=== PATIENT | female | born 1940 | race Caucasian/White ===

== ENCOUNTER 2019-03-03 22:50 | Inpatient (IN) | payer MEDICARE ==
--- NOTE | 2019-03-03 22:55 | ED ---
Complex/Multi-Sys Presentation - HPI Summary HPI Summary: This patient is a 78 year old F presenting to [facility] by EMS with a chief complaint of general pain. Pt called EMS because she had not had a BM in 3-4 days, and a severe pain in her buttock. Per EMS, pt also had abdominal pain and SOB. Pt lives with . Pt reports she cannot move or roll over. Patient reports nausea, loss of appetite. Patient denies vomiting. Pt was supposed to have an appointment with Dr. Kraus on 01/26/19. Pt is not getting radiation or chemotherapy. Per triage, the patient rates the pain 6/10 in severity. - History Of Current Complaint Chief Complaint: EDAbdPain Hx Obtained From: Patient Onset/Duration: Gradual Onset, Lasting Days, Still Present Timing: Constant Severity Currently: Moderate Severity Initially: Moderate Location: Pain At: - Abdomen, Buttock Aggravating Factor(s): Nothing Alleviating Factor(s): Nothing Associated Signs And Symptoms: Positive: SOB, Abdominal Pain, Other - Constipation, nausea, loss of appetite, buttock pain - Allergies/Home Medications Allergies/Adverse Reactions: Allergies Allergy/AdvReac Type Severity Reaction Status Date / Time Carbapenems Allergy Unknown Verified 03/03/19 23:59 Reaction Details Cephalosporins Allergy Unknown Verified 03/03/19 23:59 Reaction Details Penicillins Allergy Unknown Verified 03/03/19 23:59 Reaction Details PMH/Surg Hx/FS Hx/Imm Hx Endocrine/Hematology History: Reports: Hx Thyroid Disease Cardiovascular History: Reports: Hx Hypertension Musculoskeletal History: Reports: Hx Arthritis Sensory History: Reports: Hx Contacts or Glasses Opthamlomology History: Reports: Hx Contacts or Glasses - Surgical History Surgery Procedure, Year, and Place: R Hip replacement, Appy, cholecystectomy Infectious Disease History: No Infectious Disease History: Denies: Traveled Outside the [place] in Last 30 Days - Family History Known Family History: Negative: Hypertension, Diabetes - Social History Lives: With Family Alcohol Use: None Substance Use Type: Reports: None Smoking Status (MU): Light Every Day Tobacco Smoker Type: Cigarettes Have You Smoked in the Last Year: Yes Review of Systems Positive: Other - pos - loss of appetite Positive: Shortness Of Breath Positive: Abdominal Pain, Nausea, Other - pos - constipation. Negative: Vomiting Positive: Other - pain in buttock All Other Systems Reviewed And Are Negative: Yes Physical Exam - Summary Physical Exam Summary: Appearance: Well-appearing, Well-nourished, lying in bed comfortably Skin: Warm, dry, no obvious rash Eyes: sclera anicteric, no conjunctival pallor ENT: mucous membranes moist; Oral pharyngeal thrush Neck: Supple, nontender Respiratory: Clear to auscultation, no signs of respiratory distress Cardiovascular: Normal S1, S2. No murmurs. Normal distal pulses in tibial and radial bilaterally. Abdomen: Soft, nontender, normal active bowel sounds present; Focal tender in RLQ with guarding, no hernia on abdominal wall. Musculoskeletal: Normal, Strength/ROM Intact Neurological: A&Ox3, awake and alert, mentation is normal, speech is fluent and appropriate Psychiatric: affect is normal, does not appear anxious or depressed Triage Information Reviewed: Yes Vital Signs On Initial Exam: Initial Vitals Temp Pulse Resp BP Pulse Ox 98 F 117 16 148/87 93 03/03/19 22:51 03/03/19 22:51 03/03/19 22:51 03/03/19 22:51 03/03/19 22:51 Vital Signs Reviewed: Yes Diagnostics - Vital Signs Vital Signs Temp Pulse Resp BP Pulse Ox 03/03/19 22:51 98 F 117 16 148/87 93 - Laboratory Result Diagrams: 03/03/19 23:18 03/04/19 02:39 Lab Statement: Any lab studies that have been ordered have been reviewed, and results considered in the medical decision making process. - Radiology Abdomen/Pelvis CT Radiology Interpretation Completed By: Radiologist Summary of Radiographic Findings: Abdomen/Pelvis CT reveals, per radiologist, IMPRESSION: 1. Free air consistent with perforated viscus. 2. Colonic diverticulosis with slight wall thickening of the mid sigmoid. Greatest perienteric gas and fluid with mesenteric induration is noted in the. pelvis and is likely the site of perforation. There may be minimal mid sigmoid. diverticulitis. 3. Collection of gas and fluid within the mesentery in the left pelvis which is. surrounded by small bowel segments and may reflect early abscess. There is a. small bowel obstruction with a tapering transition which corresponds to bowel. segments around this collection and may reflect adynamic segments forming the. obstruction. 4. Right lower lobe consolidation with central lobular contour of the. consolidation which may reflect a central mass. There is adjacent trace right. pleural effusion and minimal bibasilar fibro-atelectatic change. 5. There has been prior cholecystectomy and hysterectomy. 6. Left ovarian cyst measuring 2.2 x 1.2 x 2.4 cm. 7. Fatty infiltration of the liver. 8. Focal nodular enlargement of the left michael of the diaphragm measuring 18 x. 19 x 22 mm of uncertain etiology. Metastatic disease is not excluded. ED physician has reviewed this radiology report. - EKG 2305 EKG Rhythm: Atrial Fibrillation Summary of EKG Findings: An EKG at 2305 reveals atrial fibrillation 105 bpm. No STEMI. Complex Multi-Symp Course/Dx Course Of Treatment: This patient is a 78 year old F presenting to [facility] by EMS with a chief complaint of general pain. Pt called EMS because she had not had a BM in 3-4 days, and a severe pain in her buttock. Per EMS, pt also had abdominal pain and SOB. Pt lives with . Pt reports she cannot move or roll over. Patient reports nausea, loss of appetite. Patient denies vomiting. Pt was supposed to have an appointment with Dr. Kraus on 01/26/19. Pt is not getting radiation or chemotherapy. Per triage, the patient rates the pain 6/10 in severity. Physical exam findings are nml except oral pharyngeal thrush, and focal tender RLQ with guarding. Blood work obtained. WBC is 13.9, RBC is 5.31, MCV is 77, MCH is 24, RDW is 20, Plt Count is 149, Sodium is 130, Chloride is 99 , Carbon dioxide is 20, BUN is 43, Creatinine is 0.96, BUN/Creatinine Ratio is 44.8, Glucose is 123, Alkaline Phosphatase is 137, C-reactive Protein is 298.96 , Total protein is 5.6, Albumin is 2.4, Albumin/Globulin Ratio is 0.8. An EKG at 2305 reveals atrial fibrillation 105 bpm. No STEMI. Abdomen/Pelvis CT reveals, per radiologist, IMPRESSION: 1. Free air consistent with perforated viscus. 2. Colonic diverticulosis with slight wall thickening of the mid sigmoid. Greatest perienteric gas and fluid with mesenteric induration is noted in the. pelvis and is likely the site of perforation. There may be minimal mid sigmoid. diverticulitis. 3. Collection of gas and fluid within the mesentery in the left pelvis which is. surrounded by small bowel segments and may reflect early abscess. There is a. small bowel obstruction with a tapering transition which corresponds to bowel. segments around this collection and may reflect adynamic segments forming the. obstruction. 4. Right lower lobe consolidation with central lobular contour of the. consolidation which may reflect a central mass. There is adjacent trace right. pleural effusion and minimal bibasilar fibro-atelectatic change. 5. There has been prior cholecystectomy and hysterectomy. 6. Left ovarian cyst measuring 2.2 x 1.2 x 2.4 cm. 7. Fatty infiltration of the liver. 8. Focal nodular enlargement of the left mihcael of the diaphragm measuring 18 x. 19 x 22 mm of uncertain etiology. Metastatic disease is not excluded. In the ED course the patient was given morphine, fluids, ciprofloxacin, flagyl and ondansetron Inj. Discussed case with Dr. Lara, recommends IV fluids, antibiotics, and admit to hospitalist. 16:48- Discussed case with Dr. Hannon, who accepts pt for admission. Patient will be admitted. The patient is agreeable with this plan. - Diagnoses Provider Diagnoses: Perforation of sigmoid colon due to diverticulitis - Physician Notifications Discussed Care Of Patient With: Jose Lara Time Discussed With Above Provider: 16:29 Instructed by Provider To: Other - Discussed case with Dr. Lara, recommends IV fluids, antibiotics, and admit to hospitalist. 16:48- Discussed case with Dr. Hannon, who accepts pt for admission. - Critical Care Time Critical Care Time: 30-74 min Discharge ED - Sign-Out/Discharge Documenting (check all that apply): Patient Departure - Admit Patient Received Moderate/Deep Sedation with Procedure: No - Discharge Plan Condition: Stable Disposition: ADMITTED TO [facility] Referrals: Ismael Ramirez DO [Primary Care Provider] - - Billing Disposition and Condition Condition: STABLE Disposition: Admitted to [facility] - Attestation Statements Document Initiated by Scribe: Yes Documenting Scribe: Sabina Jackson Provider For Whom Phil is Documenting (Include Credential): Karthik Bangura MD Scribe Attestation: Sabina Cooney, scribed for Karthik Bangura MD on 03/04/19 at 0517. Scribe Documentation Reviewed: Yes Provider Attestation: The documentation as recorded by the Sabina kemp accurately reflects the service I personally performed and the decisions made by me, Karthik Bangura MD Status of Scribe Document: Viewed
[2019-03-03] MEDS ORDERED: NS 0.9% 1000 ML** 2,000 ML IV ONE (22:56)
[2019-03-03] MEDS ORDERED: Morphine 4 MG/ML VIAL (1 ml) 4 MG/ML VIAL IV PRN (22:56)
[2019-03-03] MEDS ORDERED: Ondansetron INJ* 2 MG/ML VIAL IV ONE (22:56)
[2019-03-03] MEDS ORDERED: Morphine 4 MG/ML VIAL (1 ml) 4 MG/ML VIAL IV ONE (23:04)
[2019-03-03] MEDS ORDERED: Morphine 4 MG/ML VIAL (1 ml) 4 MG/ML VIAL ONE (23:06)
[2019-03-03 23:38] LABS: ABS Eosinophils 0.1 10^3/ul (0-0.6); ABS Monocytes 0.5 10^3/ul (0-0.8); ABS Neutrophils 12.2 10^3/ul (1.5-7.7); Hematocrit 41 % (35-47); Hemoglobin 12.9 g/dL (12.0-16.0); Lymphocyte % 7.3 %; Mean Corpuscular HGB Conc 32 g/dL (31-36); Mean Corpuscular Hemoglobin 24 pg (27-31); Mean Corpuscular Volume 77 fL (80-97); Mean Platelet Volume 9.2 fL (7.4-10.4); Nucleated Red Blood Cells % 0.1; Platelet Count 149 10^3/uL (150-450); Red Blood Count 5.31 10^6 /uL (3.70-4.87); Red Cell Distribution Width 20 % (10-15); White Blood Count 13.9 10^3/uL (3.5-10.8)
[2019-03-03 23:39] LABS: Albumin 2.4 g/dL (3.2-5.2); CO2 Carbon Dioxide 20 mmol/L (22-32); Calcium 8.6 mg/dL (8.6-10.3); Chloride 99 mmol/L (101-111); Sodium 130 mmol/L (135-145)
[2019-03-03 23:45] LABS: Blood Urea Nitrogen 43 mg/dL (6-24); Glucose 123 mg/dL (70-100)
[2019-03-04 00:16] LABS: ALT 48 U/L (7-52); Albumin/Globulin Ratio 0.8 (1-3); Alkaline Phosphatase 137 U/L (34-104); Anion Gap 11 mmol/L (2-11); BUN/Creatinine Ratio 44.8 (8-20); C Reactive Protein 298.96 mg/L (<8.01); EGFR African American 68.2 (>60); EGFR Non-African American 56.4 (>60); Globulin 3.2 g/dL (2-4); Total Protein 5.6 g/dL (6.4-8.9)
[2019-03-04 01:12] LABS: Urine Appearance Cloudy; Urine Bacteria 3+ (Absent); Urine Bilirubin Negative (Negative); Urine Blood Negative (Negative); Urine Color Amber; Urine Glucose Negative (Negative); Urine Ketones Trace (Negative); Urine Nitrite Negative (Negative); Urine Protein 1+(30 mg/dL) (Negative); Urine Red Blood Cell Absent (Absent); Urine Specific Gravity 1.027 (1.010-1.030); Urine Squamous Epithelial Cell Present (Absent); Urine Urobilinogen Negative (Negative); Urine White Blood Cell 2+(11-20/hpf) (Absent)
[2019-03-04] MEDS ORDERED: Iodixanol* (CONTRAST) 320 MG/ML 100 ML SDV IV ONE (01:41)
[2019-03-04] MEDS ORDERED: Ondansetron INJ* 2 MG/ML VIAL IV ONE (01:53)
[2019-03-04] MEDS ORDERED: Ciprofloxacin 400MG IVPREMIX(* 400 MG/200 ML BAG IVPB ONE (02:58)
[2019-03-04] MEDS ORDERED: metroNIDAZOLE IV 500 MG/100ML* 500 MG/100 ML BAG IVPB ONE (02:58)
[2019-03-04] MEDS ORDERED: NS 0.9% 1000 ML** 2,000 ML IV ONE (03:31)
[2019-03-04] MEDS ORDERED: Morphine 4 MG/ML VIAL (1 ml) 4 MG/ML VIAL IV PRN (06:24)
[2019-03-04] MEDS ORDERED: NS 0.9% 1000 ML** 1,000 ML IV SCH ×3 (06:30→17:30)
--- NOTE | 2019-03-04 10:37 | HP ---
CC: Dr. Ismael Ramirez; Dr. Jose Lara * ADMISSION HISTORY AND PHYSICAL: DATE OF ADMISSION: 03/04/19 CHIEF COMPLAINT: Abdominal pain. 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 The patient stated that she has been having difficulty with her bowel movements, has not had any bowel movements for almost 3 to 4 days. She went to [place] for some radiation of her brain or could be a Gamma Knife therapy, she is not able to recollect. She states that she is a little confused at this point about what exactly transpired. Either way, she stated that ever since coming back from [place], she has been having worsening pain and her activity has decreased and today she could not even get out of bed or roll into that due to severe pain in her belly. She has also been having severe nausea, but no vomiting, and as mentioned no bowel movements. She has noticed increased urination over the last few days, but given the fact that she could not get up and she has had decreased appetite, she finally decided to come to the ER for further evaluation. After coming to the ER and the patient having an NG tube placement, she does feel a lot better. She otherwise denies any fever or chills. PAST MEDICAL HISTORY: As mentioned, history of AFib, was on Xarelto up until a few months ago when she was admitted at [facility] and was discontinued; history of hypothyroidism; history of hypertension; history of dyslipidemia; history of arthritis; history of recently diagnosed what sounds like right lung cancer with metastasis to the right shoulder and may be even to the brain. She does state that she received some brain radiation. She is scheduled to see Dr. Venu Kraus on Tuesday. She also has a history of spinal stenosis and has been taking multiple narcotics for her pain. PAST SURGICAL HISTORY: Include a disk rupture in the lumbar spine area, which required surgical correction; cholecystectomy; partial hysterectomy, and a right hip surgery. HOME MEDICATIONS: The patient is currently on: 1. Ultram 50 mg q.8 hours p.r.n. 2. Bactrim DS 1 tab p.o. b.i.d. 3. Simvastatin 40 mg p.o. daily at bedtime. 4. Omeprazole 20 mg every morning. 5. Naproxen 220 mg q.8 hours p.r.n. 6. Mometasone by inhalation daily. 7. Lisinopril 20 mg oral daily. 8. Synthroid 50 mcg p.o. every morning. 9. Hydrochlorothiazide 25 mg oral daily. 10. Calcium citrate 1 tablet oral daily. 11. Aspirin 81 mg oral daily. ALLERGIES: The patient is documented to be allergic to CARBAPENEM, CEPHALOSPORIN, and PENICILLIN. FAMILY HISTORY: Father of [place], mother at age of 92 due to old age, but otherwise noncontributory at this point. SOCIAL HISTORY: The patient quit smoking about 4 to 5 months ago, prior to that was heavy smoker. Denies any alcohol or drug abuse. Lives with her , who is her surrogate decision maker and the patient already opted for DNR/DNI, as she states that there is a lot going on with her and she does not want to be resuscitated. REVIEW OF SYSTEMS: A 14-point review of systems did not reveal any new information other than what is stated in the HPI. PHYSICAL EXAMINATION GENERAL: The patient is awake, alert, oriented x3, did not appear to be in any acute respiratory distress. VITAL SIGNS: In the ER, BP was noted to be 109/68, heart rate 92, respiration rate 14, temperature was 98 degrees Fahrenheit, oxygen saturation is 97% on room air. HEAD AND NECK: Atraumatic, normocephalic. Oral mucosa was dry. Neck is supple. No jugular venous distention. LUNGS: Few intermittent rhonchi, but otherwise clear. HEART: S1, S2. Regular rate and rhythm. ABDOMEN: Distended with minimal tenderness. EXTREMITIES: Bilateral lower extremity edema was noted, which was nonpitting in nature. DIAGNOSTIC STUDIES/LAB DATA: Labs: CBC shows mildly elevated white count of 13.9, hemoglobin and hematocrit stable. Platelet count was found minimally decreased at 49. Comprehensive metabolic panel shows minimally decreased sodium at 139, bicarb minimally decreased at 20, lactic acid was noted to be 1.3 , C-reactive protein at 298. Albumin was decreased at 2.4. Potassium was still showing hemolyzed sample, so it is pending. Urinalysis shows trace leuk esterase and trace ketones, negative for any nitrite. There is 1+ protein noted. CT images was read as free air consistent with perforated viscus, colonic diverticulosis with slight wall thickening of the sigmoid colon, greatest perienteric gas and fluid with mesenteric is noted in the pelvis, it is likely the site of perforation. There may be minimal midsigmoid diverticulitis. Collection of gas and fluid with mesentery in the left pelvis with surrounding small bowel segment may reflect an abscess. There was a small bowel obstruction with tapering transition, which corresponds to small bowel subsegments around this collection may reflect adynamic segments forming the obstruction. Right lower lobe consolidation with central lobular contour of the consolidation, which may reflect residual mass. There is adjacent trace right pleural effusion and minimal bibasilar fibroelastic change. There is prior hysterectomy and cholecystectomy. Left ovarian cyst and fatty infiltration of the liver, focal nodular enlargement of left michael of the diaphragm measuring 18 x 19 x 22 mm of uncertain etiology, metastatic disease is not excluded. EKG showed AFib at 105 beats per minute. When compared to her older EKG from 2006, the waveform is not significantly different. IMPRESSION: This is a 78-year-old female with unfortunate history of lung cancer with metastasis to shoulder and brain; history of atrial fibrillation, recently stopped anticoagulation for unknown reason at [facility] ; hypothyroidism; hypertension; and previous multiple abdominal surgeries here with small bowel obstruction and perforated viscus. ASSESSMENT AND PLAN: 1. Small bowel obstruction and perforated viscus. According to the surgeon that the ER physician spoke to, this is likely contained and recommended IV fluids and antibiotics. We will consult surgeon to reevaluate the patient to see if any laparotomy is to be performed, especially as the CT scan was suggestive of some early abscess formation. In the meantime, we will continue the Cipro, Flagyl that was started in the ER. Continue with low intermittent suction via NG tube and keep the patient n.p.o. and hold all BP medications as the patient may become septic and septic shock. 2. Right lung mass, likely the lung cancer rather than a real consolidation, but the patient is on broad-spectrum antibiotics with fluoroquinolones, which would cover any pneumonia if truly present. 3. History of atrial fibrillation, off anticoagulation. 4. History of hypertension. We will hold BP medications as listed. 5. History of hypothyroidism. We can replace home levothyroxine with IV at half the dosage. 6. History of dyslipidemia. We will hold cholesterol medication. 7. History of arthritis and spinal stenosis, on multiple pain medications. 8. History of lung cancer with brain metastasis, on multiple pain medications. Sees Dr. Kraus. 9. DVT prophylaxis with Lovenox. 10. Code status. The patient wishes to be DNR/DNI and being the surrogate decision maker. [id number]/CPS #: [id number]
[2019-03-04] MEDS: Enoxaparin(*) 40 MG/0.4 ML SYR SUBCUT SCH (10:46)
[2019-03-04] MEDS: Ciprofloxacin 400MG IVPREMIX(* 400 MG/200 ML BAG IVPB SCH (15:06)
[2019-03-04] MEDS: Hydrocortisone INJ* 100 MG VIAL IV SCH ×2 (15:06→22:39)
[2019-03-04] MEDS: metroNIDAZOLE IV 500 MG/100ML* 500 MG/100 ML BAG IVPB SCH (16:34)
[2019-03-04] MEDS ORDERED: fentaNYL* 50 MCG/ML 2 ML VIAL (100 MCG VIAL) ONE ×3 (17:08→22:36)
[2019-03-04] MEDS ORDERED: Midazolam* 1 MG/ML 5 ML VIAL (5 MG) ONE (17:09)
[2019-03-04] MEDS ORDERED: Levalbuterol 0.63MG/3ML NEB* UNIT OF USE INH ONE (17:26)
--- NOTE | 2019-03-04 17:26 | PN ---
Progress Note - Progress Note Date of Service: 03/04/19 Note: After further review of the patient with Dr. Mojica and after further discussion with the patient, I have recommended we proceed to the OR for Dennis procedure. The nature of the procedure, indications, risks, benefits, alternatives and option of no treatment have been discussed. Risks explained including, not limited to: bleeding, infection, pain, scarring, blood clots, stroke, pneumonia, prolonged ventilation, risk of GETA and . All questions answered. She stated understanding and agreed to proceed. I also called her daughter in law, Ivette Brito, at her request to inform the family as her is hard of hearing.
[2019-03-04] MEDS ORDERED: Famotidine IV* 10 MG/ML 2 ML (20 mg) IV ONE (17:28)
[2019-03-04] MEDS ORDERED: Rocuronium* 10 MG/ML VIAL ONE ×2 (18:56→21:01)
[2019-03-04] MEDS ORDERED: Phenylephrine 40 MCG/ML SYRINGE ONE (20:24)
[2019-03-04] MEDS ORDERED: Dexamethasone IV* 4 MG/ML 1 ML (4 MG) ONE (20:24)
[2019-03-04] MEDS ORDERED: EPHEDrine (Pressors)* 50 MG/ML VIAL ONE (20:24)
[2019-03-04] MEDS ORDERED: DiMENhydriNATE IV* 50 MG/ML VIAL ONE (20:24)
[2019-03-04] MEDS ORDERED: Lidocaine 2% PF * 5 ML VIAL ONE (20:24)
[2019-03-04] MEDS ORDERED: Ketorolac INJ* 30 MG/ML 1 ML VIAL ONE (20:24)
[2019-03-04] MEDS ORDERED: Ondansetron INJ* 2 MG/ML VIAL ONE (20:24)
[2019-03-04] MEDS ORDERED: Propofol* 10 MG/ML 20 ML BTL ONE (20:24)
[2019-03-04] MEDS ORDERED: Succinylcholine* 20 MG/ML 10 ML VIAL ONE (20:24)
[2019-03-04] MEDS ORDERED: Phenylephrine 10 MG/ML VIAL* 1 ML VIAL ONE (20:24)
[2019-03-04] MEDS ORDERED: HYDROmorphone INJ1* 1 MG/ML SYRINGE ONE ×2 (20:43→21:24)
[2019-03-04] MEDS ORDERED: Metoprolol Tartrate IV* 1 MG/ML 5 ML VIAL ONE (21:06)
--- NOTE | 2019-03-04 21:38 | CONS ---
CC: Ismael Ramirez DO; Venu Kraus MD * SURGICAL CONSULTATION REPORT: DATE OF CONSULT: 03/04/19 REASON FOR CONSULT: Sigmoid diverticulitis and small bowel obstruction. HISTORY OF PRESENT ILLNESS: Corazon Christensen is a 78-year-old female with a recently diagnosed lung cancer with metastasis to her shoulder. She has a brain lesion for which she recently underwent Gamma Knife treatment in [facility]. She states that was Tuesday this past week and after she came back, she developed abdominal pain. She does have a history of chronic constipation. Reports she took some stool softeners prior to that treatment. Her pain became worse and has been associated with nausea and decreased flatus. She presented to the emergency room and underwent an abdominal imaging that demonstrated free air, right lower lobe consolidation with suggestion of a mass, trace pleural effusion. She had distended stomach and proximal small bowel with some sigmoid wall thickening suggestive of the sigmoid as the potential source of the perforation. There was distal small bowel collapse, which was suggestive of small bowel obstruction. She was noted to be status post cholecystectomy and status post hysterectomy. The patient was administered antibiotics. She was admitted to the medical service. The patient at present reports abdominal pain that is primarily localized in the left lower quadrant. PAST MEDICAL HISTORY: Significant for metastatic lung cancer, atrial fibrillation, hypothyroidism, hypertension, dyslipidemia, arthritis. PAST SURGICAL HISTORY: She had open partial hysterectomy, cholecystectomy, lumbar spine surgery, and right hip surgery. HOME MEDICATIONS: 1. Decadron. 2. Ultram. 3. Bactrim. 4. Zocor. 5. Omeprazole. 6. Naprosyn. 7. Mometasone. 8. Zestril. 9. Synthroid. 10. Hydrochlorothiazide. 11. Calcium citrate. 12. Aspirin. ALLERGIES: CARBAPENEM, CEPHALOSPORIN, and PENICILLIN with unknown reaction to each. FAMILY HISTORY: Father had heart attack and . Mother of old age. SOCIAL HISTORY: She is . She has a history of smoking with recent cessation 4 to 5 months ago. Denies alcohol or drug use. REVIEW OF SYSTEMS: Completed and significant for the above-mentioned positives and negatives, otherwise 14-point review was negative. PHYSICAL EXAM: She is a 78-year-old female, 5 feet 2 inches, 200 pounds, BMI of 36.6 with temperature 97.6, pulse 91, respirations 18, O2 sat on room air of 96%, blood pressure 100/62. Head is normocephalic and atraumatic. Sclerae anicteric. Her mucous membranes appear moist. Her neck is notable for midline trachea. Her lungs are clear to auscultation bilaterally without wheezes. Her heart is irregularly irregular. S1, S2. Abdomen is obese. There are multiple scars. No bowel sound is present, is distended, soft. There is mild diffuse tenderness with marked tenderness in the left lower quadrant. The extremities are warm without cyanosis. DIAGNOSTIC STUDIES/LAB DATA: WBCs were 13.9, hemoglobin 12.9, platelets 149. No shift. Sodium was 130, chloride was 99, bicarb was 20, creatinine was 0.96, BUN was 40, glucose was 123, lactic acid was 1.3 and repeated at 1.0. Alk phos was elevated at 137. CRP was 298. Albumin was 2.4. Urine shows cloudy appearance, 1+ protein, trace ketones, 2+ wbc's, 3+ bacteria. CT imaging was reviewed and findings as noted above. IMPRESSION: This is a 78-year-old female with apparent perforated diverticulitis as well as small bowel obstruction. The patient is clinically appearing quite well, however. Although she does not appear septic, she is on steroids and this is of concern. I will further discuss with Dr. Mojica if further medical optimization needs to be done prior to surgery. I did discuss the surgical plan for laparotomy and Dennis procedure with the patient who seems to understand and does agree. [id number] #: [id number] MTDD
--- NOTE | 2019-03-04 22:29 | BRIEFOPN ---
Brief Operative/Procedure Note - Operation Details Pre-Op Diagnosis: PERFORATED SIGMOID DIVERTICULITIS; METASTATIC LUNG CA Post-Op Diagnosis: SAME WITH INTRAABDOMINAL ABSCESS; JEJUNAL TUMOR WITH LYMPHADENOPATHY Procedures: EXPLORATORY LAPAROTOMY; JENA PROCEDURE; SMALL INTESTINAL BYPASS (PROXIMAL JEJUNOJEJUNOSTOMY) Surgeon(s)/Proceduralists: ROSETTA Anesthesia: GET; ANYI. 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 Specimen(s)/Culture(s) Description: 1) ABSCESS FLUID FOR C&S. 2) SIGMOID COLON Complications: NONE
[2019-03-04] MEDS ORDERED: fentaNYL* 50 MCG/ML 2 ML VIAL (100 MCG VIAL) IV SLOW PU ONE (22:37)
[2019-03-04] MEDS: Lactated Ringers 1000 ML Bag* 1,000 ML IV SCH (22:40)
--- NOTE | 2019-03-04 22:40 | PN ---
Hospitalist Progress Note Date of Service: 03/04/19 HOSPITALIST ADDENDUM Called by SALES PERFORMANCE MANAGER to evaluate patient after transfer from OR. Mrs Christensen is a 78yo F with PMH of metastatic lung CA, Afib, hypothyroidism, HTN , HLD, arthritis, who presented to ED with c/o abdominal pain, found to have perforated viscus, taken to OR by Dr Lara where she underwent ex lap with Dennis procedure and small intestine bypass. Surgical findings of extensive peritonitis, perforated sigmoid diverticulitis, intraabdominal abscess, 2 jejunum tumors with lymphadenopathy. On arrival to ICU patient is tachycardic, in Afib, with HR 150; SBP was in the 80s, but had just received Neosynephrine by Anesthesia, so BP was 120/60 when I saw her. Had also received a Propofol bolus prior to my evaluation, so she was sedated and comfortable. A/P: Severe sepsis secondary to perforated viscus with peritonitis - D/w Dr Montero and Dr Lara. - Will start Fentanyl drip for sedation, and Amiodarone drip for Afib control. She's on Cipro and Flagyl, but reported allergies to Carbapenems, cephalosporins , and penicillins preclude another antibiotic regimen; so despite interaction between Amiodarone and current antibiotics, that's the best option for now. - Continue aggressive fluid resuscitation. Dr Lara will place a central line as she'll require pressors if no response to fluids. - Continue IV steroids as she on steroids as outpatient and at risk for relative adrenal insufficiency. - Continue to monitor closely in ICU.
[2019-03-04] MEDS ORDERED: Amiodarone 150 MG IVPREMIX* 150 MG/100 ML BAG IV ONE (22:43)
[2019-03-04] MEDS ORDERED: Amiodarone 360 MG IVPREMIX* 360 MG/200 ML BAG IV ONE (22:53)
[2019-03-04] MEDS ORDERED: Lactated Ringers 1000 ML Bag* 1,000 ML IV SCH (23:00)
[2019-03-04] MEDS ORDERED: fentaNYL INFUSION 50 MCG/ML* 2,500 MCG/50 ML BAG IV SCH (23:00)
[2019-03-04 23:48] LABS: ABS Eosinophils 0.1 10^3/ul (0-0.6); ABS Lymphocytes 0.4 10^3/ul (1.0-4.8); ABS Monocytes 0.4 10^3/ul (0-0.8); ABS Neutrophils 12.7 10^3/ul (1.5-7.7); Eosinophil % 0.8 %; Hematocrit 35 % (35-47); Hemoglobin 11.2 g/dL (12.0-16.0); Lymphocyte % 2.6 %; Mean Corpuscular HGB Conc 32 g/dL (31-36); Mean Corpuscular Hemoglobin 24 pg (27-31); Mean Corpuscular Volume 75 fL (80-97); Mean Platelet Volume 9.1 fL (7.4-10.4); Nucleated Red Blood Cells % 0.1; Platelet Count 163 10^3/uL (150-450); Red Cell Distribution Width 19 % (10-15); White Blood Count 13.6 10^3/uL (3.5-10.8)
[2019-03-05 00:05] LABS: Albumin 1.8 g/dL (3.2-5.2); Albumin/Globulin Ratio 0.8 (1-3); BUN/Creatinine Ratio 42.3 (8-20); Calcium 6.7 mg/dL (8.6-10.3); EGFR African American 138.4 (>60); EGFR Non-African American 114.3 (>60); Globulin 2.2 g/dL (2-4); Total Bilirubin 0.5 mg/dL (0.2-1.0)
[2019-03-05] MEDS: Lactated Ringers 1000 ML Bag* 1,000 ML IV SCH ×2 (00:11→12:09)
[2019-03-05] MEDS: metroNIDAZOLE IV 500 MG/100ML* 500 MG/100 ML BAG IVPB SCH ×3 (01:13→17:36)
[2019-03-05] MEDS ORDERED: Propofol* 100 ML ONE (02:09)
[2019-03-05] MEDS ORDERED: fentaNYL INFUSION 50 MCG/ML* 2,500 MCG/50 ML BAG IV SCH ×3 (02:11→10:38)
[2019-03-05] MEDS ORDERED: Propofol* 100 ML IV SCH (03:00)
[2019-03-05] MEDS: Ciprofloxacin 400MG IVPREMIX(* 400 MG/200 ML BAG IVPB SCH ×2 (03:38→15:15)
[2019-03-05] MEDS: Chlorhexidine MOUTHWASH 0.12%* 15 ML UDC TOPICAL SCH ×2 (04:12→08:44)
[2019-03-05] MEDS: Amiodarone 360 MG IVPREMIX* 360 MG/200 ML BAG IV SCH ×2 (05:45→17:37)
--- NOTE | 2019-03-05 06:03 | OP ---
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 ANESTHESIOLOGIST: Dr. Phipps. ANESTHESIA: General endotracheal. PRE-OP DIAGNOSES: Perforated sigmoid diverticulitis with small bowel obstruction and metastatic lung cancer. 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 OPERATIVE PROCEDURE: Exploratory laparotomy, drainage of intraperitoneal abscess, sigmoid colectomy with end colostomy, and jejunojejunal intestinal bypass. ESTIMATED BLOOD LOSS: 50 mL. IV FLUIDS: 3.7 L of crystalloid. SPECIMENS: 1. Peritoneal abscess fluid for culture and sensitivity. 2. Sigmoid colon. DRAINS: None. COMPLICATIONS: None. COUNTS: Instrument, needle, and sponge counts were correct. DESCRIPTION OF PROCEDURE: The patient was brought to the operating room and placed on the table supine. Sequential compression devices were placed on both lower extremities. General anesthesia was administered. The patient had a Garner catheter placed. She was positioned and padded appropriately and time- out was performed. A midline laparotomy was undertaken in the midline through previous scars extending this above the umbilicus and down to the suprapubic region. The peritoneal cavity was entered and the release of gas was noted. There was extensive fibrinous exudate noted all over the bowel and there was dilated small bowel proximally and collapsed small bowel distally. The sigmoid colon appeared to be erythematous, thickened, and findings were consistent with sigmoid diverticulitis. Upon mobilizing the small bowel from the abdominal cavity and abscess was entered and the abscess fluid was submitted to Microbiology. Copious lavage was performed until clear. Exploration of the abdomen was next performed. Palpation of the liver revealed no masses. Palpation of the stomach performed to confirm proper position of the nasogastric tube. The colon was noted to have a dilated cecum and this was high- riding on the right side. There was stool in the transverse colon and the descending colon was noted to have diverticular disease throughout in the sigmoid. There were adhesions in the pelvis of the rectosigmoid junction to the peritoneum anteriorly. She was noted to have had previous hysterectomy. Small bowel was run from the ileocecal proximally. There was a nodule in the mid jejunum and it was firm, but seemed to be within the wall of the jejunum itself and did not appear to be obstructing. At the proximal jejunum within 6-8 inches of the ligament of Chiki, there was a firm mass that was perhaps a centimeter wide and it was occupying half to two-thirds of the circumference of the wall. Within the mesentery adjacent were large lymph nodes. This mass did not appear to be obstructing at present but concern for evolving obstruction based on this malignant-appearing mass. It led to decision to perform bypass around the area of the mass. First the sigmoid colon was addressed. In the descending colon, the bowel was normal in thickness and a window was created in the mesentery there and the bowel was divided with a ADEBAYO stapler. The rectosigmoid junction where there were adhesions to the peritoneum was mobilized upward and the adhesions were divided to free the rectosigmoid junction. Then, the bowels encircled with the finger at the rectosigmoid junction window created in the mesentery there. The intervening mesentery between the stapled proximal end and the rectosigmoid junction was divided using the Liga-Sure. The rectum was then stapled off with the TA60 stapler and then the specimen was handed off. Copious lavage again was performed in the pelvis. Staple line was noted to be intact proximally and distally. At this point, a jejunojejunal bypass performed. Bookwalter retractor was positioned and then the loop of proximal jejunum was isolated. Enterotomies were made proximal and distal to the bowel mass and then the ADEBAYO 60 stapler was introduced through each limb and the anastomosis was created. The common enterotomy was run close with 3-0 PDS to complete this. Again, the irrigation was performed in this site. Copious lavage of the abdomen was performed until clear. The site for the colostomy had been marked preoperatively and a disk of skin was removed with cautery. Subcutaneous tissues were divided with cautery. The rectus fascia was incised in the cruciate fashion anteriorly. Rectus muscle was split and the bowel was then able to be delivered through the opening and oriented with the mesentery cephalad. At this point, the omentum was drawn beneath the wound and the midline wound was closed with running #1 PDS. The skin was closed with intermittent ciera and packed with half-inch plain gauze packing. The colostomy was matured with 3-0 Vicryl suture and ostomy appliance was applied with dressings. The patient tolerated the procedure well. She remained intubated and was transferred to the ICU directly in guarded condition. [id number]/[facility] #: [id number] MTDD
[2019-03-05] MEDS: Levothyroxine INJ* 100 MCG/5 ML VIAL IV SCH (06:07)
[2019-03-05] MEDS: Hydrocortisone INJ* 100 MG VIAL IV SCH ×3 (06:07→21:17)
[2019-03-05 06:29] LABS: ABS Eosinophils 0.1 10^3/ul (0-0.6); ABS Lymphocytes 0.5 10^3/ul (1.0-4.8); ABS Monocytes 0.4 10^3/ul (0-0.8); ABS Neutrophils 11.7 10^3/ul (1.5-7.7); Eosinophil % 0.5 %; Hematocrit 34 % (35-47); Hemoglobin 10.8 g/dL (12.0-16.0); Lymphocyte % 3.9 %; Mean Corpuscular HGB Conc 32 g/dL (31-36); Mean Corpuscular Hemoglobin 24 pg (27-31); Mean Corpuscular Volume 75 fL (80-97); Mean Platelet Volume 9.2 fL (7.4-10.4); Nucleated Red Blood Cells % 0.1; Platelet Count 138 10^3/uL (150-450); Red Blood Count 4.48 10^6 /uL (3.70-4.87); Red Cell Distribution Width 20 % (10-15); White Blood Count 12.6 10^3/uL (3.5-10.8)
[2019-03-05] MEDS ORDERED: fentaNYL* 50 MCG/ML 2 ML VIAL (100 MCG VIAL) IV ONE (06:36)
[2019-03-05 06:41] LABS: BUN/Creatinine Ratio 37.3 (8-20); EGFR African American 141.5 (>60); EGFR Non-African American 116.9 (>60); Potassium 3.7 mmol/L (3.5-5.0)
[2019-03-05] MEDS ORDERED: Lactated Ringers 1000 ML Bag* 1,000 ML IV ONE (07:00)
[2019-03-05] MEDS: Pantoprazole IV* 40 MG IV SCH (08:44)
[2019-03-05] MEDS: Enoxaparin(*) 40 MG/0.4 ML SYR SUBCUT SCH (08:44)
[2019-03-05 09:21] LABS: Magnesium 1.5 mg/dL (1.9-2.7); Phosphorus 2.8 mg/dL (2.5-5.0)
[2019-03-05] MEDS ORDERED: Magnesium Sulfate 2 GM IV* 2 GM/50 ML BAG IVPB ONE (09:29)
--- NOTE | 2019-03-05 09:45 | PN ---
Progress Note - Progress Note Date of Service: 03/05/19 SOAP: Subjective: She is intubated but on CPAP. Responding appropriately. Objective: Vital Signs Temp 97.6 F 03/05/19 07:50 Pulse 89 03/05/19 08:31 Resp 17 03/05/19 07:00 BP 103/62 03/05/19 08:00 Pulse Ox 99 03/05/19 08:31 Gen: intubated, eyes open. NGT draining bilious o/p Abd: incision with dressings intact; ostomy pink no fct; soft. Intake & Output 03/04/19 03/05/19 03/05/19 18:59 06:59 18:59 Intake Total 1984 3282 5 Output Total 945 35 Balance 1984 2337 -30 Weight 200 lb 225 lb 1.471 oz Intake: IV Fluids 1657 2733 ABX - FLAGYL 30 LR 2733 NS (0.9%) 1627 IVPB 328 320 ABX - CIPROFLOXACIN 219 210 ABX - FLAGYL 109 110 Medicated IV 229 CC - Amiodarone 213 CC - Propofol/Diprivan 16 IV Narcotic Infusion 5 Fentanyl 5 Oral 0 0 Output: NG Tube Drainage Amount 250 Garner 695 35 Laboratory Results - last 24 hr 03/04/19 03/04/19 03/04/19 23:29 23:29 23:29 WBC 13.6 H RBC 4.60 Hgb 11.2 L Hct 35 MCV 75 L MCH 24 L MCHC 32 RDW 19 H Plt Count 163 MPV 9.1 Neut % (Auto) 93.7 Lymph % (Auto) 2.6 [place] % (Auto) 2.9 Eos % (Auto) 0.8 Baso % (Auto) 0.0 Absolute Neuts (auto) 12.7 H Absolute Lymphs (auto) 0.4 L Absolute Monos (auto) 0.4 Absolute Eos (auto) 0.1 Absolute Basos (auto) 0.0 Absolute Nucleated RBC 0.0 Nucleated RBC % 0.1 Sodium 134 L Potassium 4.0 Chloride 107 Carbon Dioxide 20 L Anion Gap 7 BUN 22 Creatinine 0.52 Est GFR ( Amer) 138.4 Est GFR (Non-Af Amer) 114.3 BUN/Creatinine Ratio 42.3 H Glucose 131 H Lactic Acid 2.0 Calcium 6.7 L Phosphorus Magnesium Total Bilirubin 0.50 AST 11 L ALT 27 Alkaline Phosphatase 92 Total Protein 4.0 L Albumin 1.8 L Globulin 2.2 Albumin/Globulin Ratio 0.8 L 03/05/19 03/05/19 06:00 06:00 WBC 12.6 H RBC 4.48 Hgb 10.8 L Hct 34 L MCV 75 L MCH 24 L MCHC 32 RDW 20 H Plt Count 138 L MPV 9.2 Neut % (Auto) 92.8 Lymph % (Auto) 3.9 [place] % (Auto) 2.8 Eos % (Auto) 0.5 Baso % (Auto) 0.0 Absolute Neuts (auto) 11.7 H Absolute Lymphs (auto) 0.5 L Absolute Monos (auto) 0.4 Absolute Eos (auto) 0.1 Absolute Basos (auto) 0.0 Absolute Nucleated RBC 0.0 Nucleated RBC % 0.1 Sodium 134 L Potassium 3.7 Chloride 106 Carbon Dioxide 25 Anion Gap 3 BUN 19 Creatinine 0.51 Est GFR ( Amer) 141.5 Est GFR (Non-Af Amer) 116.9 BUN/Creatinine Ratio 37.3 H Glucose 123 H Lactic Acid Calcium 7.0 L Phosphorus 2.8 Magnesium 1.5 L Total Bilirubin AST ALT Alkaline Phosphatase Total Protein Albumin Globulin Albumin/Globulin Ratio Assessment: POD#1 s/p exlap/Dennis/jejunojenunal bypass. Stable. Plan: Wean to extubate as per CCM. Cont NGT. Cont abx. Await colostomy function.
--- NOTE | 2019-03-05 10:52 | PN ---
Progress Note - Progress Note Date of Service: 03/05/19 Note: Progress Note -- Critical Care 24 hour events/significant events: -s/p OR for ex-lap, yuriy holder of abscess, SB resection wiht jejunojejuno anastamosis -back to ICU intubated -overight stable, no pressors; started on IV amio for AFib RVR -making urine overnight -awake, on low dose propofol, follows commands. on fentanyl 50, states pain when asked -no other events noted overnight -NGT to low suction, bilious output noted -Abd wound intact, close abd, colostomy+ Tele: AFib, Rate controlled Vitals: Vital Signs Temp 97.6 F 03/05/19 07:50 Pulse 90 03/05/19 09:31 Resp 23 03/05/19 09:00 BP 117/74 03/05/19 09:00 Pulse Ox 99 03/05/19 09:31 Intake & Output 03/04/19 03/05/19 03/05/19 18:59 06:59 18:59 Intake Total 1984 3282 5 Output Total 945 65 Balance 1984 2337 -60 Weight 90.718 kg 102.1 kg Intake: IV Fluids 1657 2733 ABX - FLAGYL 30 LR 2733 NS (0.9%) 1627 IVPB 328 320 ABX - CIPROFLOXACIN 219 210 ABX - FLAGYL 109 110 Medicated IV 229 CC - Amiodarone 213 CC - Propofol/Diprivan 16 IV Narcotic Infusion 5 Fentanyl 5 Oral 0 0 Output: NG Tube Drainage Amount 250 Anderson 695 65 O2/Vent: AC 30%; now extubated to 40% aerosol Infusions: fentanyl 25, LR 75 Medications: Enoxaparin Sodium (Lovenox(*)) 40 mg SUBCUT 0800 [facility] Last Admin: 03/05/19 08:44 Dose: 40 mg Hydrocortisone Sodium Succinate (Solu-Cortef*) 100 mg IV Q8H [facility] Last Admin: 03/05/19 06:07 Dose: 100 mg Ciprofloxacin/Dextrose (Cipro 400 Mg Ivpremix(*)) 400 mg in 200 mls @ 200 mls/ hr IVPB Q12H [facility]; Protocol Last Admin: 03/05/19 03:38 Dose: 200 mls/hr Metronidazole/Sodium Chloride (Flagyl 500 Mg Ivpb*) 500 mg in 100 mls @ 100 mls /hr IVPB Q8H [facility] Last Admin: 03/05/19 08:44 Dose: 100 mls/hr Amiodarone HCl (Nexterone 360 Mg/200 Ml Ivpremix*) 360 mg in 200 mls @ 16.667 mls/hr IV .SEE PROTOCOL [facility] Last Admin: 03/05/19 05:45 Dose: 16.667 mls/hr Potassium Chloride (Potassium Chloride 20 Meq/100 Ml Ivpremix*) 20 meq in 100 mls @ 50 mls/hr IV Q2H [facility] Stop: 03/05/19 13:59 Lactated Ringer's (Lactated Ringers 1000 Ml Bag*) 1,000 mls @ 75 mls/hr IV PER RATE [facility] Fentanyl Citrate (Fentanyl Infusion Bag 50 Mcg/Ml 50 Ml) 2,500 mcg in 50 mls @ 0.5 mls/hr IV Q50H [facility]; Protocol Levothyroxine Sodium (Synthroid Inj*) 25 mcg IV 0600 [facility] Last Admin: 03/05/19 06:07 Dose: 25 mcg Ondansetron HCl (Zofran Inj*) 4 mg IV Q4H PRN PRN Reason: NAUSEA/VOMITING Pantoprazole Sodium (Protonix Iv*) 40 mg IV DAILY [facility] Last Admin: 03/05/19 08:44 Dose: 40 mg Physical Exam: Constitutional: awake, alert, no distress, no diaphoresis, intubated Head: normocephalic, atraumatic Eyes: no pallor, no icterus ENT: moist mucous membranes Neck: soft, supple, no jvd CVS: normal rate, irregular+, no murmur Chest/Resp: bilateral air entry, no rhales, no wheeze, no rhonchi, no acc muscle use Abdomen/GI: soft, tender, midline laparotomy site intact+, left colostomy+ intact, nondistended, BS absent Ext/Msk: warm, pulses+, no edema Skin: intact, warm Neuro: awake, alert, orientedx3, moving all extremities, no gross focal deficit Psych: normal affect (once extubated) Labs: Laboratory Results - last 24 hr 03/04/19 03/04/19 03/04/19 23:29 23:29 23:29 WBC 13.6 H RBC 4.60 Hgb 11.2 L Hct 35 MCV 75 L MCH 24 L MCHC 32 RDW 19 H Plt Count 163 MPV 9.1 Neut % (Auto) 93.7 Lymph % (Auto) 2.6 [place] % (Auto) 2.9 Eos % (Auto) 0.8 Baso % (Auto) 0.0 Absolute Neuts (auto) 12.7 H Absolute Lymphs (auto) 0.4 L Absolute Monos (auto) 0.4 Absolute Eos (auto) 0.1 Absolute Basos (auto) 0.0 Absolute Nucleated RBC 0.0 Nucleated RBC % 0.1 Patient Temperature ABG pH ABG pH (Temp Correct) ABG pCO2 ABG pCO2 (Temp Corrct ABG pO2 ABG pO2 (Temp Correct ABG HCO3 ABG O2 Saturation ABG Base Excess Respiration Rate O2 Delivery Device Ventilator Type Vent Mode FiO2 Inspiratory Time PEEP Pressure Support Pressure Control EPAP IPAP BiPAP Sodium 134 L Potassium 4.0 Chloride 107 Carbon Dioxide 20 L Anion Gap 7 BUN 22 Creatinine 0.52 Est GFR ( Amer) 138.4 Est GFR (Non-Af Amer) 114.3 BUN/Creatinine Ratio 42.3 H Glucose 131 H Lactic Acid 2.0 Calcium 6.7 L Phosphorus Magnesium Total Bilirubin 0.50 AST 11 L ALT 27 Alkaline Phosphatase 92 Total Protein 4.0 L Albumin 1.8 L Globulin 2.2 Albumin/Globulin Ratio 0.8 L 03/05/19 03/05/19 03/05/19 06:00 06:00 09:38 WBC 12.6 H RBC 4.48 Hgb 10.8 L Hct 34 L MCV 75 L MCH 24 L MCHC 32 RDW 20 H Plt Count 138 L MPV 9.2 Neut % (Auto) 92.8 Lymph % (Auto) 3.9 [place] % (Auto) 2.8 Eos % (Auto) 0.5 Baso % (Auto) 0.0 Absolute Neuts (auto) 11.7 H Absolute Lymphs (auto) 0.5 L Absolute Monos (auto) 0.4 Absolute Eos (auto) 0.1 Absolute Basos (auto) 0.0 Absolute Nucleated RBC 0.0 Nucleated RBC % 0.1 Patient Temperature Not Reportable ABG pH 7.45 ABG pH (Temp Correct) Not Reportable ABG pCO2 31 L ABG pCO2 (Temp Corrct Not Reportable ABG pO2 98 ABG pO2 (Temp Correct Not Reportable ABG HCO3 23.7 ABG O2 Saturation 100.0 H ABG Base Excess -1.6 Respiration Rate Not Reportable O2 Delivery Device Vent Ventilator Type Not Reportable Vent Mode Cpap FiO2 30 Inspiratory Time Not Reportable PEEP 5 Pressure Support 10 Pressure Control Not Reportable EPAP Not Reportable IPAP Not Reportable BiPAP Not Reportable Sodium 134 L Potassium 3.7 Chloride 106 Carbon Dioxide 25 Anion Gap 3 BUN 19 Creatinine 0.51 Est GFR ( Amer) 141.5 Est GFR (Non-Af Amer) 116.9 BUN/Creatinine Ratio 37.3 H Glucose 123 H Lactic Acid Calcium 7.0 L Phosphorus 2.8 Magnesium 1.5 L Total Bilirubin AST ALT Alkaline Phosphatase Total Protein Albumin Globulin Albumin/Globulin Ratio Microbiology 03/04/19 21:40 Anaerobic Culture - Preliminary Wound 03/04/19 21:40 Skin and Soft Tissue MRSA/MSSA (PCR - Final Misc Source (See Comment) Mrsa Negative S.aureus Negative Gram Stain - Final 03/04/19 22:43 Nasal Screen MRSA (PCR) - Final Nasal Mrsa Not Detected Imaging: CXR 03/05 - ett above heidi; RLL consolidation+, NGT+ Assessment: 78y F w/pmhx of HTN, HLD, hypothyroidism, Afib and recently taken off Xarelto AC, 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 Found to have free air on CT abdomen with sigmoid thickening, colonic diverticulosis and mixed air/fluid in mesentery , Right lung mass/consolidation, thought to be consistent with suspected perforated diverticulitis, possible early abscess formation. Patient was taken to OR 03/04, found to have perforated diverticulitis, two tumours of jejunum, extensive peritonitis and intraabdominal abscess. She had a ex-lap, Dennis Procedure, small intestinal bypass (proximal jejunojejunostomy), as well as drainage of abscess. -Perforated Diverticulitus with Abdominal Abscess -Severe Sepsis -Jejunal Mass/small bowel mass -s/p ex-lap, Dennis Procedure, small intestinal bypass (proximal jejunojejunostomy), drainage of abscess - 03/04 -AFib with RVR Metastatic Lung Adenocarcinoma, to Bones, ?brain Plan: Neuro- -off propofol, follows commands -dec fentanyl to 25mcg/hr -will add dilaudid for pain and eventual d/c of fentanyl infusion -Delirium prec; avoid BDZ CVS- -BP stable, HR stable -Afib, Rate controlled now; On Amio 0.5mg/hr; will d/c when infusion complete -off systemic AC for AFib, unclear why -start BB if BP stable -cont stress steroids, hydrocortisone 100mg iv q8h -making urine; dec LR to 75cc/hr -TTE ongoing for LV function -Maintain MAP>65 Resp- -Intubated; alert, lung clear, on 30% fio2 -CPAP was started by me at 10/5 30%, tolerated well for 30+ min; VC 850+ -CPAP ABG reviewed -CXR unchanged as prior -Extubated to Aerosol mask without complication -Wean Fio2 to keep sat>92% -Bronchodilators PRN, Aspiration prec ID- afebrile. wbc 14-12 -CT with perforation, suspected diverticulitis of sigmoid, abdominal abscess with peritonitis and new x2 jejunal masses -s/p ex-lap / with hartmans, drainage of abscess/washout, jejunojejunostomy -Peritoneal fluid/samples with gram+ and gram neg growth so far -cont Ciprofloxacin IV BID and Flagyl TID for abd coverage (day#2) GI- -NPO -maintian NGT to low intermittent; noted bilious output -bowel sounds absent currently -Antiemetics prn -pain control -followup peritoneal cultures; IV abx continued -new jejunal massess found on ex-lap; new mets? had diffuse LN+ -Wound care to laparotomy site and Hartmanns site -GI prophylaxis - ppi Renal- -CR okay; making urine -replete MgSulfate 2gm IV and KCL 40meq IV -dec LR to 75cc/hr -strict I/O, replete to keep K>4, Mg>2 -anderson as indicated Heme- hg stable, noted drop likely from IVF, no bleeding appreciated -plt stable -Heme/onc consult for metastatic lung adeno and now with jejunal masses+ -DVT proph with SCD/Lovenox Endo-Maintain BG<200, insulin protocol as needed. Cont Synthroid 25mcg IV daily. -on stress steroids hydrocortisone 100mg iv q8h, was on decadron prior to admission. Musculsk- pressure ulcer prophylaxis. Bedrest. Wounds- laparotomy and Hartmanns, intact; cont wound care Nutrition- NPO; NGT to low inter suction DVT prophylaxis: SCD, lovenox sq GI prophylaxis: ppi Central Line: right fem 03/04 Arterial Line: left rad 03/04 Anderson Cathetor: yes 03/04 Disposition: Patient requires Critical Care/ICU for severe sepsis, perforated diverticulitus, s/p ex-lap Patient clinical status: guarded, critical Code Status: DNR/DNI Total Critical Care time is 55 minutes, excluding procedures/teaching Hawk Henriquez MD Painter Decorator (Electronically Signed)
[2019-03-05] MEDS: KCL 20 MEQ/100 ML IVPREMIX* 20 MEQ/100 ML BAG IV SCH ×3 (11:00→19:25)
[2019-03-05] MEDS ORDERED: HYDROmorphone INJ* 0.5 MG/0.5 ML SYRINGE IV SLOW PU PRN (11:11)
[2019-03-05] MEDS ORDERED: HYDROmorphone INJ1* 1 MG/ML SYRINGE IV SLOW PU PRN ×2 (11:11→12:15)
[2019-03-05] MEDS ORDERED: HYDROmorphone INJ* 0.5 MG/0.5 ML SYRINGE IV SLOW PU ONE (12:14)
--- NOTE | 2019-03-05 15:29 | PN ---
Progress Note - Progress Note Date of Service: 03/05/19 SOAP: Subjective: []Recent diagnosis of NSCLC, adenocarcinoma, PD-1+ 100%, metastatic to brain and bone. First seen approximately 4 weeks ago with sever nausea and pain. Nausea improved with steroids and has been on narcotics with partial success in pain management. SE of constipation. Gamma knife at [facility] last week. Procedure went well but then developed increased abdominal pain. Presented to ER with abdominal abscess, perforation of diverticulitis. OR last night and in addition to large bowl perforation found to have a small bowl lesion, potentially obstructing and associated LAD. Now status post colostomy and jejunum bypass. Today she is better, off blood pressure support, extubated and conversational. Continues to complain of pain in R shoulder. Enoxaparin Sodium (Lovenox(*)) 40 mg SUBCUT 0800 [facility] Last Admin: 03/05/19 08:44 Dose: 40 mg Hydrocortisone Sodium Succinate (Solu-Cortef*) 100 mg IV Q8H [facility] Last Admin: 03/05/19 14:25 Dose: 100 mg Hydromorphone HCl (Dilaudid Inj1s*) 1 mg IV SLOW PU Q3H PRN PRN Reason: PAIN - MODERATE Last Admin: 03/05/19 14:25 Dose: 1 mg Ciprofloxacin/Dextrose (Cipro 400 Mg Ivpremix(*)) 400 mg in 200 mls @ 200 mls/ hr IVPB Q12H [facility]; Protocol Last Admin: 03/05/19 03:38 Dose: 200 mls/hr Metronidazole/Sodium Chloride (Flagyl 500 Mg Ivpb*) 500 mg in 100 mls @ 100 mls /hr IVPB Q8H [facility] Last Admin: 03/05/19 08:44 Dose: 100 mls/hr Amiodarone HCl (Nexterone 360 Mg/200 Ml Ivpremix*) 360 mg in 200 mls @ 16.667 mls/hr IV .SEE PROTOCOL [facility] Last Admin: 03/05/19 05:45 Dose: 16.667 mls/hr Lactated Ringer's (Lactated Ringers 1000 Ml Bag*) 1,000 mls @ 75 mls/hr IV PER RATE [facility] Last Admin: 03/05/19 12:09 Dose: 75 mls/hr Fentanyl Citrate (Fentanyl Infusion Bag 50 Mcg/Ml 50 Ml) 2,500 mcg in 50 mls @ 0.5 mls/hr IV Q50H [facility]; Protocol Last Admin: 03/05/19 09:15 Dose: 0.5 mls/hr Potassium Chloride (Potassium Chloride 20 Meq/100 Ml Ivpremix*) 20 meq in 100 mls @ 50 mls/hr IV Q2H [facility] Stop: 03/05/19 16:29 Last Admin: 03/05/19 12:15 Dose: 50 mls/hr Levothyroxine Sodium (Synthroid Inj*) 25 mcg IV 0600 [facility] Last Admin: 03/05/19 06:07 Dose: 25 mcg Ondansetron HCl (Zofran Inj*) 4 mg IV Q4H PRN PRN Reason: NAUSEA/VOMITING Pantoprazole Sodium (Protonix Iv*) 40 mg IV DAILY [facility] Last Admin: 03/05/19 08:44 Dose: 40 mg Objective: [] Vital Signs Temp Pulse Resp BP Pulse Ox 98 F 90 15 106/63 93 03/05/19 12:00 03/05/19 15:01 03/05/19 15:01 03/05/19 12:52 03/05/19 15:01 HEENT: pale, OM dry, NTG some cracles at base HR 90s, irreg or skiped beets does have some BS, ventral incision, colostomy w/o gas or fluid. Ext +2 CAREY Assessment: []78 year old with stage IV lung cancer, on pain medication and steroids who presents with perforated diverticulitis. 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 In terms of lung cancer, all therapy palliative. Not a candidate for chemotherapy, if recovers possible candidate immunotherpy. Based on Keynote-24, response to immunotherpy is 45%, 18 moth PFS 45%, 2 year OS 30%. However, she may not recover to have therapy at all. Untreated survival 4-6 months. This also puts aside incidental small bowl tumor of unclear etiology w/ differential including metastatic disease, carciniod, GI primary adenocarcinoma, polyp. Plan: []1. Improving after surgery. If deteriorates agree with DNR/DNI, continue full care otherwise. 2. 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 Taper to Dex 4 am and 2 pm as weans off stress dose steroids. 3. On dilaudid for pain, basilio have Dr. Greene see her after recovery from surgery. XRT to shoulder will be narcotic sparing. 4. Additional tumor small bowl. If we decide to treat her lung cancer, will need pathologic diagnosis. 5. Acute management per ICU team, followed by surgery. 6. Will continue to follow.
--- NOTE | 2019-03-05 16:08 | ECHO ---
*[facility]* [place] [address] Fax #: [phone] Transthoracic Echocardiogram Patient: Corazon Christensen : 1940 Study Date: 03/05/2019 Age: 78 Gender: F HR: 86 bpm Height: 62 in /157.5 cm BSA: 2.01 m^2 Weight: 224.5 lb /102.1 kg BMI: 41.2 kg/m^2 *Water Tender: * Tricia Pardo [facility] *Referring Physician: * Hawk Henriquez *Reading Physician: * Kulwinder Zambrano MD Indications: Atrial Fibrillation. History: Atrial fibrillation. The patient has a metastatic lung malignancy. Risk factors: Former tobacco use. Hypertension. Conclusions Summary: - Left ventricle: The cavity size is normal. Wall thickness is normal. Systolic function is normal by visual assessment. The estimated ejection fraction is 55-60%. Wall motion is normal; there are no regional wall motion abnormalities. - Left atrium: The atrium is mildly dilated. - Right atrium: The atrium is mildly dilated. - Functionally benign heart valves. - Ascending aorta: The ascending aorta is mildly dilated. - Since the prior echocardiogram completed 05/05/15, prior normal ascending aortic size reported. Study data: Transthoracic echocardiogram. Procedure: Transthoracic echocardiography was performed. Image quality was fair. The study was technically limited due to poor acoustic window availability. Complete 2D, spectral Doppler, and color flow Doppler. Location: ICU Patient status: Inpatient. Patient room number: ICU-3. Rhythm: Atrial fibrillation. Findings Left ventricle: The cavity size is normal. Wall thickness is normal. Systolic function is normal by visual assessment. The estimated ejection fraction is 55-60%. Wall motion is normal; there are no regional wall motion abnormalities. Left ventricular diastolic function parameters are indeterminate. Right ventricle: The cavity size is normal. Wall thickness is mildly increased. Systolic function is normal. Left atrium: The atrium is mildly dilated. Right atrium: The atrium is mildly dilated. Mitral valve: The Mitral valve annulus appears mildly calcified. There is trace regurgitation. Aortic valve: The annulus is mildly calcified. The valve is trileaflet. The leaflets are mildly thickened. There is no evidence of stenosis. There is no significant regurgitation. Tricuspid valve: The leaflets are normal thickness. There is trace regurgitation. Pulmonic valve: Not well visualized. There is no evidence of stenosis nor regurgitation. Aorta: Ascending aorta: The ascending aorta is mildly dilated. Aortic arch: The aortic arch is poorly visualized. The aortic root appears normal. Pericardium: A prominent pericardial fat pad is present. There is no significant pericardial effusion. Pulmonary arteries: The main pulmonary artery is normal-sized. Systolic pressure is within the normal range. Pulmonary artery pressure may be underestimated Systemic veins: Inferior vena cava: The vessel is normal in size. There is (>= 50%) respiratory change in the IVC dimension. Measurements Left ventricle Value Ref Aortic valve Value Ref SEAN, LAX 4.5 cm 3.8 - 5.2 Chet diam, ED 2.1 cm ----- ESD, LAX (H) 3.9 cm 2.2 - 3.5 Peak v, S 1.22 m/sec ----- FS, LAX (L) 15 % 27 - 45 VTI, S 24.7 cm ----- PW, ED, LAX (H) 1.0 cm 0.6 - 0.9 Mean grad, S 3.0 mm Hg ----- FS (L) 15 % 27 - 45 Peak grad, S 6.0 mm Hg ----- PW, ED (H) 1.0 cm 0.6 - 0.9 LVOT/AV, VTI ratio 0.57 ----- E', lat chet, TDI 14.1 cm/sec >=10.0 E/e', lat chet, 7 Mitral valve Value Ref TDI Peak E 0.92 m/sec ----- E', med chet, TDI 9.8 cm/sec >=7.0 Peak A 0.01 m/sec --- -- E/e', med chet, 9 Decel time 158 ms ----- TDI Peak grad, D 3.4 mm Hg ----- E', avg, TDI 12.0 cm/sec Peak E/A ratio 183.8 ----- E/e', avg, TDI 8 <=14 Pulmonic valve Value Ref LVOT Value Ref Peak v, S 0.75 m/sec ----- Peak josé luis, S 0.73 m/sec Peak grad, S 2.0 mm Hg ----- VTI, S 14.0 cm Mean grad, S 1 mm Hg Tricuspid valve Value Ref TR peak v 2.6 m/sec <=2.8 Ventricular septum Value Ref Peak RV-RA grad, S 27 mm Hg ----- IVS, ED (H) 1.0 cm 0.6 - 0.9 Aortic root Value Ref Right ventricle Value Ref Root diam 3.3 cm <4.1 AW thickness, ED (H) 0.8 cm 0.1 - 0.5 Root max diam, ED 3.3 cm <4.1 SEAN, LAX 2.8 cm SEAN minor ax, A4C (H) 4.0 cm 1.9 - 3.5 Ascending aorta Value Ref mid AAo AP diam, S 3.9 cm ----- Pressure, S 30 mm Hg Pulmonary artery Value Ref Left atrium Value Ref Pressure, S 28.0 mm Hg ----- AP dim, ES (H) 4.20 cm 2.70 - 3.80 Inferior vena cava Value Ref ML dim, A4C 4.5 cm Diam 1.5 cm ----- SI dim, A4C 5.6 cm Vol/bsa, ES, 1-p 32 ml/m^2 11 - 40 A4C Vol/bsa, ES, A/L (H) 40 ml/m^2 16 - 34 Right atrium Value Ref SI dim, ES (H) 5.4 cm 3.4 - 5.3 ML dim, ES, A4C (H) 4.7 cm 2.6 - 4.4 SI dim, ES, A4C (H) 5.4 cm 3.4 - 5.3 Estimated RAP 3 mm Hg Legend: (L) and (H) cirilo values outside specified reference range. Prepared and electronically signed by Kulwinder Zambrano MD 03/05/2019 16:07
[2019-03-05] MEDS: HYDROmorphone INJ1* 1 MG/ML SYRINGE IV SLOW PU PRN ×4 (17:43→23:28)
[2019-03-06] MEDS: metroNIDAZOLE IV 500 MG/100ML* 500 MG/100 ML BAG IVPB SCH ×3 (00:21→16:14)
[2019-03-06] MEDS: HYDROmorphone INJ1* 1 MG/ML SYRINGE IV SLOW PU PRN ×4 (01:30→22:46)
[2019-03-06] MEDS: Lactated Ringers 1000 ML Bag* 1,000 ML IV SCH (02:21)
[2019-03-06] MEDS: Ciprofloxacin 400MG IVPREMIX(* 400 MG/200 ML BAG IVPB SCH (03:32)
[2019-03-06 04:59] LABS: Hematocrit 33 % (35-47); Hemoglobin 10.4 g/dL (12.0-16.0); Mean Corpuscular HGB Conc 31 g/dL (31-36); Mean Corpuscular Hemoglobin 24 pg (27-31); Mean Corpuscular Volume 76 fL (80-97); Mean Platelet Volume 8.7 fL (7.4-10.4); Platelet Count 140 10^3/uL (150-450); Red Blood Count 4.39 10^6 /uL (3.70-4.87); Red Cell Distribution Width 20 % (10-15); White Blood Count 19.3 10^3/uL (3.5-10.8)
[2019-03-06 05:15] LABS: Albumin/Globulin Ratio 0.8 (1-3); Calcium 7.5 mg/dL (8.6-10.3); EGFR African American 115.1 (>60); EGFR Non-African American 95.1 (>60); Globulin 2.6 g/dL (2-4); Indirect Bilirubin 0.2 mg/dL (0.3-1.0); Magnesium 2.1 mg/dL (1.9-2.7); Phosphorus 2.3 mg/dL (2.5-5.0); Potassium 4.1 mmol/L (3.5-5.0); Total Bilirubin 0.3 mg/dL (0.2-1.0); Total Protein 4.6 g/dL (6.4-8.9)
[2019-03-06] MEDS: Levothyroxine INJ* 100 MCG/5 ML VIAL IV SCH (06:10)
[2019-03-06] MEDS: Hydrocortisone INJ* 100 MG VIAL IV SCH ×3 (06:10→22:46)
[2019-03-06] MEDS: Pantoprazole IV* 40 MG IV SCH (08:42)
[2019-03-06] MEDS: Enoxaparin(*) 40 MG/0.4 ML SYR SUBCUT SCH (08:42)
--- NOTE | 2019-03-06 10:22 | PN ---
Progress Note - Progress Note Date of Service: 03/06/19 SOAP: Subjective: []Known to oncology d/t recent diagnosis of Stage IV NSCLC approx. 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 Presented to the ER 03/03 with SBO and perforated diverticuli. POD 2, laparotomy, abscess drainage, and incidentally found small bowel lesion with diverting ostomy. Extubated yesterday afternoon. States pain is OK right now and wants to get up. Plan per ICU to remove femoral line, place PICC, and the OOB activity. NG tube cont.'s to drain dark brown fluid. Ostomy output with serosanginous fluid. Medications: Enoxaparin Sodium (Lovenox(*)) 40 mg SUBCUT 0800 [facility] Last Admin: 03/06/19 08:42 Dose: 40 mg Hydrocortisone Sodium Succinate (Solu-Cortef*) 100 mg IV Q8H [facility] Last Admin: 03/06/19 06:10 Dose: 100 mg Hydromorphone HCl (Dilaudid Inj1s*) 1 mg IV SLOW PU Q2H PRN PRN Reason: PAIN - MODERATE Last Admin: 03/06/19 08:42 Dose: 1 mg Ciprofloxacin/Dextrose (Cipro 400 Mg Ivpremix(*)) 400 mg in 200 mls @ 200 mls/ hr IVPB Q12H [facility]; Protocol Last Admin: 03/06/19 03:32 Dose: 200 mls/hr Metronidazole/Sodium Chloride (Flagyl 500 Mg Ivpb*) 500 mg in 100 mls @ 100 mls /hr IVPB Q8H [facility] Last Admin: 03/06/19 08:21 Dose: 100 mls/hr Lactated Ringer's (Lactated Ringers 1000 Ml Bag*) 1,000 mls @ 75 mls/hr IV PER RATE [facility] Last Admin: 03/06/19 02:21 Dose: 75 mls/hr Levothyroxine Sodium (Synthroid Inj*) 25 mcg IV 0600 [facility] Last Admin: 03/06/19 06:10 Dose: 25 mcg Ondansetron HCl (Zofran Inj*) 4 mg IV Q4H PRN PRN Reason: NAUSEA/VOMITING Pantoprazole Sodium (Protonix Iv*) 40 mg IV DAILY [facility] Last Admin: 03/06/19 08:42 Dose: 40 mg Objective: [] Vital Signs Temp Pulse Resp BP Pulse Ox 99 F 107 20 123/73 91 03/06/19 08:00 03/06/19 09:01 03/06/19 10:00 03/06/19 09:01 03/06/19 09:01 A&Ox3, EOMI, involved in plan of care HRI, A.Fib on tele, rate 100-120 LS dim. @ bases with slight exp. wheeze, mild resp. effort Hypoactive BS Ostomy with serosanginous output NG with dark brown output Abd. dressing CDI Laboratory Results - last 24 hr 03/06/19 03/06/19 04:48 04:48 WBC 19.3 H RBC 4.39 Hgb 10.4 L Hct 33 L MCV 76 L MCH 24 L MCHC 31 RDW 20 H Plt Count 140 L MPV 8.7 Sodium 133 L Potassium 4.1 Chloride 104 Carbon Dioxide 26 Anion Gap 3 BUN 14 Creatinine 0.61 Est GFR ( Amer) 115.1 Est GFR (Non-Af Amer) 95.1 BUN/Creatinine Ratio 23.0 H Glucose 117 H Calcium 7.5 L Phosphorus 2.3 L Magnesium 2.1 Total Bilirubin 0.30 Direct Bilirubin 0.10 Indirect Bilirubin 0.2 L AST 8 L ALT 31 Alkaline Phosphatase 89 Total Protein 4.6 L Albumin 2.0 L Globulin 2.6 Albumin/Globulin Ratio 0.8 L Assessment: []78 year old with stage IV NSLC (PDL1+ 100%), on narcotics for fabian mets and steroids for left parietal lesion s/p Gamma knife who presented with perforated diverticulitis, now POD 2 with incidental finding of small bowel tumor, 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 Further plan of care from oncology will be dependent on her recovery, pathology of new mass, and patient wishes; at this time Mrs. Christensen is just anxious to get OOB. Plan: []1. Sepsis 2/2 perforated diverticuli with abscess: Management per ICU and surgery 2. New small bowel mass: path pending 3. A.Fib: hx. hemoptysis with initial diagnosis and has been off anti- coagulation 4. NSCLC: plan RT to right shoulder once stabilized, consider Pembroluzimab if stabilizes, tx. may be complicated by small bowel mass path results
--- NOTE | 2019-03-06 10:36 | PN ---
Progress Note - Progress Note Date of Service: 03/06/19 Note: Progress Note -- Critical Care 24 hour events/significant events: -extubated yesterday; on NC now -no distress ovenright; pain controlled with IV push dilaudid -on IVF -no cp/sob/n/v -remaisn in bed -off amio infusion; HR 110s now, BP stable Tele: AFib, Rate controlled Vitals: Vital Signs Temp 99 F 03/06/19 08:00 Pulse 107 03/06/19 09:01 Resp 20 03/06/19 10:00 BP 123/73 03/06/19 09:01 Pulse Ox 91 03/06/19 09:01 Intake & Output 03/05/19 03/06/19 03/06/19 18:59 06:59 18:59 Intake Total 1916 1662 Output Total 850 506 70 Balance 1066 1156 -70 Weight 105.868 kg Intake: IV Fluids 1545 894 ABX - CIPROFLOXACIN 66 LR 1468 894 NS (0.9%) 11 IVPB 300 635 ABX - CIPROFLOXACIN 418 ABX - FLAGYL 217 NS (0.9%) 300 Medicated IV 11 133 CC - Amiodarone 133 CC - Propofol/Diprivan 11 IV Narcotic Infusion 5 Fentanyl 5 Oral 0 0 Tube Feeding Flush Amount 55 Output: NG Tube Drainage Amount 450 200 Anderson 400 306 70 Other: Date of Last Bowel 03/01/19 Movement O2/Vent: NC 2 L Infusions: LR 50 Medications: Enoxaparin Sodium (Lovenox(*)) 40 mg SUBCUT 0800 [facility] Last Admin: 03/06/19 08:42 Dose: 40 mg Hydrocortisone Sodium Succinate (Solu-Cortef*) 100 mg IV Q8H [facility] Last Admin: 03/06/19 06:10 Dose: 100 mg Hydromorphone HCl (Dilaudid Inj1s*) 1 mg IV SLOW PU Q2H PRN PRN Reason: PAIN - MODERATE Last Admin: 03/06/19 08:42 Dose: 1 mg Ciprofloxacin/Dextrose (Cipro 400 Mg Ivpremix(*)) 400 mg in 200 mls @ 200 mls/ hr IVPB Q12H [facility]; Protocol Last Admin: 03/06/19 03:32 Dose: 200 mls/hr Metronidazole/Sodium Chloride (Flagyl 500 Mg Ivpb*) 500 mg in 100 mls @ 100 mls /hr IVPB Q8H [facility] Last Admin: 03/06/19 08:21 Dose: 100 mls/hr Lactated Ringer's (Lactated Ringers 1000 Ml Bag*) 1,000 mls @ 75 mls/hr IV PER RATE [facility] Last Admin: 03/06/19 02:21 Dose: 75 mls/hr Levothyroxine Sodium (Synthroid Inj*) 25 mcg IV 0600 [facility] Last Admin: 03/06/19 06:10 Dose: 25 mcg Ondansetron HCl (Zofran Inj*) 4 mg IV Q4H PRN PRN Reason: NAUSEA/VOMITING Pantoprazole Sodium (Protonix Iv*) 40 mg IV DAILY [facility] Last Admin: 03/06/19 08:42 Dose: 40 mg Physical Exam: Constitutional: awake, alert, no distress, no diaphoresis Head: normocephalic, atraumatic Eyes: no pallor, no icterus ENT: moist mucous membranes Neck: soft, supple, no jvd CVS: normal rate, irregular+, no murmur Chest/Resp: bilateral air entry, no rhales, no wheeze, no rhonchi, no acc muscle use Abdomen/GI: soft, tender, midline laparotomy site intact+, left colostomy+ intact, nondistended, BS hypoactive+ Ext/Msk: warm, pulses+, +edema bilateral LE Skin: intact, warm Neuro: awake, alert, orientedx3, moving all extremities, no gross focal deficit Psych: normal affect Labs: Laboratory Results - last 24 hr 03/06/19 03/06/19 04:48 04:48 WBC 19.3 H RBC 4.39 Hgb 10.4 L Hct 33 L MCV 76 L MCH 24 L MCHC 31 RDW 20 H Plt Count 140 L MPV 8.7 Sodium 133 L Potassium 4.1 Chloride 104 Carbon Dioxide 26 Anion Gap 3 BUN 14 Creatinine 0.61 Est GFR ( Amer) 115.1 Est GFR (Non-Af Amer) 95.1 BUN/Creatinine Ratio 23.0 H Glucose 117 H Calcium 7.5 L Phosphorus 2.3 L Magnesium 2.1 Total Bilirubin 0.30 Direct Bilirubin 0.10 Indirect Bilirubin 0.2 L AST 8 L ALT 31 Alkaline Phosphatase 89 Total Protein 4.6 L Albumin 2.0 L Globulin 2.6 Albumin/Globulin Ratio 0.8 L Microbiology 03/04/19 00:47 Urine Culture - Final Urine Escherichia Coli 03/04/19 21:40 Skin and Soft Tissue MRSA/MSSA (PCR - Final Misc Source (See Comment) Mrsa Negative S.aureus Negative Gram Stain - Final Wound Culture - Preliminary Escherichia Coli 03/04/19 21:40 Anaerobic Culture - Preliminary Wound Imaging: CXR 03/05 - ett above heidi; RLL consolidation+, NGT+ Assessment: 78y F w/pmhx of HTN, HLD, hypothyroidism, Afib and recently taken off Xarelto AC, 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 Found to have free air on CT abdomen with sigmoid thickening, colonic diverticulosis and mixed air/fluid in mesentery, Right lung mass/consolidation, thought to be consistent with suspected perforated diverticulitis, possible early abscess formation. Patient was taken to OR 03/04, found to have perforated diverticulitis, two tumours of jejunum, extensive peritonitis and intraabdominal abscess. She had a ex-lap, Dennis Procedure, small intestinal bypass (proximal jejunojejunostomy), as well as drainage of abscess. -Perforated Diverticulitus with Abdominal Abscess -Severe Sepsis -Jejunal Mass/small bowel mass -s/p ex-lap, Dennis Procedure, small intestinal bypass (proximal jejunojejunostomy), drainage of abscess - 03/04 -AFib Metastatic Lung Adenocarcinoma, to Bones and brain Plan: Neuro- -alert, follows commands -pain well controlled; cont dilaudid 1mg IV q3h PRN -Delirium prec; avoid BDZ CVS- -BP stable, HR stable -Afib, Rate controlled now; off Amio IV; start Lopressor 5mg IV q6h, uptitrate as needed -off systemic AC for AFib -cont stress steroids, hydrocortisone 100mg iv q8h; will decrease tomorrow -cont LR 50cc/hr -has signs off edema; lasix 20mg IV x1 , re-eval after response -TTE -normal LV function, no overt valvular dz -Maintain MAP>65 Resp- -Exubated 03/05; NC, no distress -lasix x1 today -Wean Fio2 to keep sat>92% -Bronchodilators PRN, Aspiration prec ID- afebrile. wbc 14-12-19 -CT with perforation, suspected diverticulitis of sigmoid, abdominal abscess with peritonitis and new x2 jejunal masses -s/p ex-lap 03/04 with hartmans, drainage of abscess/washout, jejunojejunostomy -Peritoneal fluid/samples with gram+ and gram neg growth - E.coli+; pending sensitivity -UTI with E.coli+, noted sensitivities -change cipro to cefepime 2gm IV q12h for UTI/Abd coverage (day#1) (no clear PCN allergy on last use, will monitor with 1st dose cefepime); cont Flagyl TID for anaerobic cov (day#3) GI- -NPO till passing more gas -maintian NGT to low intermittent; noted bilious output 200cc overnight -BS hypoactive -Colostomy appears intact; lap site intact, cont dressing changes -cont pain control, antiemetics prn -IV abx continued -new jejunal massess found on ex-lap; new mets vs primary lesions; awaiting patho -GI prophylaxis - ppi Renal- -CR okay; making urine -lasix 20mg IV x1 today -dec LR to 50cc/hr -strict I/O, replete to keep K>4, Mg>2 -anderson as indicated Heme- hg stable, no bleeding appreciated -plt stable -Heme/onc consult for metastatic lung adeno and now with jejunal masses+; pending patho findings -DVT proph with SCD/Lovenox Endo-Maintain BG<200, insulin protocol as needed. Cont Synthroid 25mcg IV daily. -on stress steroids hydrocortisone 100mg iv q8h, was on decadron prior to admission. Start taper tomorrow. Musculsk- pressure ulcer prophylaxis. oob to chair Wounds- laparotomy and Hartmanns, intact; cont wound care Nutrition- NPO; NGT to low inter suction DVT prophylaxis: SCD, lovenox sq GI prophylaxis: ppi Central Line: right fem 03/04; d/c today; place PICC line for access Arterial Line: left rad d/c 03/05 Anderson Cathetor: yes 03/04, maintain today Disposition: Patient requires Critical Care/ICU for severe sepsis, perforated diverticulitus, s/p ex-lap Patient clinical status: guarded, critical Code Status: DNR/DNI Total Critical Care time is 45 minutes, excluding procedures/teaching Hawk Henriquez MD Chip Separator (Electronically Signed)
[2019-03-06] MEDS ORDERED: Lactated Ringers 1000 ML Bag* 1,000 ML IV SCH (10:44)
[2019-03-06] MEDS ORDERED: Furosemide IV* 10 MG/ML 2 ML VIAL (20 MG) IV ONE (10:49)
[2019-03-06] MEDS: Cefepime 2 GM in Dextrose(*) 2 GM/50 ML BAG IV SCH ×2 (11:38→22:46)
[2019-03-06] MEDS: Metoprolol Tartrate IV* 1 MG/ML 5 ML VIAL IV PRN (11:57)
[2019-03-06] MEDS ORDERED: Furosemide IV* 10 MG/ML 10 ML VIAL (100 MG) IV ONE (13:26)
[2019-03-06] MEDS ORDERED: Metoprolol Tartrate IV* 1 MG/ML 5 ML VIAL IV ONE (13:26)
--- NOTE | 2019-03-06 13:26 | PN ---
Progress Note - Progress Note Date of Service: 03/06/19 Note: Critical Care Called for acute respiratory distress and hypoxia. Patient became acutely short of breath, labored breathing, accessory muscle use , awake/alert, mild abd pain. Sats dropped to 80s, increased ventimask by staff. HR 130-150s afib RVR, BP 160-s/110s. Audible rhales+. Lung exam with rhonchi+, some rhales on left noted. was already given lasix earlier and just had a PICC placed. Stat CXR without any overt PTX on right or left, noted fluid overload/congestion + with persistent RLL consolidation as prior. Assessment Acute hypoxic respiratory failure Suspected acute pulmonary congestion acute decompensated heart failure Afib with RVR Plan NIV for Resp support; on 09/11 100%; RR still ~30 but appears better Lasix 60mg iv x1 lopressor 5mg IV push PRN ativan 0.5mg IV for anxiety/distress No acute pain so no additional dilaudid required. Once stable, will send down for CT chest for further evaluation of congestion/ infiltrates send bmp/mg/phos/bnp/procal/lactic acid may require IV NTF infusion if not improved Total CC time 35 min Abdulkadir Henriquez MD Cable Machine Operator
[2019-03-06] MEDS ORDERED: Albuterol 2.5 MG/3 ML NEB.SOL* (0.083%) INH STA (13:27)
[2019-03-06] MEDS ORDERED: Metoprolol Tartrate IV* 1 MG/ML 5 ML VIAL ONE (13:31)
[2019-03-06] MEDS ORDERED: Furosemide IV* 10 MG/ML 2 ML VIAL (20 MG) ONE (13:32)
[2019-03-06 14:47] LABS: Troponin I 0.01 ng/mL (<0.04)
[2019-03-06 15:06] LABS: BUN/Creatinine Ratio 23.6 (8-20); Calcium 7.6 mg/dL (8.6-10.3); EGFR African American 129.7 (>60); EGFR Non-African American 107.2 (>60); Phosphorus 2.2 mg/dL (2.5-5.0); Potassium 3.5 mmol/L (3.5-5.0)
[2019-03-06] MEDS ORDERED: Magnesium Sulfate 2 GM IV* 2 GM/50 ML BAG IVPB ONE (16:00)
[2019-03-06] MEDS ORDERED: LORazepam INJ* 2 MG/ML 1 ML VIAL IV PUSH ONE (16:43)
[2019-03-06] MEDS ORDERED: Lorazepam PYXIS KEY PRN (16:43)
[2019-03-06] MEDS ORDERED: LORazepam INJ* 2 MG/ML 1 ML VIAL ONE (16:44)
[2019-03-06] MEDS ORDERED: Lorazepam PYXIS KEY ONE (16:44)
[2019-03-06] MEDS ORDERED: Potassium Phosphate IV* 30 MMOLE in NS 0.9% 250 ML* 250 ML IVPB ONE (17:00)
[2019-03-06] MEDS ORDERED: HYDROmorphone INJ1* 1 MG/ML SYRINGE IV SLOW PU ONE (18:30)
[2019-03-07] MEDS: metroNIDAZOLE IV 500 MG/100ML* 500 MG/100 ML BAG IVPB SCH ×3 (00:53→16:38)
[2019-03-07] MEDS: HYDROmorphone INJ1* 1 MG/ML SYRINGE IV SLOW PU PRN ×5 (02:10→23:46)
[2019-03-07] MEDS: Levothyroxine INJ* 100 MCG/5 ML VIAL IV SCH (05:16)
[2019-03-07] MEDS: Hydrocortisone INJ* 100 MG VIAL IV SCH ×3 (05:16→20:48)
[2019-03-07 06:44] LABS: Hematocrit 33 % (35-47); Hemoglobin 10.8 g/dL (12.0-16.0); Mean Corpuscular HGB Conc 33 g/dL (31-36); Mean Corpuscular Hemoglobin 24 pg (27-31); Mean Corpuscular Volume 74 fL (80-97); Mean Platelet Volume 9.1 fL (7.4-10.4); Platelet Count 144 10^3/uL (150-450); Red Blood Count 4.48 10^6 /uL (3.70-4.87); Red Cell Distribution Width 20 % (10-15); White Blood Count 20.6 10^3/uL (3.5-10.8)
[2019-03-07 06:51] LABS: Albumin 2.3 g/dL (3.2-5.2); Albumin/Globulin Ratio 0.9 (1-3); BUN/Creatinine Ratio 23.7 (8-20); Calcium 7.4 mg/dL (8.6-10.3); EGFR African American 119.6 (>60); EGFR Non-African American 98.8 (>60); Globulin 2.7 g/dL (2-4); Indirect Bilirubin 0.3 mg/dL (0.3-1.0); Magnesium 2.3 mg/dL (1.9-2.7); Phosphorus 2.8 mg/dL (2.5-5.0); Total Bilirubin 0.5 mg/dL (0.2-1.0)
[2019-03-07 08:27] LABS: Potassium 3.5 mmol/L (3.5-5.0)
[2019-03-07] MEDS: Pantoprazole IV* 40 MG IV SCH (08:36)
--- NOTE | 2019-03-07 08:59 | PN ---
Progress Note - Progress Note Date of Service: 03/07/19 SOAP: Subjective: C/o L hip pain. Abdominal pain is improved. Thirsty. Feels like she may have a BM. Reports breathing is ok. Objective: Vital Signs Temp 97.0 F 03/07/19 04:00 Pulse 112 03/07/19 06:01 Resp 20 03/07/19 06:01 BP 97/80 03/07/19 06:01 Pulse Ox 96 03/07/19 06:01 Gen: sitting up in bed. Abd: obese; incision c/d/packed; no erythema; soft and min tender; ostomy pink and edematous without fct. Intake & Output 03/06/19 03/07/19 03/07/19 18:59 06:59 18:59 Intake Total 568 530 Output Total 3405 797 Balance -2837 -267 Weight 226 lb 3.2 oz Intake: IV Fluids 568 370 KPhos 260 LR 568 NS (0.9%) 110 IVPB 160 ABX - FLAGYL 100 Cefepime 60 Oral 0 Output: NG Tube Drainage Amount 200 Garner 3205 797 Other: Date of Last Bowel 03/01/19 Movement Laboratory Results - last 24 hr 03/06/19 03/06/19 03/06/19 14:00 14:00 14:00 WBC RBC Hgb Hct MCV MCH MCHC RDW Plt Count MPV Sodium 137 Potassium 3.5 Chloride 102 Carbon Dioxide 27 Anion Gap 8 BUN 13 Creatinine 0.55 Est GFR ( Amer) 129.7 Est GFR (Non-Af Amer) 107.2 BUN/Creatinine Ratio 23.6 H Glucose 94 Lactic Acid 1.2 Calcium 7.6 L Phosphorus 2.2 L Magnesium 2.0 Total Bilirubin Direct Bilirubin Indirect Bilirubin AST ALT Alkaline Phosphatase Troponin I 0.01 B-Natriuretic Peptide 340 H Total Protein Albumin Globulin Albumin/Globulin Ratio 03/07/19 03/07/19 06:10 06:10 WBC 20.6 H RBC 4.48 Hgb 10.8 L Hct 33 L MCV 74 L MCH 24 L MCHC 33 RDW 20 H Plt Count 144 L MPV 9.1 Sodium 139 Potassium 3.5 Chloride 101 Carbon Dioxide 29 Anion Gap 9 BUN 14 Creatinine 0.59 Est GFR ( Amer) 119.6 Est GFR (Non-Af Amer) 98.8 BUN/Creatinine Ratio 23.7 H Glucose 82 Lactic Acid Calcium 7.4 L Phosphorus 2.8 Magnesium 2.3 Total Bilirubin 0.50 Direct Bilirubin 0.20 H Indirect Bilirubin 0.3 AST 11 L ALT 33 Alkaline Phosphatase 106 H Troponin I B-Natriuretic Peptide Total Protein 5.0 L Albumin 2.3 L Globulin 2.7 Albumin/Globulin Ratio 0.9 L Assessment: POD#3 s/p exlap/Dennis/JJ bypass. Plan: Cont NGT/NPO until ostomy fct. Dispo per CCM/Hospitalist. Cont abx and local wound care. Colostomy teaching.
[2019-03-07] MEDS: Cefepime 2 GM in Dextrose(*) 2 GM/50 ML BAG IV SCH ×2 (11:07→23:03)
[2019-03-07] MEDS ORDERED: Furosemide IV* 10 MG/ML 2 ML VIAL (20 MG) IV ONE (11:22)
--- NOTE | 2019-03-07 11:28 | PN ---
Progress Note - Progress Note Date of Service: 03/07/19 Note: Progress Note -- Critical Care 24 hour events/significant events: -awake, alert; noted events of resp distress/NIV use yesterday -feels better today, on oximask now -afebrile, good urine output noted -feels uncomfortable, mild abd discomfort but less dilaudid usage -no cough, sob mild, no fever/chills, no increasign abd pain -she says she "felt horrible yesterday and wanted to stop it all and " -states she is okay with palliative care consult -noted new Left fem DVT; taken off proph AC due to hemoptysis which has improved much more -BP stable, Afib rate controlled Tele: AFib, Rate controlled Vitals: Vital Signs Temp 98.3 F 03/07/19 08:00 Pulse 107 03/07/19 10:00 Resp 21 03/07/19 10:00 BP 121/97 03/07/19 09:31 Pulse Ox 98 03/07/19 10:00 Intake & Output 03/06/19 03/07/19 03/07/19 18:59 06:59 18:59 Intake Total 568 530 Output Total 3405 797 145 Balance -2837 -267 -145 Weight 102.603 kg Intake: IV Fluids 568 370 KPhos 260 LR 568 NS (0.9%) 110 IVPB 160 ABX - FLAGYL 100 Cefepime 60 Oral 0 Output: NG Tube Drainage Amount 200 Anderson 3205 797 145 Other: Date of Last Bowel 03/01/19 Movement O2/Vent: NC 3 L now; NIV on hold/PRN Infusions: heplock Medications: Heparin Sodium (Porcine) (Heparin Flush Picc/Ml/Cvc(*)) 1 - 3 ml FLUSH 0600, 1800 DAVID; Protocol Last Admin: 03/07/19 05:17 Dose: 1 ml Hydrocortisone Sodium Succinate (Solu-Cortef*) 100 mg IV Q8H DAVID Last Admin: 03/07/19 05:16 Dose: 100 mg Hydromorphone HCl (Dilaudid Inj1s*) 1 mg IV SLOW PU Q3H PRN PRN Reason: PAIN - MODERATE Metronidazole/Sodium Chloride (Flagyl 500 Mg Ivpb*) 500 mg in 100 mls @ 100 mls /hr IVPB Q8H DAVID Last Admin: 03/07/19 08:34 Dose: 100 mls/hr Cefepime HCl (Maxipime 2 Gm In Dextrose Duplex (*)) 2 gm in 50 mls @ 100 mls/ hr IV Q12H COUNTS INCLUDE 234 BEDS AT THE [facility] Last Admin: 03/07/19 11:07 Dose: 100 mls/hr Potassium Chloride (Potassium Chloride 20 Meq/100 Ml Ivpremix*) 20 meq in 100 mls @ 50 mls/hr IV Q2H COUNTS INCLUDE 234 BEDS AT THE [facility] Stop: 03/07/19 17:59 Levothyroxine Sodium (Synthroid Inj*) 25 mcg IV 0600 COUNTS INCLUDE 234 BEDS AT THE [facility] Last Admin: 03/07/19 05:16 Dose: 25 mcg Metoprolol Tartrate (Lopressor Iv*) 5 mg IV Q6H PRN PRN Reason: for HR>90 or SBP>140 Last Admin: 03/06/19 11:57 Dose: 5 mg Miscellaneous (Ativan Pyxis Roberson) 1 ea N/A .ATIVAN IV ROBERSON PRN PRN Reason: PYXIS ROBERSON Ondansetron HCl (Zofran Inj*) 4 mg IV Q4H PRN PRN Reason: NAUSEA/VOMITING Pantoprazole Sodium (Protonix Iv*) 40 mg IV DAILY COUNTS INCLUDE 234 BEDS AT THE [facility] Last Admin: 03/07/19 08:36 Dose: 40 mg Physical Exam Constitutional: awake, alert, no distress, no diaphoresis Head: normocephalic, atraumatic Eyes: no pallor, no icterus ENT: moist mucous membranes Neck: soft, supple, no jvd CVS: normal rate, irregular+, no murmur Chest/Resp: bilateral air entry, some diminished BS on right base with crackles/ rhonchi, no acc muscle use Abdomen/GI: soft, tender, midline laparotomy site intact+, left colostomy+ intact, nondistended, BS hypoactive+ Ext/Msk: warm, pulses+, +edema bilateral LE Skin: intact, warm Neuro: awake, alert, orientedx3, moving all extremities, no gross focal deficit Psych: normal affect Labs: Laboratory Results - last 24 hr 03/06/19 03/06/19 03/06/19 14:00 14:00 14:00 WBC RBC Hgb Hct MCV MCH MCHC RDW Plt Count MPV Sodium 137 Potassium 3.5 Chloride 102 Carbon Dioxide 27 Anion Gap 8 BUN 13 Creatinine 0.55 Est GFR ( Amer) 129.7 Est GFR (Non-Af Amer) 107.2 BUN/Creatinine Ratio 23.6 H Glucose 94 Lactic Acid 1.2 Calcium 7.6 L Phosphorus 2.2 L Magnesium 2.0 Total Bilirubin Direct Bilirubin Indirect Bilirubin AST ALT Alkaline Phosphatase Troponin I 0.01 B-Natriuretic Peptide 340 H Total Protein Albumin Globulin Albumin/Globulin Ratio 03/07/19 03/07/19 06:10 06:10 WBC 20.6 H RBC 4.48 Hgb 10.8 L Hct 33 L MCV 74 L MCH 24 L MCHC 33 RDW 20 H Plt Count 144 L MPV 9.1 Sodium 139 Potassium 3.5 Chloride 101 Carbon Dioxide 29 Anion Gap 9 BUN 14 Creatinine 0.59 Est GFR ( Amer) 119.6 Est GFR (Non-Af Amer) 98.8 BUN/Creatinine Ratio 23.7 H Glucose 82 Lactic Acid Calcium 7.4 L Phosphorus 2.8 Magnesium 2.3 Total Bilirubin 0.50 Direct Bilirubin 0.20 H Indirect Bilirubin 0.3 AST 11 L ALT 33 Alkaline Phosphatase 106 H Troponin I B-Natriuretic Peptide Total Protein 5.0 L Albumin 2.3 L Globulin 2.7 Albumin/Globulin Ratio 0.9 L Imaging: CXR 03/05 - ett above heidi; RLL consolidation+, NGT+ CXR 03/06 - pulm congestion/edema cxr 03/07 - increased Right basal infiltrates/effusion+ Assessment: 78y F w/pmhx of HTN, HLD, hypothyroidism, Afib and recently taken off Xarelto AC, 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 Found to have free air on CT abdomen with sigmoid thickening, colonic diverticulosis and mixed air/fluid in mesentery, Right lung mass/consolidation, thought to be consistent with suspected perforated diverticulitis, possible early abscess formation. Patient was taken to OR 03/04, found to have perforated diverticulitis, two tumours of jejunum, extensive peritonitis and intraabdominal abscess. She had a ex-lap, Dennis Procedure, small intestinal bypass (proximal jejunojejunostomy), as well as drainage of abscess. -Perforated Diverticulitus with Abdominal Abscess -Severe Sepsis -Jejunal Mass/small bowel mass -s/p ex-lap, Dennis Procedure, small intestinal bypass (proximal jejunojejunostomy), drainage of abscess - 03/04 -AFib -acute pulmonary congestion -Acute hypoxic respiratory failure -Acute Left femoral DVT Metastatic Lung Adenocarcinoma, to Bones and brain Plan: Neuro- -alert, follows commands -pain well controlled; cont dilaudid 1mg IV q3h PRN -Delirium prec; avoid BDZ CVS- -BP stable, HR stable -Afib, Rate controlled now; cont Lopressor 5mg IV q6h, uptitrate as needed -off systemic AC for AFib -decrease stress steroids, hydrocortisone 50mg iv q8h; will start po decadron once able to take PO intake -no ivf -good uop with lasix; will redose 20mg IV x1 today, daily re-eval -TTE -normal LV function, no overt valvular dz -Maintain MAP>65 Resp- -on oximask now 3L; appears to be less distress; NIV PRN -CXR 03/07 - with increased infiltrates on right -nontoxic appearing, no sputum; will cont diuretics, cont IV abx for abd coverage as well as lung coverage -incentive spirometry will help to recruit or flutter valve -hemoptysis has resolved; will keep off AC now, likely has bleeding from RLL mass/adeno -Wean Fio2 to keep sat>92% -Bronchodilators PRN, Aspiration prec ID- afebrile. wbc 14-12-19-20 -CT with perforation, suspected diverticulitis of sigmoid, abdominal abscess with peritonitis and new x2 jejunal masses -s/p ex-lap 03/04 with hartmans, drainage of abscess/washout, jejunojejunostomy -Peritoneal fluid/samples growing E.coli and Proteus; sensitivities noted -UTI with E.coli+, noted sensitivities -cont cefepime 2gm IV q12h for UTI/Abd coverage (day#2) , no rash noted; cont Flagyl TID for anaerobic cov (day#4) -eventual change to CTX IV in next 24-48 hours GI- -NPO; not passing gas yet; BS hypoactive -maintian NGT to low intermittent; noted bilious output 400cc overnight -start TPN tonight till able to take PO -Colostomy appears intact; lap site intact, cont dressing changes -cont pain control, antiemetics prn -IV abx continued -new jejunal massess found on ex-lap; new mets vs primary lesions; patho appears benign -GI prophylaxis - ppi Renal- -Cr okay; making urine, negative balance yesterday -repeat lasix 20mg IV x1 today -replete KCL 60meq IV today -strict I/O, replete to keep K>4, Mg>2 -anderson as indicated Heme- hg stable, no bleeding appreciated -plt stable -Heme/onc consult for metastatic lung adeno and now with jejunal masses+; patho appears benign? -New left Fem DVT; unable to get AC due to hemoptysis; will contact IR for Filter placement due to AC contrainidcation; heme agrees -patient is hypercoag from metastatic lung Ca and now post op abdominal surgery , severe sepsis -DVT proph with SCD/Lovenox Endo-Maintain BG<200, insulin protocol as needed. Cont Synthroid 25mcg IV daily. -dec stress steroids hydrocortisone 50mg iv q8h, was on decadron prior to admission. Musculsk- pressure ulcer prophylaxis. oob to chair Wounds- laparotomy and Hartmanns, intact; cont wound care Nutrition- NPO; NGT to low inter suction DVT prophylaxis: SCD; off chemical GI prophylaxis: ppi Central Line: right fem 03/04; PICC 03/06 Arterial Line: left rad d/c 03/05 Naderson Cathetor: yes 03/04, maintain today Disposition: Patient requires Critical Care/ICU for severe sepsis, perforated diverticulitus, s/p ex-lap, respiratory distress Patient clinical status: guarded, critical Code Status: DNR/DNI Total Critical Care time is 45 minutes, excluding procedures/teaching Hawk Henriquez MD Cake Winder (Electronically Signed)
[2019-03-07] MEDS ORDERED: Furosemide IV* 10 MG/ML 2 ML VIAL (20 MG) ONE (11:32)
[2019-03-07] MEDS: KCL 20 MEQ/100 ML IVPREMIX* 20 MEQ/100 ML BAG IV SCH ×3 (11:35→17:07)
[2019-03-07] MEDS ORDERED: Alteplase (CATHFLO)* 2 MG VIAL IV ONE (11:46)
[2019-03-07] MEDS ORDERED: Alteplase (CATHFLO)* 2 MG/2 ML VIAL IV ONE (11:46)
--- NOTE | 2019-03-07 13:31 | CONSULT ---
Palliative / Hospice Consult Ordering Provider: Hawk Henriquez - PCP-[place] [facility] Reason: Goals of care & aftercare/no bowel regimen but s/p colostomy/lorazepam & hydrocodone - Subjective Code Status: DNR Advance Directives Location: In Chart MOLST Part A Completed: Yes - on chart MOLST Part E Completed:: Yes - on chart - History or Present Illness History or Present Illness: 78yo female with NSCLC presents with abdominal pain secondary to perforated diverticulosis. 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 PSHx- pt is an ex tob user, no etoh, no drugs 60 yrs 3 children one is . Xrbvqni-ale-jqcd, abd/pelvis CT-RLL consolidation ? mass, free air with perforated viscus, colonic diverticulosis, ? early abcess and SBO, CXR-L basilar atelectasis and R basilar atelectasis vs consolidation, Echo-EF 55-60%, CXR #2 pulm vascular congestion and bilat interstitial edema, doppler-L lower ext DVT, H/H 10.4/33, BUN/Cr 13/.55, egfr 107, alb 2, Ca 7.6, BNP 340, urine cult-E.Coli and wound- E.coli and P. mirablis. Pt was admitted with perforation went to OR on 03/04 for perforated sigmoid diverticulosis, intraabdominal abscess, jejunal tumor and lymphadenopathy. Pt was extubated on 03/05. All history is from the pt and medical records. Lab Values: Abnormal Lab Results 03/06/19 03/06/19 03/06/19 14:00 14:00 14:00 WBC RBC Hgb Hct MCV MCH MCHC RDW Plt Count MPV Sodium 137 Potassium 3.5 Chloride 102 Carbon Dioxide 27 Anion Gap 8 BUN 13 Creatinine 0.55 Est GFR ( Amer) 129.7 Est GFR (Non-Af Amer) 107.2 BUN/Creatinine Ratio 23.6 H Glucose 94 Lactic Acid 1.2 Calcium 7.6 L Phosphorus 2.2 L Magnesium 2.0 Total Bilirubin Direct Bilirubin Indirect Bilirubin AST ALT Alkaline Phosphatase Troponin I 0.01 B-Natriuretic Peptide 340 H Total Protein Albumin Globulin Albumin/Globulin Ratio Procalcitonin 03/06/19 03/07/19 03/07/19 14:05 06:10 06:10 WBC 20.6 H RBC 4.48 Hgb 10.8 L Hct 33 L MCV 74 L MCH 24 L MCHC 33 RDW 20 H Plt Count 144 L MPV 9.1 Sodium 139 Potassium 3.5 Chloride 101 Carbon Dioxide 29 Anion Gap 9 BUN 14 Creatinine 0.59 Est GFR ( Amer) 119.6 Est GFR (Non-Af Amer) 98.8 BUN/Creatinine Ratio 23.7 H Glucose 82 Lactic Acid Calcium 7.4 L Phosphorus 2.8 Magnesium 2.3 Total Bilirubin 0.50 Direct Bilirubin 0.20 H Indirect Bilirubin 0.3 AST 11 L ALT 33 Alkaline Phosphatase 106 H Troponin I B-Natriuretic Peptide Total Protein 5.0 L Albumin 2.3 L Globulin 2.7 Albumin/Globulin Ratio 0.9 L Procalcitonin 0.36 H Laboratory Last Values WBC 20.6 10^3/uL (3.5-10.8) H 03/07/19 06:10 RBC 4.48 10^6 /uL (3.70-4.87) 03/07/19 06:10 Hgb 10.8 g/dL (12.0-16.0) L 03/07/19 06:10 Hct 33 % (35-47) L 03/07/19 06:10 MCV 74 fL (80-97) L 03/07/19 06:10 MCH 24 pg (27-31) L 03/07/19 06:10 MCHC 33 g/dL (31-36) 03/07/19 06:10 RDW 20 % (10-15) H 03/07/19 06:10 Plt Count 144 10^3/uL (150-450) L 03/07/19 06:10 MPV 9.1 fL (7.4-10.4) 03/07/19 06:10 Neut % (Auto) 92.8 % 03/05/19 06:00 Lymph % (Auto) 3.9 % 03/05/19 06:00 Caroline % (Auto) 2.8 % 03/05/19 06:00 Eos % (Auto) 0.5 % 03/05/19 06:00 Baso % (Auto) 0.0 % 03/05/19 06:00 Absolute Neuts (auto) 11.7 10^3/ul (1.5-7.7) H 03/05/19 06:00 Absolute Lymphs (auto) 0.5 10^3/ul (1.0-4.8) L 03/05/19 06:00 Absolute Monos (auto) 0.4 10^3/ul (0-0.8) 03/05/19 06:00 Absolute Eos (auto) 0.1 10^3/ul (0-0.6) 03/05/19 06:00 Absolute Basos (auto) 0.0 10^3/ul (0-0.2) 03/05/19 06:00 Absolute Nucleated RBC 0.0 10^3/ul 03/05/19 06:00 Nucleated RBC % 0.1 03/05/19 06:00 Patient Temperature Not Reportable 03/05/19 09:38 ABG pH 7.45 (7.35-7.45) 03/05/19 09:38 ABG pH (Temp Correct) Not Reportable 03/05/19 09:38 ABG pCO2 31 mmHg (35-45) L 03/05/19 09:38 ABG pCO2 (Temp Corrct Not Reportable 03/05/19 09:38 ABG pO2 98 mmHg (80-100) 03/05/19 09:38 ABG pO2 (Temp Correct Not Reportable 03/05/19 09:38 ABG HCO3 23.7 mmol/L (19-31) 03/05/19 09:38 ABG O2 Saturation 100.0 % (94.0-98.0) H 03/05/19 09:38 ABG Base Excess -1.6 mmol/L (-2.0-2.0) 03/05/19 09:38 Respiration Rate Not Reportable 03/05/19 09:38 O2 Delivery Device Vent 03/05/19 09:38 Ventilator Type Not Reportable 03/05/19 09:38 Vent Mode Cpap 03/05/19 09:38 FiO2 30 03/05/19 09:38 Inspiratory Time Not Reportable 03/05/19 09:38 PEEP 5 03/05/19 09:38 Pressure Support 10 03/05/19 09:38 Pressure Control Not Reportable 03/05/19 09:38 EPAP Not Reportable 03/05/19 09:38 IPAP Not Reportable 03/05/19 09:38 BiPAP Not Reportable 03/05/19 09:38 Sodium 139 mmol/L (135-145) 03/07/19 06:10 Potassium 3.5 mmol/L (3.5-5.0) 03/07/19 06:10 Chloride 101 mmol/L (101-111) 03/07/19 06:10 Carbon Dioxide 29 mmol/L (22-32) 03/07/19 06:10 Anion Gap 9 mmol/L (2-11) 03/07/19 06:10 BUN 14 mg/dL (6-24) 03/07/19 06:10 Creatinine 0.59 mg/dL (0.51-0.95) 03/07/19 06:10 Est GFR ( Amer) 119.6 (>60) 03/07/19 06:10 Est GFR (Non-Af Amer) 98.8 (>60) 03/07/19 06:10 BUN/Creatinine Ratio 23.7 (8-20) H 03/07/19 06:10 Glucose 82 mg/dL (70-100) 03/07/19 06:10 Lactic Acid 1.2 mmol/L (0.5-2.0) 03/06/19 14:00 Calcium 7.4 mg/dL (8.6-10.3) L 03/07/19 06:10 Phosphorus 2.8 mg/dL (2.5-5.0) 03/07/19 06:10 Magnesium 2.3 mg/dL (1.9-2.7) 03/07/19 06:10 Total Bilirubin 0.50 mg/dL (0.2-1.0) 03/07/19 06:10 Direct Bilirubin 0.20 mg/dL (0.03-0.18) H 03/07/19 06:10 Indirect Bilirubin 0.3 mg/dL (0.3-1.0) 03/07/19 06:10 AST 11 U/L (13-39) L 03/07/19 06:10 ALT 33 U/L (7-52) 03/07/19 06:10 Alkaline Phosphatase 106 U/L (34-104) H 03/07/19 06:10 Troponin I 0.01 ng/mL (<0.04) 03/06/19 14:00 C-Reactive Protein 298.96 mg/L (<8.01) H 03/03/19 23:18 B-Natriuretic Peptide 340 pg/mL (<=100) H 03/06/19 14:00 Total Protein 5.0 g/dL (6.4-8.9) L 03/07/19 06:10 Albumin 2.3 g/dL (3.2-5.2) L 03/07/19 06:10 Globulin 2.7 g/dL (2-4) 03/07/19 06:10 Albumin/Globulin Ratio 0.9 (1-3) L 03/07/19 06:10 Lipase 14 U/L (11.0-82.0) 03/03/19 23:18 Procalcitonin 0.36 ng/mL (<=0.15) H 03/06/19 14:05 Urine Color Kelsey 03/04/19 00:47 Urine Appearance Cloudy 03/04/19 00:47 Urine pH 5.0 (5-9) 03/04/19 00:47 Ur Specific [place] 1.027 (1.010-1.030) 03/04/19 00:47 Urine Protein 1+(30 mg/dl) (Negative) A 03/04/19 00:47 Urine Ketones Trace (Negative) A 03/04/19 00:47 Urine Blood Negative (Negative) 03/04/19 00:47 Urine Nitrate Negative (Negative) 03/04/19 00:47 Urine Bilirubin Negative (Negative) 03/04/19 00:47 Urine Urobilinogen Negative (Negative) 03/04/19 00:47 Ur Leukocyte Esterase Trace (Negative) A 03/04/19 00:47 Urine WBC (Auto) 2+(11-20/hpf) (Absent) A 03/04/19 00:47 Urine RBC (Auto) Absent (Absent) 03/04/19 00:47 Ur Squamous Epith Cells Present (Absent) A 03/04/19 00:47 Urine Bacteria 3+ (Absent) A 03/04/19 00:47 Urine Glucose Negative (Negative) 03/04/19 00:47 Urine Ascorbic Acid * (Negative) A 03/04/19 00:47 - Objective Active Medications: Heparin Sodium (Porcine) (Heparin Flush Picc/Ml/Cvc(*)) 1 - 3 ml FLUSH 0600, 1800 [facility]; Protocol Last Admin: 03/07/19 05:17 Dose: 1 ml Hydrocortisone Sodium Succinate (Solu-Cortef*) 50 mg IV Q8H [facility] Last Admin: 03/07/19 12:35 Dose: 50 mg Hydromorphone HCl (Dilaudid Inj1s*) 1 mg IV SLOW PU Q3H PRN PRN Reason: PAIN - MODERATE Last Admin: 03/07/19 12:34 Dose: 1 mg Metronidazole/Sodium Chloride (Flagyl 500 Mg Ivpb*) 500 mg in 100 mls @ 100 mls /hr IVPB Q8H [facility] Last Admin: 03/07/19 08:34 Dose: 100 mls/hr Cefepime HCl (Maxipime 2 Gm In Dextrose Duplex (*)) 2 gm in 50 mls @ 100 mls/ hr IV Q12H [facility] Last Admin: 03/07/19 11:07 Dose: 100 mls/hr Potassium Chloride (Potassium Chloride 20 Meq/100 Ml Ivpremix*) 20 meq in 100 mls @ 50 mls/hr IV Q2H [facility] Stop: 03/07/19 17:59 Last Admin: 03/07/19 11:35 Dose: 50 mls/hr Dextrose 500 ml/ Amino Acids 850 ml/ Sterile Water 150 ml/Fat Emulsion Intravenous 250 ml/ Sodium Chloride 100 meq/Potassium Chloride 50 meq/Potassium Phosphate 15 mmole/Calcium Gluconate 15 meq/Magnesium Sulfate 10 meq/ Multivitamins 10 ml/ Trace Metals 1 ml/ Nutrition ( Parenteral) 1,850.721 mls @ 77.113 mls/hr CENTR 1700 [facility]; Protocol Levothyroxine Sodium (Synthroid Inj*) 25 mcg IV 0600 [facility] Last Admin: 03/07/19 05:16 Dose: 25 mcg Metoprolol Tartrate (Lopressor Iv*) 5 mg IV Q6H PRN PRN Reason: for HR>90 or SBP>140 Last Admin: 03/06/19 11:57 Dose: 5 mg Miscellaneous (Ativan Pyxis Rob[place]) 1 ea N/A .ATIVAN IV ROBERSON PRN PRN Reason: PYXIS ROBERSON Ondansetron HCl (Zofran Inj*) 4 mg IV Q4H PRN PRN Reason: NAUSEA/VOMITING Pantoprazole Sodium (Protonix Iv*) 40 mg IV DAILY [facility] Last Admin: 03/07/19 08:36 Dose: 40 mg Vital Signs: Vital Signs: Temp Pulse Resp BP Pulse Ox 97.8 F 110 26 112/73 95 03/07/19 12:00 03/07/19 11:01 03/07/19 13:00 03/07/19 11:01 03/07/19 11:01 Patient Weight: Weight 102.603 kg Intake and Output: Intake & Output 03/05/19 03/06/19 03/07/19 03/08/19 06:59 06:59 06:59 06:59 Intake Total 5267 3578 1098 Output Total 945 1356 4202 495 Balance 4322 2222 -3104 -495 Weight 102.1 kg 105.868 kg 102.603 kg Intake: IV Fluids 4390 2439 938 ABX - CIPROFLOXACIN 66 ABX - FLAGYL 30 KPhos 260 LR 2733 2362 568 NS (0.9%) 1627 11 110 IVPB 648 935 160 ABX - CIPROFLOXACIN 429 418 ABX - FLAGYL 219 217 100 Cefepime 60 NS (0.9%) 300 Medicated IV 229 144 CC - Amiodarone 213 133 CC - Propofol/Diprivan 16 11 IV Narcotic Infusion 5 Fentanyl 5 Oral 0 0 0 Tube Feeding Flush Amount 55 Output: NG Tube Drainage Amount 250 650 200 [place] 113 878 3773 495 Other: Date of Last Bowel 03/01/19 Movement ADLs: Meal Record Start: 03/04/19 08: 01 Freq: DAILY@0900,1400,1800 Status: Complete Protocol: Created 03/04/19 08:01 System (Rec: 03/04/19 08:01 System TELE-C09) Document 03/04/19 09:00 [id number] (Rec: 03/04/19 14:33 YOS9812 TELE-C01) Document 03/04/19 14:00 [id number] (Rec: 03/04/19 14:37 PTO9270 TELE-C01) Document 03/04/19 18:00 UAK3014 (Rec: 03/04/19 18:13 ZTX7380 TELE-C11) ADLs: Meal Record Start: 03/04/19 23: 01 Freq: ,13,18 Status: Active Protocol: Created 03/04/19 23:01 [id number] (Rec: 03/04/19 23:01 CCG4715 ICU-M33) Document 03/05/19 09:00 JGB6567 (Rec: 03/05/19 09:51 WFC6920 ICU-M33) Document 03/05/19 13:00 CDE7987 (Rec: 03/05/19 13:07 JFH1566 ICU-M33) Document 03/05/19 18:00 YQK4546 (Rec: 03/05/19 18:04 LNZ8253 ICU-L03) Document 03/06/19 09:00 HFM2389 (Rec: 03/06/19 10:33 DLI4906 ICU-M32) Document 03/06/19 18:00 GZQ6239 (Rec: 03/06/19 18:32 HCG3286 ICU-C15) Document 03/07/19 09:00 HXT4204 (Rec: 03/07/19 10:35 NSA6964 ICU-C15) Intake and Output Start: 03/03/19 22: 54 Freq: Status: Complete Protocol: Created 03/03/19 22:54 System (Rec: 03/03/19 22:54 System ED-C15) Intake and Output Start: 03/04/19 08: 01 Freq: DAILY@0600,1400,2200 Status: Complete Protocol: Created 03/04/19 08:01 System (Rec: 03/04/19 08:01 System TELE-C09) Document 03/04/19 14:00 DZD7140 (Rec: 03/04/19 14:37 DSA9862 TELE-C01) Intake and Output Start: 03/04/19 23: 01 Freq: Q1HR Status: Active Protocol: Created 03/04/19 23:01 ASQ6813 (Rec: 03/04/19 23:01 BGJ8540 ICU-M33) Document 03/04/19 23:35 GHL1936 (Rec: 03/04/19 23:35 ZSS2574 ICU-M33) Document 03/05/19 01:00 YYO3183 (Rec: 03/05/19 01:55 XWL9416 ICU-C12) Document 03/05/19 01:54 JUX6501 (Rec: 03/05/19 01:55 JPX8464 ICU-C12) Document 03/05/19 03:00 OUR5111 (Rec: 03/05/19 03:15 ZWJ1893 ICU-C12) Document 03/05/19 03:56 LCH9684 (Rec: 03/05/19 03:57 SGR1984 ICU-C12) Document 03/05/19 05:00 DBN8258 (Rec: 03/05/19 06:14 HJL8316 ICU-M33) Document 03/05/19 06:00 JEH8829 (Rec: 03/05/19 06:14 KWH0129 ICU-M33) Document 03/05/19 07:00 XIS8051 (Rec: 03/05/19 07:35 KLM3795 ICU-M33) Document 03/05/19 09:00 SSE1846 (Rec: 03/05/19 09:52 VJJ4170 ICU-M33) Document 03/05/19 10:00 SPT9043 (Rec: 03/05/19 10:57 WQD4010 ICU-L03) Document 03/05/19 11:00 SPG6186 (Rec: 03/05/19 12:14 PPW5428 ICU-L03) Document 03/05/19 12:00 MPN6652 (Rec: 03/05/19 12:42 HAB5975 ICU-L03) Document 03/05/19 13:00 CDD6142 (Rec: 03/05/19 13:07 KLM9670 ICU-M33) Document 03/05/19 14:00 ACM9115 (Rec: 03/05/19 14:44 AHP9281 ICU-L03) Document 03/05/19 15:00 ZNE9358 (Rec: 03/05/19 17:53 NSN0549 ICU-L03) Document 03/05/19 16:00 ENY4304 (Rec: 03/05/19 17:59 SOT6362 ICU-L03) Document 03/05/19 17:00 WLO3983 (Rec: 03/05/19 18:03 KWK2383 ICU-L03) Document 03/05/19 18:00 AHA6600 (Rec: 03/05/19 18:04 TGF0953 ICU-L03) Document 03/05/19 19:00 XDK4024 (Rec: 03/05/19 19:04 LND3743 ICU-M33) Co-Sign 03/05/19 19:00 OXU2987 Document 03/05/19 20:00 HLW7934 (Rec: 03/05/19 20:08 PTT3794 ICU-C12) Document 03/05/19 21:00 FTR2763 (Rec: 03/05/19 21:18 IQO2248 ICU-M33) Document 03/05/19 22:00 WFY3945 (Rec: 03/05/19 22:00 ZGX1031 ICU-C12) Document 03/05/19 23:00 JXD9601 (Rec: 03/05/19 23:05 ZYI0148 ICU-C12) Document 03/05/19 23:57 PPB6311 (Rec: 03/05/19 23:57 MPS1947 ICU-C12) Document 03/06/19 01:00 PMD8982 (Rec: 03/06/19 01:05 IGY2990 ICU-C12) Document 03/06/19 02:00 SPX7163 (Rec: 03/06/19 02:04 YBW7309 ICU-C12) Document 03/06/19 03:00 TBB8604 (Rec: 03/06/19 03:12 DRN1328 ICU-C12) Document 03/06/19 04:00 HQT8100 (Rec: 03/06/19 05:06 PJN3334 ICU-C12) Document 03/06/19 05:00 RPQ5264 (Rec: 03/06/19 05:06 JHL5392 ICU-C12) Document 03/06/19 06:00 JWF9838 (Rec: 03/06/19 06:07 XAI4131 ICU-M33) Document 03/06/19 07:00 NGS7407 (Rec: 03/06/19 07:24 UXZ5271 ICU-C12) Document 03/06/19 08:00 MAD3112 (Rec: 03/06/19 09:47 UGA5820 ICU-M32) Document 03/06/19 09:00 PKC2072 (Rec: 03/06/19 09:51 VIR9485 ICU-M32) Document 03/06/19 10:00 FWJ9551 (Rec: 03/06/19 10:32 LVX9261 ICU-M32) Document 03/06/19 11:00 HCY4581 (Rec: 03/06/19 11:25 MYL9444 ICU-M33) Document 03/06/19 12:00 IZE1814 (Rec: 03/06/19 12:34 EEG7870 ICU-M33) Document 03/06/19 13:41 BHF5179 (Rec: 03/06/19 13:41 PQS4007 ICU-M33) Document 03/06/19 14:00 UAH8840 (Rec: 03/06/19 14:24 EXL8093 ICU-C15) Document 03/06/19 15:10 DMD5470 (Rec: 03/06/19 15:11 YTI8970 ICU-M32) Document 03/06/19 16:00 RCN7318 (Rec: 03/06/19 16:59 BJW2811 ICU-M32) Document 03/06/19 17:00 LQR9868 (Rec: 03/06/19 17:38 OAW0971 ICU-M32) Document 03/06/19 18:00 EWD0184 (Rec: 03/06/19 18:20 LIK9102 ICU-M33) Document 03/06/19 19:00 YIQ3884 (Rec: 03/06/19 19:28 YHA8242 ICU-C15) Document 03/06/19 19:59 MET5034 (Rec: 03/06/19 19:59 TDP2745 ICU-M33) Document 03/06/19 20:50 XWT5048 (Rec: 03/06/19 20:50 ORD5584 ICU-M33) Document 03/06/19 23:00 RHC7531 (Rec: 03/06/19 23:14 VMV3468 ICU-C15) Document 03/07/19 00:00 DIB8429 (Rec: 03/07/19 00:13 RTF9339 ICU-C15) Document 03/07/19 00:57 HEB5790 (Rec: 03/07/19 00:57 UQW7243 ICU-M33) Document 03/07/19 02:00 SAG9615 (Rec: 03/07/19 02:57 WED9493 ICU-C15) Document 03/07/19 02:57 AEW8387 (Rec: 03/07/19 02:57 ZLY7580 ICU-C15) Document 03/07/19 06:00 KGP2311 (Rec: 03/07/19 06:02 MZC9235 ICU-M33) Document 03/07/19 07:00 KPP4452 (Rec: 03/07/19 10:00 VTC3102 ICU-C15) Document 03/07/19 08:00 MFS0831 (Rec: 03/07/19 10:00 VSA0519 ICU-C15) Document 03/07/19 09:00 YVC1284 (Rec: 03/07/19 10:35 MDV8736 ICU-C15) Document 03/07/19 10:00 RLU5609 (Rec: 03/07/19 10:53 YXR6205 ICU-C15) Document 03/07/19 10:53 IYK8897 (Rec: 03/07/19 10:53 PYK5546 ICU-C15) Document 03/07/19 12:00 WLS2408 (Rec: 03/07/19 13:17 EOE5226 ICU-C15) Document 03/07/19 13:00 WDS0685 (Rec: 03/07/19 13:17 JEP4429 ICU-C15) Eyes: No Scleral Icterus Ears/Nose/Mouth/Throat: NL Teeth, Lips, Gums Neck: NL Appearance and Movements; NL JVP Cardiovascular: NL Sounds; No Murmurs; No JVD Respiratory: Clear to Auscultation Neurological: Alert and Oriented x 3 - Assessment Assessment: 78yo female with recently diagnosed NSCLC stage 4 s/p colostomy for diverticulosis perforation and abcess - Plan Consult Plan (MU): Palliative Plan: Long discussion with pt about goals of care. Pt is interested in [facility] at discharge. She would like to be able to get around better. She lives on first floor with a bathroom and has a hospital bed. We discussed hospice but she is still interested in pursuing active therapy but she does want to at home. Her is 83 and is going blind but he gets about fairly well. Son and daughter in law live close by and help with driving to appointments. She also has help with [employer]. Pt was recently diagnosed with lung cancer and received gamma knife radiation in [place] which she felt helped with standing and balance but then she developed abdominal pain and went to hospital and had colostomy for perforated diverticulosis and abcess. She says she is not bitter things happen but she is eager to get home. She enjoys reading and keeping in touch with people on the computer. She has been 60yo and has 2 sons and a daughter. Her oldest son committed suicide and her daughter isn't involved currently. Her other son is involved. She is a little wary of rehab since she got c.diff after her hip rehab several years ago. Pt periodically states to staff she wishes it was over but it seems on days she is more tired and has more pain. Pt is declining hospice currently but would be eligible with stage 4 cancer. KPS 50% PPS 50% - Time On Unit Date of Evaluation: 03/07/19 Hospice Consult Time in: 13:00 Hospice Consult Time Out: 14:30 Hospice Consult Time Total: 90 > 50% of Time Spend In Counseling or Coordinating Care: Yes
[2019-03-07] MEDS: TPN CENTRAL STANDARD BASE A CENTR SCH ×12 (17:30)
[2019-03-07] MEDS: Metoprolol Tartrate IV* 1 MG/ML 5 ML VIAL IV PRN (19:37)
[2019-03-08] MEDS: metroNIDAZOLE IV 500 MG/100ML* 500 MG/100 ML BAG IVPB SCH ×4 (00:30→23:49)
[2019-03-08] MEDS: HYDROmorphone INJ1* 1 MG/ML SYRINGE IV SLOW PU PRN ×5 (02:57→23:48)
[2019-03-08] MEDS: Ondansetron INJ* 2 MG/ML VIAL IV PRN (03:07)
[2019-03-08] MEDS ORDERED: Dextrose 50% VIAL 50 ml IV PUSH PRN (04:24)
[2019-03-08] MEDS: Levothyroxine INJ* 100 MCG/5 ML VIAL IV SCH (05:55)
[2019-03-08] MEDS: Hydrocortisone INJ* 100 MG VIAL IV SCH ×3 (05:56→21:17)
[2019-03-08 06:29] LABS: Activated Partial Thrombo Time 24.8 seconds (26.0-38.0); INR 1.13 (0.82-1.09)
[2019-03-08 06:31] LABS: Hematocrit 33 % (35-47); Hemoglobin 10.6 g/dL (12.0-16.0); Mean Corpuscular HGB Conc 32 g/dL (31-36); Mean Corpuscular Hemoglobin 24 pg (27-31); Mean Corpuscular Volume 75 fL (80-97); Platelet Count 135 10^3/uL (150-450); Red Blood Count 4.42 10^6 /uL (3.70-4.87); Red Cell Distribution Width 20 % (10-15); White Blood Count 20.7 10^3/uL (3.5-10.8)
[2019-03-08 06:37] LABS: BUN/Creatinine Ratio 36.7 (8-20); Calcium 7.7 mg/dL (8.6-10.3); EGFR African American 148.2 (>60); EGFR Non-African American 122.5 (>60); Magnesium 2.3 mg/dL (1.9-2.7); Phosphorus 1.6 mg/dL (2.5-5.0); Potassium 3.5 mmol/L (3.5-5.0)
[2019-03-08] MEDS: Insulin LISPRO* 1 UNITS UNIT SUBCUT SCH ×2 (08:59→18:36)
[2019-03-08] MEDS: Pantoprazole IV* 40 MG IV SCH (09:05)
[2019-03-08] MEDS: Cefepime 2 GM in Dextrose(*) 2 GM/50 ML BAG IV SCH (10:25)
[2019-03-08] MEDS ORDERED: Potassium Phosphate IV* 30 MMOLE in NS 0.9% 500 ML* 500 ML IVPB ONE (10:30)
[2019-03-08] MEDS ORDERED: Furosemide IV* 10 MG/ML 2 ML VIAL (20 MG) IV ONE (10:53)
[2019-03-08] MEDS ORDERED: Vancomycin per Pharmacy* NOTE FOLLOW UP SCH (11:00)
--- NOTE | 2019-03-08 11:07 | PN ---
Progress Note - Progress Note Date of Service: 03/08/19 Note: Progress Note -- Critical Care 24 hour events/significant events: -awake, alert; has not required NIV again; on oximask -less abd pain; only shoulder pain -cough+, minimal/no blood, only dark old blood mixed in secretions she suctioned from mouth -no cp/n/v -afebrile -started on TPN -colostomy intact; not much gas passed -for IR for IVC filter today; PICC functioning now Tele: AFib, Rate controlled Vitals: Vital Signs Temp 97.8 F 03/08/19 07:59 Pulse 108 03/08/19 10:01 Resp 21 03/08/19 10:01 BP 119/90 03/08/19 10:01 Pulse Ox 97 03/08/19 10:01 Intake & Output 03/07/19 03/08/19 03/08/19 18:59 06:59 18:59 Intake Total 374 1320 Output Total 1090 575 290 Balance -716 745 -290 Weight 101.831 kg Intake: IV Fluids 266 355 ABX - FLAGYL 100 LR 100 NS (0.9%) 166 255 IVPB 108 110 ABX - FLAGYL 110 LR 66 NS (0.9%) 42 TPN/PPN 855 Oral 0 Output: Urine 175 125 Anderson 915 425 290 Colostomy 25 Other: Date of Last Bowel 03/01/19 Movement O2/Vent: NC 3 L Infusions: TPN @ 77cc/hr Medications: Dextrose (Dextrose 50% Vial 50 Ml*) 25 ml IV PUSH .FOR FS < 60 - SS PRN PRN Reason: FS < 60 Heparin Sodium (Porcine) (Heparin Flush Picc/Ml/Cvc(*)) 1 - 3 ml FLUSH 0600, 1800 [facility]ID; Protocol Last Admin: 03/08/19 06:22 Dose: Not Given Hydrocortisone Sodium Succinate (Solu-Cortef*) 50 mg IV Q8H [facility] Last Admin: 03/08/19 05:56 Dose: 50 mg Hydromorphone HCl (Dilaudid Inj1s*) 1 mg IV SLOW PU Q3H PRN PRN Reason: PAIN - MODERATE Last Admin: 03/08/19 05:56 Dose: 1 mg Metronidazole/Sodium Chloride (Flagyl 500 Mg Ivpb*) 500 mg in 100 mls @ 100 mls /hr IVPB Q8H [facility] Last Admin: 03/08/19 09:10 Dose: 100 mls/hr Dextrose 500 ml/ Amino Acids 850 ml/ Sterile Water 150 ml/Fat Emulsion Intravenous 250 ml/ Sodium Chloride 100 meq/Potassium Chloride 50 meq/Potassium Phosphate 15 mmole/Calcium Gluconate 15 meq/Magnesium Sulfate 10 meq/ Multivitamins 10 ml/ Trace Metals 1 ml/ Nutrition ( Parenteral) 1,850.721 mls @ 77.113 mls/hr CENTR 1700 [facility]; Protocol Last Admin: 03/07/19 17:30 Dose: 77.113 mls/hr Potassium Phosphate 30 mmole/ (Sodium Chloride) 510 mls @ 63.75 mls/hr IVPB ONCE ONE Stop: 03/08/19 18:29 Last Admin: 03/08/19 10:24 Dose: 63.75 mls/hr Ceftriaxone Sodium 1 gm/ (Sodium Chloride) 50 mls @ 100 mls/hr IVPB Q24H DAVID Vancomycin HCl 1,000 mg/ (Sodium Chloride) 250 mls @ 166.667 mls/hr IVPB Q12H [facility]; Protocol Insulin Human Lispro (Humalog*) 0 units SUBCUT FS TID ICU [facility]ID; Protocol Last Admin: 03/08/19 08:59 Dose: 6 units Levothyroxine Sodium (Synthroid Inj*) 25 mcg IV 0600 [facility] Last Admin: 03/08/19 05:55 Dose: 25 mcg Metoprolol Tartrate (Lopressor Iv*) 5 mg IV Q6H PRN PRN Reason: for HR>90 or SBP>140 Last Admin: 03/07/19 19:37 Dose: 5 mg Miscellaneous (Ativan Pyxis Roberson) 1 ea N/A .ATIVAN IV ROBERSON PRN PRN Reason: PYXIS ROBERSON Ondansetron HCl (Zofran Inj*) 4 mg IV Q4H PRN PRN Reason: NAUSEA/VOMITING Last Admin: 03/08/19 03:07 Dose: 4 mg Pantoprazole Sodium (Protonix Iv*) 40 mg IV DAILY [facility] Last Admin: 03/08/19 09:05 Dose: 40 mg Pharmacy Consult (Vancomycin Per Pharmacy*) 1 note FOLLOW UP .VANC PER PHARMACY [facility]; Protocol Physical Exam Constitutional: awake, alert, no distress, no diaphoresis Head: normocephalic, atraumatic Eyes: no pallor, no icterus ENT: moist mucous membranes Neck: soft, supple, no jvd CVS: normal rate, irregular+, no murmur Chest/Resp: bilateral air entry, some diminished BS on right base with crackles/ rhonchi, no acc muscle use Abdomen/GI: soft, tender, midline laparotomy site intact+, left colostomy+ intact, nondistended, BS hypoactive+ Ext/Msk: warm, pulses+, +edema bilateral LE Skin: intact, warm Neuro: awake, alert, orientedx3, moving all extremities, no gross focal deficit Psych: normal affect Labs: Laboratory Results - last 24 hr 03/06/19 03/07/19 03/07/19 14:05 12:55 16:47 WBC RBC Hgb Hct MCV MCH MCHC RDW Plt Count MPV INR (Anticoag Therapy) APTT Sodium Potassium Chloride Carbon Dioxide Anion Gap BUN Creatinine Est GFR ( Amer) Est GFR (Non-Af Amer) BUN/Creatinine Ratio Glucose POC Glucose (mg/dL) 90 97 Calcium Phosphorus Magnesium Triglycerides Procalcitonin 0.36 H 03/07/19 03/08/19 03/08/19 19:55 00:06 04:15 WBC RBC Hgb Hct MCV MCH MCHC RDW Plt Count MPV INR (Anticoag Therapy) APTT Sodium Potassium Chloride Carbon Dioxide Anion Gap BUN Creatinine Est GFR ( Amer) Est GFR (Non-Af Amer) BUN/Creatinine Ratio Glucose POC Glucose (mg/dL) 97 157 H 208 H Calcium Phosphorus Magnesium Triglycerides Procalcitonin 03/08/19 03/08/19 03/08/19 05:40 05:40 05:40 WBC 20.7 H RBC 4.42 Hgb 10.6 L Hct 33 L MCV 75 L MCH 24 L MCHC 32 RDW 20 H Plt Count 135 L MPV 9.0 INR (Anticoag Therapy) 1.13 H APTT 24.8 L Sodium 139 Potassium 3.5 Chloride 102 Carbon Dioxide 31 Anion Gap 6 BUN 18 Creatinine 0.49 L Est GFR ( Amer) 148.2 Est GFR (Non-Af Amer) 122.5 BUN/Creatinine Ratio 36.7 H Glucose 188 H POC Glucose (mg/dL) Calcium 7.7 L Phosphorus 1.6 L Magnesium 2.3 Triglycerides 124 Procalcitonin 03/08/19 08:10 WBC RBC Hgb Hct MCV MCH MCHC RDW Plt Count MPV INR (Anticoag Therapy) APTT Sodium Potassium Chloride Carbon Dioxide Anion Gap BUN Creatinine Est GFR ( Amer) Est GFR (Non-Af Amer) BUN/Creatinine Ratio Glucose POC Glucose (mg/dL) 239 H Calcium Phosphorus Magnesium Triglycerides Procalcitonin Microbiology 03/04/19 21:40 Anaerobic Culture - Preliminary Wound 03/04/19 21:40 Skin and Soft Tissue MRSA/MSSA (PCR - Final Misc Source (See Comment) Mrsa Negative S.aureus Negative Gram Stain - Final Wound Culture - Final Escherichia Coli Proteus Mirabilis Enterococcus Faecalis Enterococcus Avium Anaerobic Gram Negative Bacill Imaging: CXR 03/05 - ett above heidi; RLL consolidation+, NGT+ CXR 03/06 - pulm congestion/edema cxr 03/07 - increased Right basal infiltrates/effusion+ cxr 03/08 - Right pleural effusion Assessment: 78y F w/pmhx of HTN, HLD, hypothyroidism, Afib and recently taken off Xarelto AC, 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 Found to have free air on CT abdomen with sigmoid thickening, colonic diverticulosis and mixed air/fluid in mesentery, Right lung mass/consolidation, thought to be consistent with suspected perforated diverticulitis, possible early abscess formation. Patient was taken to OR 03/04, found to have perforated diverticulitis, two tumours of jejunum, extensive peritonitis and intraabdominal abscess. She had a ex-lap, Dennis Procedure, small intestinal bypass (proximal jejunojejunostomy), as well as drainage of abscess. -Perforated Diverticulitus with Abdominal Abscess -Severe Sepsis -Jejunal Mass/small bowel mass -s/p ex-lap, Dennis Procedure, small intestinal bypass (proximal jejunojejunostomy), drainage of abscess - 03/04 -AFib -acute pulmonary congestion -Acute hypoxic respiratory failure -Acute Left femoral DVT Metastatic Lung Adenocarcinoma, to Bones and brain Plan: Neuro- -alert, follows commands -pain well controlled; change dilaudid 1mg IV q4h PRN -Delirium prec; avoid BDZ CVS- -BP stable, HR stable -Afib, Rate controlled now; cont Lopressor 5mg IV q6h, uptitrate as needed; switch to PO once able to take PO -off systemic AC for AFib -stress steroids, hydrocortisone 50mg iv q8h; will start po decadron once able to take PO intake -on TPN infusion -lasix 20mg IV daily, re-eval daily -TTE -normal LV function, no overt valvular dz -Maintain MAP>65 Resp- -on oximask now 2-3L; appears comfortable; no NIV required now -CXR 03/08 with right lung infiltrate and effusion; mild congestion -nontoxic appearing, no sputum; will cont diuretics, cont IV abx for abd coverage as well as lung coverage -incentive spirometry will help to recruit or flutter valve -hemoptysis has resolved; to have IVC filter placed today; then will retrial heparin sq tomorrow and if hemoptysis increases again, then will d/c, most likley she will not tolerate. overall at risk of PE/DVT given hypercoag state and now post op abd surgery/sepsis, limited mobility -Wean Fio2 to keep sat>92% -Bronchodilators PRN, Aspiration prec ID- afebrile. wbc [id number] -CT with perforation, suspected diverticulitis of sigmoid, abdominal abscess with peritonitis and new x2 jejunal masses -s/p ex-lap 03/04 with hartmans, drainage of abscess/washout, jejunojejunostomy -Peritoneal fluid/samples growing E.coli , Proteus, Enterococcus feacalis/avium and anaerobic gram neg; sensitivities noted -UTI with E.coli+, noted sensitivities -change cefepime to CTX 1gm daily UTI/Abd coverage (day#3) , no rash noted; cont Flagyl TID for anaerobic cov (day#5); add vancomycin for enterococcus coverage (day#1)(pharmacy dosing) -may need 7 to likely 10 days of IV abx given abd collection for appropriate duration GI- -NPO; not passing gas yet; BS hypoactive -maintian NGT to low intermittent; less NGT outputs noted -on TPN infusion now -Colostomy appears intact; lap site intact, cont dressing changes -cont pain control, antiemetics prn -IV abx continued -new jejunal massess found on ex-lap; new mets vs primary lesions; patho appears benign -GI prophylaxis - ppi Renal- -Cr okay; making urine, start lasix 20mg IV daily -replete Kphos 30mmol x1 today -strict I/O, replete to keep K>4, Mg>2 -anderson as indicated Heme- hg stable, no bleeding appreciated -plt stable -Heme/onc consult for metastatic lung adeno and now with jejunal masses+; patho appears benign? -New left Fem DVT; unable to get AC due to hemoptysis; for IR IVC filter today; may retry dvt proph tomorrow -patient is hypercoag from metastatic lung Ca and now post op abdominal surgery , severe sepsis -DVT proph with SCD/Lovenox Endo-Maintain BG<200, insulin protocol as needed. Cont Synthroid 25mcg IV daily. - stress steroids hydrocortisone 50mg iv q8h, once able to take PO switch to decadrone 4mg po AM, 2mg PO PM, as per heme rec Musculsk- pressure ulcer prophylaxis. oob to chair, pt/ot already started Wounds- laparotomy and Hartmanns, intact; cont wound care Nutrition- NPO; NGT to low inter suction; TPN ongoing DVT prophylaxis: SCD; off chemical GI prophylaxis: ppi Central Line: right fem 03/04; PICC 03/06 Arterial Line: left rad d/c 03/05 Anderson Cathetor: yes 03/04; consider d/c next 48 hours if stable/improving Disposition: Patient requires Critical Care/ICU for severe sepsis, perforated diverticulitus, s/p ex-lap, respiratory distress; possible downgrade later today to surgical same day Patient clinical status: guarded, critical Code Status: DNR/DNI Hawk Henriquez MD [employer] (Electronically Signed)
[2019-03-08] MEDS ORDERED: Vancomycin 1500 MG IV - x ONCE IVPB ONE ×2 (11:30)
[2019-03-08] MEDS ORDERED: fentaNYL* 50 MCG/ML 2 ML VIAL (100 MCG VIAL) ONE (11:43)
[2019-03-08] MEDS: TPN CENTRAL STANDARD BASE A CENTR SCH ×12 (17:44)
[2019-03-08] MEDS ORDERED: HYDROmorphone INJ1* 1 MG/ML SYRINGE IV SLOW PU ONE (20:40)
[2019-03-08] MEDS: cefTRIAXone(*) 1 GM in NS 0.9% 50 ML* 50 ML IVPB SCH (21:16)
[2019-03-09] MEDS: Insulin LISPRO* 1 UNITS UNIT SUBCUT SCH ×5 (01:44→18:12)
[2019-03-09] MEDS: Vancomycin(*) 1,000 MG in NS 0.9% 250 ML* 250 ML IVPB SCH ×2 (02:48→15:59)
[2019-03-09] MEDS ORDERED: LORazepam INJ* 2 MG/ML 1 ML VIAL IV PUSH ONE (02:55)
[2019-03-09] MEDS ORDERED: Alteplase (CATHFLO)* 2 MG VIAL IV ONE (04:59)
[2019-03-09] MEDS ORDERED: Alteplase (CATHFLO)* 2 MG/2 ML VIAL IV ONE ×2 (05:00→21:32)
[2019-03-09] MEDS: HYDROmorphone INJ1* 1 MG/ML SYRINGE IV SLOW PU PRN ×3 (05:11→12:32)
[2019-03-09] MEDS: Hydrocortisone INJ* 100 MG VIAL IV SCH ×2 (05:44→12:32)
[2019-03-09 08:36] LABS: Hematocrit 33 % (35-47); Hemoglobin 10.4 g/dL (12.0-16.0); Mean Corpuscular HGB Conc 31 g/dL (31-36); Mean Corpuscular Hemoglobin 24 pg (27-31); Mean Corpuscular Volume 75 fL (80-97); Mean Platelet Volume 8.9 fL (7.4-10.4); Platelet Count 107 10^3/uL (150-450); Red Blood Count 4.45 10^6 /uL (3.70-4.87); Red Cell Distribution Width 19 % (10-15); White Blood Count 19.3 10^3/uL (3.5-10.8)
[2019-03-09 08:40] LABS: BUN/Creatinine Ratio 45.5 (8-20); Calcium 7.6 mg/dL (8.6-10.3); EGFR African American 233.8 (>60); EGFR Non-African American 193.2 (>60); Phosphorus 1.4 mg/dL (2.5-5.0); Potassium 2.9 mmol/L (3.5-5.0)
[2019-03-09] MEDS: Levothyroxine INJ* 100 MCG/5 ML VIAL IV SCH (08:55)
[2019-03-09] MEDS: metroNIDAZOLE IV 500 MG/100ML* 500 MG/100 ML BAG IVPB SCH ×2 (09:57→19:05)
[2019-03-09] MEDS: Ondansetron INJ* 2 MG/ML VIAL IV PRN (10:06)
[2019-03-09] MEDS: Pantoprazole IV* 40 MG IV SCH (10:06)
--- NOTE | 2019-03-09 12:39 | PN ---
Progress Note - Progress Note Date of Service: 03/09/19 SOAP: Subjective: Seen yesterday and just now. Yesterday she was doing well with c/o gas pain in abd. Today abd pain is worse and RN called as Dilaudid not effective. No ostomy fct. Objective: Vital Signs Temp 98.4 F 03/09/19 11:25 Pulse 94 03/09/19 11:25 Resp 16 03/09/19 11:25 BP 118/63 03/09/19 11:25 Pulse Ox 99 03/09/19 11:25 Gen: awake; clutching abdomen. Abd: obese; incision clean; no granulation to wound; ostomy pink with edema, digital exam notable for hard stool soft; mild tenderness to mod palpation; not tender to percussion. Intake & Output 03/08/19 03/09/19 03/09/19 18:59 06:59 18:59 Intake Total 2619 654 Output Total 2940 1021 Balance -2940 1598 654 Intake: IV Fluids 608 NS (0.9%) 608 IVPB 628 NS (0.9%) 628 TPN/PPN 1353 654 Oral 30 Output: NG Tube Drainage Amount 700 Garner 2240 1021 Laboratory Results - last 24 hr 03/08/19 03/09/19 03/09/19 18:24 01:19 07:42 WBC RBC Hgb Hct MCV MCH MCHC RDW Plt Count MPV Sodium Potassium Chloride Carbon Dioxide Anion Gap BUN Creatinine Est GFR ( Amer) Est GFR (Non-Af Amer) BUN/Creatinine Ratio Glucose POC Glucose (mg/dL) 205 H 195 H 165 H Calcium Phosphorus Magnesium Triglycerides 03/09/19 03/09/19 03/09/19 08:14 08:14 12:03 WBC 19.3 H RBC 4.45 Hgb 10.4 L Hct 33 L MCV 75 L MCH 24 L MCHC 31 RDW 19 H Plt Count 107 L MPV 8.9 Sodium 140 Potassium 2.9 L Chloride 100 L Carbon Dioxide 35 H Anion Gap 5 BUN 15 Creatinine 0.33 L Est GFR ( Amer) 233.8 Est GFR (Non-Af Amer) 193.2 BUN/Creatinine Ratio 45.5 H Glucose 146 H POC Glucose (mg/dL) 161 H Calcium 7.6 L Phosphorus 1.4 L Magnesium 2.0 Triglycerides 93 Microbiology 03/04/19 21:40 Anaerobic Culture - Final Wound 03/04/19 21:40 Skin and Soft Tissue MRSA/MSSA (PCR - Final Misc Source (See Comment) Mrsa Negative S.aureus Negative Gram Stain - Final Wound Culture - Final Escherichia Coli Proteus Mirabilis Enterococcus Faecalis Enterococcus Avium Anaerobic Gram Negative Bacill Assessment: POD#3 s/p exlap/Dennis/SB bypass. Metastatic lung ca. Leukocytosis. Worse abd pain. Plan: Will get CT abd/pel; also Chest CT per Dr. Lombardi. Incr dhruvid. Will f/u.
[2019-03-09] MEDS ORDERED: Potassium Phosphate IV* 15 MMOLE in NS 0.9% 250 ML* 250 ML IVPB ONE (13:00)
[2019-03-09] MEDS ORDERED: Iohexol 300* (CONTRAST) 10 ML SDV IV ONE (13:52)
[2019-03-09] MEDS ORDERED: Alteplase (CATHFLO)* 2 MG VIAL ONE ×2 (14:00→15:00)
[2019-03-09] MEDS: Alteplase (CATHFLO)* 2 MG/2 ML VIAL IV ONE (14:55)
--- NOTE | 2019-03-09 15:17 | PN ---
Subjective Date of Service: 03/09/19 Interval History: Seen this afternoon on Short Stay. She was complaining of severe abdominal pain , nausea not relieved by Dilaudid. Case discussed briefly with Dr. Lara and decided to proceed with CT chest, abdomen and pelvis. Dilaudid increased. Patient was re-evaluated post CT scan, (report still pending), however the patient report the pain almost resolved. Nausea resolved. She is complaining of right shoulder pain, mild but otherwise no acute distress. She is afebrile and BP normal Past Medical History: Unchanged from Admission Objective Active Medications: Dextrose (Dextrose 50% Vial 50 Ml*) 25 ml IV PUSH .FOR FS < 60 - SS PRN PRN Reason: FS < 60 Heparin Sodium (Porcine) (Heparin Flush Picc/Ml/Cvc(*)) 1 - 3 ml FLUSH 0600, 1800 [facility]; Protocol Last Admin: 03/09/19 08:54 Dose: 2 ml Hydrocortisone Sodium Succinate (Solu-Cortef*) 50 mg IV Q8H DAVID Last Admin: 03/09/19 12:32 Dose: 50 mg Hydromorphone HCl (Dilaudid Inj1s*) 1 mg IV SLOW PU Q4H PRN PRN Reason: PAIN - MODERATE Last Admin: 03/09/19 12:32 Dose: 1 mg Metronidazole/Sodium Chloride (Flagyl 500 Mg Ivpb*) 500 mg in 100 mls @ 100 mls /hr IVPB Q8H [facility] Last Admin: 03/09/19 09:57 Dose: 100 mls/hr Dextrose 500 ml/ Amino Acids 850 ml/ Sterile Water 150 ml/Fat Emulsion Intravenous 250 ml/ Sodium Chloride 100 meq/Potassium Chloride 50 meq/Potassium Phosphate 15 mmole/Calcium Gluconate 15 meq/Magnesium Sulfate 10 meq/ Multivitamins 10 ml/ Trace Metals 1 ml/ Nutrition ( Parenteral) 1,850.721 mls @ 77.113 mls/hr CENTR 1700 [facility]; Protocol Stop: 03/09/19 16:59 Last Admin: 03/08/19 17:44 Dose: 77.113 mls/hr Ceftriaxone Sodium 1 gm/ (Sodium Chloride) 50 mls @ 100 mls/hr IVPB Q24H [facility] Last Admin: 03/08/19 21:16 Dose: 100 mls/hr Vancomycin HCl 1,000 mg/ (Sodium Chloride) 250 mls @ 166.667 mls/hr IVPB Q12H [facility]; Protocol Last Admin: 03/09/19 02:48 Dose: 166.667 mls/hr Potassium Phosphate 15 mmole/ (Sodium Chloride) 255 mls @ 42 mls/hr IVPB ONCE ONE Stop: 03/09/19 19:04 Dextrose 500 ml/ Amino Acids 850 ml/ Sterile Water 150 ml/Fat Emulsion Intravenous 250 ml/ Sodium Chloride 100 meq/Potassium Chloride 75 meq/Potassium Phosphate 15 mmole/Calcium Gluconate 15 meq/Magnesium Sulfate 10 meq/ Multivitamins 10 ml/ Trace Metals 1 ml/ Nutrition ( Parenteral) 1,863.221 mls @ 77.634 mls/hr CENTR 1700 [facility]; Protocol Insulin Human Lispro (Humalog*) 0 units SUBCUT Q6HR [facility]; Protocol Last Admin: 03/09/19 12:42 Dose: 3 units Levothyroxine Sodium (Synthroid Inj*) 25 mcg IV 0600 [facility] Last Admin: 03/09/19 08:55 Dose: 25 mcg Metoprolol Tartrate (Lopressor Iv*) 5 mg IV Q6H PRN PRN Reason: for HR>90 or SBP>140 Last Admin: 03/07/19 19:37 Dose: 5 mg Miscellaneous (Ativan Pyxis Nunez) 1 ea N/A .ATIVAN IV NUNEZ PRN PRN Reason: PYXIS NUNEZ Ondansetron HCl (Zofran Inj*) 4 mg IV Q4H PRN PRN Reason: NAUSEA/VOMITING Last Admin: 03/09/19 10:06 Dose: 4 mg Pantoprazole Sodium (Protonix Iv*) 40 mg IV DAILY [facility] Last Admin: 03/09/19 10:06 Dose: 40 mg Pharmacy Consult (Vancomycin Per Pharmacy*) 1 note FOLLOW UP .VANC PER PHARMACY [facility]; Protocol Pharmacy Profile Note (Vancomycin Trough Check) 1 note FOLLOW UP 1415 ONE Stop: 03/10/19 14:16 Vital Signs - 8 hr 03/09/19 03/09/19 03/09/19 07:31 08:00 08:01 Temperature 97.6 F Pulse Rate 81 96 Respiratory 16 25 Rate Blood Pressure 108/71 (mmHg) O2 Sat by Pulse 97 95 Oximetry 03/09/19 03/09/19 03/09/19 09:00 09:01 09:04 Temperature Pulse Rate 92 104 Respiratory 18 17 15 Rate Blood Pressure 132/90 (mmHg) O2 Sat by Pulse 96 96 Oximetry 03/09/19 03/09/19 03/09/19 09:29 10:23 11:25 Temperature 97.5 F 98.4 F Pulse Rate 105 94 Respiratory 20 20 16 Rate Blood Pressure 136/73 118/63 (mmHg) O2 Sat by Pulse 97 99 Oximetry 03/09/19 03/09/19 12:32 13:50 Temperature Pulse Rate Respiratory 18 16 Rate Blood Pressure (mmHg) O2 Sat by Pulse Oximetry Oxygen Devices in Use Now: Simple Face Mask Appearance: Obese, in bed resting. NGT in place. Eyes: No Scleral Icterus, - - EOMI Ears/Nose/Mouth/Throat: Mucous Membranes Moist, - - NGT in place to LIS Neck: NL Appearance and Movements; NL JVP, Trachea Midline Respiratory: - - distant breath sounds, diminished at bases. no rhonchi or wheezing appreciated Cardiovascular: - - Irregular, but rate controlled Abdominal: - - incisional dressing in place and intact. Colostomy bag in place. No output appreciated Neurological: Alert and Oriented x 3 Result Diagrams: 03/09/19 08:14 03/09/19 08:14 Microbiology and Other Data: Microbiology 03/04/19 21:40 Anaerobic Culture - Final Wound 03/04/19 21:40 Skin and Soft Tissue MRSA/MSSA (PCR - Final Misc Source (See Comment) Mrsa Negative S.aureus Negative Gram Stain - Final Wound Culture - Final Escherichia Coli Proteus Mirabilis Enterococcus Faecalis Enterococcus Avium Anaerobic Gram Negative Bacill 03/04/19 00:47 Urine Culture - Final Urine Escherichia Coli 03/04/19 22:43 Nasal Screen MRSA (PCR) - Final Nasal Mrsa Not Detected Assess/Plan/Problems-Billing Assessment: 78 y/o female admitted on 03/03/19 for abdominal pain found to have perforated diverticulitis and peritonitis, Underwent Exp/Lap with s/p exlap/Dennis/SB bypass on 03/04/19 currently on TPN and broad spectrum antibiotics was found to have RLL pneumoniae, left DVT s/p IVC filter off anticoagulation due to hemoptysis - Patient Problems (1) Peritonitis and retroperitoneal infections Current Visit: Yes Status: Acute Code(s): K65.9 - PERITONITIS, UNSPECIFIED SNOMED Code(s): 48546747 Comment: - secondary to perforated diverticulitis - s/p s/p exlap/Dennis/SB bypass on 03/03/19 - Continue triple antibiotic coverage Rocephin Day #4; Flagyl Day # 5; Vanco Day #2 - Surgery on board. Will continue TPN and Diet as per Surgery recommendations - Pain control with dilaudid. STAT CT abdomen/Pelvis ordered due to her acute pain. Result pending. (2) Perforated diverticulum of large intestine Current Visit: Yes Status: Acute Code(s): K57.20 - DVTRCLI OF LG INT W PERFORATION AND ABSCESS W/O BLEEDING SNOMED Code(s): 622446803 Comment: - secondary to perforated diverticulitis - s/p s/p exlap/Dennis/SB bypass on 03/03/19 - Continue triple antibiotic coverage Rocephin Day #4; Flagyl Day # 5; Vanco Day #2 - Surgery on board. Will continue TPN and Diet as per Surgery recommendations - Pain control with dilaudid. STAT CT abdomen/Pelvis ordered due to her acute pain. Result pending. - Biopsy of bowel did not show any evidence of neoplasm (3) Adenocarcinoma of lung, stage 4 Current Visit: Yes Status: Acute Code(s): C34.90 - MALIGNANT NEOPLASM OF UNSP PART OF UNSP BRONCHUS OR LUNG SNOMED Code(s): 506153356 Comment: - Stage 4 adenocarcinoma and mets to bone and brain - DNR/DNI - Continue hydrocortisone 50 mg IV Q8hrs and resume po decadron once can take PO (4) Dvt femoral (deep venous thrombosis) Current Visit: Yes Status: Acute Code(s): I82.419 - ACUTE EMBOLISM AND THROMBOSIS OF UNSPECIFIED FEMORAL VEIN SNOMED Code(s): 363549741 Comment: - Off anticoagulation due to hemoptysis while in ICU - S/p IVC filter - Will rechallenge with SQ heparin for DVT prophylaxis, however if hemoptysis re -occur than will deem patient to have absolute contraindication for anticoagulations (5) RLL pneumonia Current Visit: Yes Status: Acute Code(s): J18.1 - LOBAR PNEUMONIA, UNSPECIFIED ORGANISM SNOMED Code(s): 835751858 Comment: - Continue triple antibiotic coverage Rocephin Day #4; Flagyl Day # 5; Vanco Day #2 - Follow up CT chest ordered today (6) Atrial fibrillation Current Visit: No Status: Acute Code(s): I48.91 - UNSPECIFIED ATRIAL FIBRILLATION SNOMED Code(s): 75922515 Comment: - On lopressor 5 mg IV Q6hrs. Change to PO lopressor once able to take PO - Will rechallenge with SQ heparin for DVT prophylaxis, however if hemoptysis re -occur than will deem patient to have absolute contraindication for anticoagulations (7) HTN (hypertension) Current Visit: No Status: Acute Code(s): I10 - ESSENTIAL (PRIMARY) HYPERTENSION SNOMED Code(s): 92205566 Comment: - On lopressor 5 mg IV Q6hrs. Change to PO lopressor once able to take PO (8) Hypothyroid Current Visit: No Status: Acute Code(s): E03.9 - HYPOTHYROIDISM, UNSPECIFIED SNOMED Code(s): 81341777 Comment: Continue usual dose levothyroxine. TSH wnl 05/05/15. (9) DVT prophylaxis Current Visit: Yes Status: Acute Code(s): Z29.9 - ENCOUNTER FOR PROPHYLACTIC MEASURES, UNSPECIFIED SNOMED Code(s): 295189162 Comment: - Will rechallenge with SQ heparin for DVT prophylaxis, however if hemoptysis re -occur than will deem patient to have absolute contraindication for anticoagulations
[2019-03-09] MEDS ORDERED: NS 0.9% 250 ML* 250 ML ONE (15:41)
[2019-03-09] MEDS: HYDROmorphone INJ1* 1 MG/ML SYRINGE IV PRN ×2 (16:50→23:47)
[2019-03-09] MEDS ORDERED: TPN* 24 HR with Dextrose 50% Water* 500 ML, Amino Acid Infusion 10%* 850 ML, Sterile Wa... CENTR SCH ×12 (17:00)
--- NOTE | 2019-03-09 17:51 | PN ---
Progress Note - Progress Note Date of Service: 03/09/19 Note: Her pain is better. Sitting up in bed. C/o right shoulder pain at present. Abd pain is "not too bad". CT images reviewed by me and discussed with radiologist (Domenico). There is no abscess or leak. There is a fluid collection adjacent to the J-J but this could be postop change at 5 days. Discussed findings with patient. At present, no additional intervention. Cont Ngt until colostomy function. Cont abx. TPN. Appreciate Hospitalist aleshia/dori CLAROS covering me this weekend.
[2019-03-09] MEDS ORDERED: Morphine 10 MG/ML VIAL (1 ml) IM ONE (21:43)
[2019-03-09] MEDS ORDERED: NS 0.9% 50 ML* 50 ML ONE (23:58)
[2019-03-10] MEDS: Hydrocortisone INJ* 100 MG VIAL IV SCH ×3 (00:05→17:49)
[2019-03-10] MEDS: cefTRIAXone(*) 1 GM in NS 0.9% 50 ML* 50 ML IVPB SCH ×2 (00:18→22:13)
[2019-03-10] MEDS: Insulin LISPRO* 1 UNITS UNIT SUBCUT SCH ×4 (00:27→17:39)
[2019-03-10] MEDS ORDERED: LORazepam INJ* 2 MG/ML 1 ML VIAL IV PUSH ONE (02:16)
[2019-03-10] MEDS: Vancomycin(*) 1,000 MG in NS 0.9% 250 ML* 250 ML IVPB SCH ×3 (02:47→22:17)
[2019-03-10] MEDS: metroNIDAZOLE IV 500 MG/100ML* 500 MG/100 ML BAG IVPB SCH ×4 (03:00→17:49)
[2019-03-10] MEDS: HYDROmorphone INJ1* 1 MG/ML SYRINGE IV PRN ×4 (03:28→22:07)
[2019-03-10 06:09] LABS: Hematocrit 31 % (35-47); Hemoglobin 9.8 g/dL (12.0-16.0); Mean Corpuscular HGB Conc 32 g/dL (31-36); Mean Corpuscular Hemoglobin 24 pg (27-31); Mean Corpuscular Volume 75 fL (80-97); Mean Platelet Volume 9.1 fL (7.4-10.4); Platelet Count 106 10^3/uL (150-450); Red Blood Count 4.13 10^6 /uL (3.70-4.87); Red Cell Distribution Width 20 % (10-15); White Blood Count 20.4 10^3/uL (3.5-10.8)
[2019-03-10 06:28] LABS: Albumin/Globulin Ratio 0.8 (1-3); BUN/Creatinine Ratio 40.5 (8-20); Calcium 7.1 mg/dL (8.6-10.3); EGFR African American 204.9 (>60); EGFR Non-African American 169.3 (>60); Globulin 2.5 g/dL (2-4); Magnesium 1.8 mg/dL (1.9-2.7); Phosphorus 1.8 mg/dL (2.5-5.0); Potassium 3.1 mmol/L (3.5-5.0); Total Bilirubin 0.4 mg/dL (0.2-1.0); Total Protein 4.5 g/dL (6.4-8.9)
[2019-03-10 07:22] LABS: ABS Eosinophils 0.7 10^3/ul (0-0.6); ABS Lymphocytes 0.8 10^3/ul (1.0-4.8); ABS Monocytes 0.9 10^3/ul (0-0.8); Eosinophil % 3.2 %; Lymphocyte % 3.9 %
[2019-03-10] MEDS: Levothyroxine INJ* 100 MCG/5 ML VIAL IV SCH ×2 (07:24→10:01)
[2019-03-10] MEDS: Pantoprazole IV* 40 MG IV SCH ×2 (07:25→09:35)
--- NOTE | 2019-03-10 09:46 | PN ---
Progress Note - Progress Note Date of Service: 03/10/19 SOAP: Subjective: []She continues to be in pain. Shoulder pain and diffuse abdominal pain. Wants to go home. Shoulder pain is similar to what she has had for some time. Dextrose (Dextrose 50% Vial 50 Ml*) 25 ml IV PUSH .FOR FS < 60 - SS PRN PRN Reason: FS < 60 Heparin Sodium (Porcine) (Heparin Flush Picc/Ml/Cvc(*)) 1 - 3 ml FLUSH 0600, 1800 [facility]; Protocol Last Admin: 03/10/19 05:56 Dose: 3 ml Hydrocortisone Sodium Succinate (Solu-Cortef*) 50 mg IV Q8H [facility] Last Admin: 03/10/19 05:56 Dose: Not Given Hydromorphone HCl (Dilaudid Inj1s*) 1 mg IV Q3H PRN PRN Reason: PAIN - MODERATE Last Admin: 03/10/19 09:35 Dose: 1 mg Metronidazole/Sodium Chloride (Flagyl 500 Mg Ivpb*) 500 mg in 100 mls @ 100 mls /hr IVPB Q8H [facility] Last Admin: 03/10/19 09:35 Dose: 100 mls/hr Ceftriaxone Sodium 1 gm/ (Sodium Chloride) 50 mls @ 100 mls/hr IVPB Q24H [facility] Last Admin: 03/10/19 00:18 Dose: 100 mls/hr Vancomycin HCl 1,000 mg/ (Sodium Chloride) 250 mls @ 166.667 mls/hr IVPB Q12H [facility]; Protocol Last Admin: 03/10/19 02:47 Dose: 166.667 mls/hr Dextrose 500 ml/ Amino Acids 850 ml/ Sterile Water 150 ml/Fat Emulsion Intravenous 250 ml/ Sodium Chloride 100 meq/Potassium Chloride 75 meq/Potassium Phosphate 15 mmole/Calcium Gluconate 15 meq/Magnesium Sulfate 10 meq/ Multivitamins 10 ml/ Trace Metals 1 ml/ Nutrition ( Parenteral) 1,863.221 mls @ 77.634 mls/hr [facility] 1700 [facility]; Protocol Last Admin: 03/09/19 17:52 Dose: 77.634 mls/hr Insulin Human Lispro (Humalog*) 0 units SUBCUT Q6HR [facility]; Protocol Last Admin: 03/10/19 06:18 Dose: 2 units Levothyroxine Sodium (Synthroid Inj*) 25 mcg IV 0600 [facility] Last Admin: 03/09/19 08:55 Dose: 25 mcg Metoprolol Tartrate (Lopressor Iv*) 5 mg IV Q6H PRN PRN Reason: for HR>90 or SBP>140 Last Admin: 03/07/19 19:37 Dose: 5 mg Miscellaneous (Ativan Pyxis Nunez) 1 ea N/A .ATIVAN IV NUNEZ PRN PRN Reason: PYXIS NUNEZ Ondansetron HCl (Zofran Inj*) 4 mg IV Q4H PRN PRN Reason: NAUSEA/VOMITING Last Admin: 03/09/19 10:06 Dose: 4 mg Pantoprazole Sodium (Protonix Iv*) 40 mg IV DAILY [facility] Last Admin: 03/10/19 09:35 Dose: 40 mg Pharmacy Consult (Vancomycin Per Pharmacy*) 1 note FOLLOW UP .VANC PER PHARMACY [facility]; Protocol Pharmacy Profile Note (Vancomycin Trough Check) 1 note FOLLOW UP 1415 ONE Stop: 03/10/19 14:16 Objective: [] Vital Signs Temp Pulse Resp BP Pulse Ox 97.7 F 123 18 112/60 100 03/10/19 07:34 03/10/19 07:34 03/10/19 09:35 03/10/19 07:34 03/10/19 07:34 Gen: No acute distress. HEENT: pale, OM dry, NTG ABD: There are some BS and has stool in colostomy bag Ext +2 CAREY Neuro: Responsive to questions. WBC 20, Hgb 9.9, Plts 106 [address] - personally reviewed. Thee medistinal mass is increased from 3.7 x 4.1 cm on 02/13 to 5.1 x 4.6 cm now. pulmonary nodule increases, mesenteric LAD now seen. Bone disease not seen as well as on PET. no iiver lesions Assessment: []78 year old with stage IV lung cancer, on pain medication and steroids who presents with perforated diverticulitis. 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 She is now recovering from surgery, has BM. Primary complaint is sever pain. She has growth of tumor on CT scan indicating poor prognosis disease, working to improve QOL. Plan: []1. GI. - pull NGT and advance diet 2. Pain - long acting narcotics when eating, Morphine ER 15 mg po bid. - Consultation XRT on Tuesday, possible palliative XRT to shoulder R arm x 1 day dose. 2. TECHNICAL FELLOW disease. - Start tapering steroids 3.FEN. Replete K and Mg 4. Will need famly meeting tomorrow or Tuesday discuss goals and prognosis. 5. Start getting out of bed.
[2019-03-10] MEDS ORDERED: Magnesium Sulfate IV* 3 GM in NS 0.9% 100 ML* 100 ML IVPB ONE (09:49)
[2019-03-10] MEDS ORDERED: Hydrocortisone INJ* 100 MG VIAL IV SCH (10:00)
[2019-03-10] MEDS ORDERED: NS 0.9% 1000 ML** 1,000 ML IV SCH (10:00)
[2019-03-10] MEDS ORDERED: KCL 10 MEQ/50 ML IVPREMIX* 10 MEQ/50 ML BAG IV SCH (10:00)
--- NOTE | 2019-03-10 10:04 | PN ---
Progress Note - Progress Note Date of Service: 03/10/19 SOAP: Subjective: Pt seen and examined. Wants to go home. Abdo pain, R shoulder pain. thirsty Objective: Temp Pulse Resp BP Pulse Ox 97.7 F 123 18 112/60 100 03/10/19 07:34 03/10/19 07:34 03/10/19 09:35 03/10/19 07:34 03/10/19 07:34 Intake & Output 03/09/19 03/10/19 03/10/19 22:59 06:59 14:59 Intake Total 146 575 Output Total 1450 Balance 146 -875 a and o x3 abdo: soft/ ND/ NT packing in place. no redness colostomy with stool output ext wnl labs noted CT 03/09 reviewed Assessment: POD 6 Dennis's , elevated wbc (likely due to steroid); minimal abdo pain; shoulder pain 2ary to metastatic disease Plan: d/c NGT d/c picc ( as per hosp) so okay to d/c TPN sips of water OOB
--- NOTE | 2019-03-10 10:41 | PN ---
Subjective Date of Service: 03/10/19 Interval History: patient seen this morning, getting frustrated wanting to go home, want the NGT out and complaining of her right shoulder pain. I was called shortly after by the patient nurse stating the Picc line is infiltrated. No fever and WBC remain elevated Past Medical History: Unchanged from Admission Objective Active Medications: Dextrose (Dextrose 50% Vial 50 Ml*) 25 ml IV PUSH .FOR FS < 60 - SS PRN PRN Reason: FS < 60 Heparin Sodium (Porcine) (Heparin Flush Picc/Ml/Cvc(*)) 1 - 3 ml FLUSH 0600, 1800 [facility]; Protocol Last Admin: 03/10/19 05:56 Dose: 3 ml Hydrocortisone Sodium Succinate (Solu-Cortef*) 50 mg IV Q12H [facility] Hydromorphone HCl (Dilaudid Inj1s*) 1 mg IV Q3H PRN PRN Reason: PAIN - MODERATE Last Admin: 03/10/19 09:35 Dose: 1 mg Metronidazole/Sodium Chloride (Flagyl 500 Mg Ivpb*) 500 mg in 100 mls @ 100 mls /hr IVPB Q8H [facility] Last Admin: 03/10/19 09:35 Dose: 100 mls/hr Ceftriaxone Sodium 1 gm/ (Sodium Chloride) 50 mls @ 100 mls/hr IVPB Q24H [facility] Last Admin: 03/10/19 00:18 Dose: 100 mls/hr Vancomycin HCl 1,000 mg/ (Sodium Chloride) 250 mls @ 166.667 mls/hr IVPB Q12H [facility]; Protocol Last Admin: 03/10/19 02:47 Dose: 166.667 mls/hr Dextrose 500 ml/ Amino Acids 850 ml/ Sterile Water 150 ml/Fat Emulsion Intravenous 250 ml/ Sodium Chloride 100 meq/Potassium Chloride 75 meq/Potassium Phosphate 15 mmole/Calcium Gluconate 15 meq/Magnesium Sulfate 10 meq/ Multivitamins 10 ml/ Trace Metals 1 ml/ Nutrition ( Parenteral) 1,863.221 mls @ 77.634 mls/hr CENTR 1700 [facility]; Protocol Last Admin: 03/09/19 17:52 Dose: 77.634 mls/hr Sodium Chloride (Ns 0.9% 1000 Ml) 1,000 mls @ 1,000 mls/hr IV PER RATE [facility] Stop: 03/10/19 10:59 Potassium Chloride (Potassium Chloride 10 Meq/50 Ml Ivpremix*) 10 meq in 50 mls @ 50 mls/hr IV Q1H [facility] Stop: 03/10/19 13:59 Magnesium Sulfate 3 gm/ Sodium (Chloride) 106 mls @ 53 mls/hr IVPB ONCE ONE Stop: 03/10/19 11:48 Insulin Human Lispro (Humalog*) 0 units SUBCUT Q6HR [facility]; Protocol Last Admin: 03/10/19 06:18 Dose: 2 units Levothyroxine Sodium (Synthroid Inj*) 25 mcg IV 0600 [facility] Last Admin: 03/10/19 10:01 Dose: 25 mcg Metoprolol Tartrate (Lopressor Iv*) 5 mg IV Q6H PRN PRN Reason: for HR>90 or SBP>140 Last Admin: 03/07/19 19:37 Dose: 5 mg Miscellaneous (Ativan Pyxis Nunez) 1 ea N/A .ATIVAN IV NUNEZ PRN PRN Reason: PYXIS NUNEZ Ondansetron HCl (Zofran Inj*) 4 mg IV Q4H PRN PRN Reason: NAUSEA/VOMITING Last Admin: 03/09/19 10:06 Dose: 4 mg Pantoprazole Sodium (Protonix Iv*) 40 mg IV DAILY [facility] Last Admin: 03/10/19 09:35 Dose: 40 mg Pharmacy Consult (Vancomycin Per Pharmacy*) 1 note FOLLOW UP .VANC PER PHARMACY [facility]; Protocol Pharmacy Profile Note (Vancomycin Trough Check) 1 note FOLLOW UP 1415 ONE Stop: 03/10/19 14:16 Vital Signs - 8 hr 03/10/19 03/10/19 03/10/19 02:38 03:28 03:33 Temperature Pulse Rate Respiratory 19 17 18 Rate Blood Pressure (mmHg) O2 Sat by Pulse Oximetry 03/10/19 03/10/19 03/10/19 03:46 05:12 07:34 Temperature 97.3 F 97.7 F Pulse Rate 114 123 Respiratory 18 19 20 Rate Blood Pressure 143/75 112/60 (mmHg) O2 Sat by Pulse 100 100 Oximetry 03/10/19 09:35 Temperature Pulse Rate Respiratory 18 Rate Blood Pressure (mmHg) O2 Sat by Pulse Oximetry Oxygen Devices in Use Now: Simple Face Mask Appearance: awake, alert. no distress, frustrated. NGT was still in . Eyes: - - EOMI Ears/Nose/Mouth/Throat: Mucous Membranes Moist, - - NGT in place Neck: Trachea Midline Respiratory: - - diminished BS limited to anterior auscultations Abdominal: - - Soft colostomy bag in place Extremities: - - edema Neurological: Alert and Oriented x 3 Result Diagrams: 03/10/19 05:49 03/10/19 05:49 Microbiology and Other Data: Microbiology 03/04/19 21:40 Anaerobic Culture - Final Wound 03/04/19 21:40 Skin and Soft Tissue MRSA/MSSA (PCR - Final Misc Source (See Comment) Mrsa Negative S.aureus Negative Gram Stain - Final Wound Culture - Final Escherichia Coli Proteus Mirabilis Enterococcus Faecalis Enterococcus Avium Anaerobic Gram Negative Bacill 03/04/19 00:47 Urine Culture - Final Urine Escherichia Coli 03/04/19 22:43 Nasal Screen MRSA (PCR) - Final Nasal Mrsa Not Detected Assess/Plan/Problems-Billing Assessment: 78 y/o female admitted on 03/03/19 for abdominal pain found to have perforated diverticulitis and peritonitis, Underwent Exp/Lap with s/p exlap/Dennis/SB bypass on 03/04/19 currently on TPN and broad spectrum antibiotics was found to have RLL pneumoniae, left DVT s/p IVC filter off anticoagulation due to hemoptysis - Patient Problems (1) Peritonitis and retroperitoneal infections Current Visit: Yes Status: Acute Code(s): K65.9 - PERITONITIS, UNSPECIFIED SNOMED Code(s): 23870689 Comment: - secondary to perforated diverticulitis - s/p s/p exlap/Dennis/SB bypass on 03/03/19 - Continue triple antibiotic coverage Rocephin Day #5; Flagyl Day # 6; Vanco Day #3 - Surgery on board. Will discontinue TPN today as her picc line is infiltrated , will defer and Diet as per Surgery recommendations. If she requires TPN will request new Picc line on tuesday and resume TPN on tuesday. - Pain control with dilaudid. Her CT abdomen/Pelvis/Chest from 03/09/19 reveals no evidence of collection or abscess. (2) Perforated diverticulum of large intestine Current Visit: Yes Status: Acute Code(s): K57.20 - DVTRCLI OF LG INT W PERFORATION AND ABSCESS W/O BLEEDING SNOMED Code(s): 164460544 Comment: - secondary to perforated diverticulitis - s/p s/p exlap/Dennis/SB bypass on 03/03/19 - Continue triple antibiotic coverage Rocephin Day #5; Flagyl Day # 6; Vanco Day #3 - Surgery on board. Will discontinue TPN today as her picc line is infiltrated , will defer and Diet as per Surgery recommendations. If she requires TPN will request new Picc line on tuesday and resume TPN on tuesday. - Pain control with dilaudid. Her CT abdomen/Pelvis/Chest from 03/09/19 reveals no evidence of collection or abscess. - Biopsy of bowel did not show any evidence of neoplasm (3) Adenocarcinoma of lung, stage 4 Current Visit: Yes Status: Acute Code(s): C34.90 - MALIGNANT NEOPLASM OF UNSP PART OF UNSP BRONCHUS OR LUNG SNOMED Code(s): 527403808 Comment: - Stage 4 adenocarcinoma and mets to bone and brain - DNR/DNI - Continue hydrocortisone 50 mg IV Q12hrs and resume po decadron once can take PO (4) Dvt femoral (deep venous thrombosis) Current Visit: Yes Status: Acute Code(s): I82.419 - ACUTE EMBOLISM AND THROMBOSIS OF UNSPECIFIED FEMORAL VEIN SNOMED Code(s): 940380343 Comment: - Off anticoagulation due to hemoptysis while in ICU - S/p IVC filter - Will rechallenge with SQ heparin for DVT prophylaxis today 03/10/19, however if hemoptysis re-occur than will deem patient to have absolute contraindication for anticoagulations (5) RLL pneumonia Current Visit: Yes Status: Acute Code(s): J18.1 - LOBAR PNEUMONIA, UNSPECIFIED ORGANISM SNOMED Code(s): 630103096 Comment: - Continue triple antibiotic coverage Rocephin Day #5; Flagyl Day # 5; Vanco Day #3 - Follow up CT chest ordered today (6) Atrial fibrillation Current Visit: No Status: Acute Code(s): I48.91 - UNSPECIFIED ATRIAL FIBRILLATION SNOMED Code(s): 41591691 Comment: - On lopressor 5 mg IV Q6hrs. Change to PO lopressor once able to take PO - Will rechallenge with SQ heparin today 03/10/19 for DVT prophylaxis, however if hemoptysis re-occur than will deem patient to have absolute contraindication for anticoagulations (7) HTN (hypertension) Current Visit: No Status: Acute Code(s): I10 - ESSENTIAL (PRIMARY) HYPERTENSION SNOMED Code(s): 40866445 Comment: - On lopressor 5 mg IV Q6hrs. Change to PO lopressor once able to take PO (8) Hypothyroid Current Visit: No Status: Acute Code(s): E03.9 - HYPOTHYROIDISM, UNSPECIFIED SNOMED Code(s): 45463940 Comment: Continue usual dose levothyroxine. TSH wnl 05/05/15. (9) DVT prophylaxis Current Visit: Yes Status: Acute Code(s): Z29.9 - ENCOUNTER FOR PROPHYLACTIC MEASURES, UNSPECIFIED SNOMED Code(s): 892077576 Comment: - Will rechallenge with SQ heparin today 03/10/19 for DVT prophylaxis, however if hemoptysis re-occur than will deem patient to have absolute contraindication for anticoagulations
[2019-03-10] MEDS ORDERED: Potassium Phosphate IV* 15 MMOLE in NS 0.9% 250 ML* 250 ML IVPB ONE (13:00)
[2019-03-10] MEDS ORDERED: Morphine 10 MG/ML VIAL (1 ml) IM ONE ×2 (13:28→15:38)
[2019-03-10] MEDS ORDERED: Vancomycin Trough Check NOTE FOLLOW UP ONE (14:15)
--- NOTE | 2019-03-10 15:45 | PN ---
Hospitalist Progress Note Date of Service: 03/10/19 HOSPITALIST ADDENDUM Called by RN because patient is c/o right shoulder pain 04/05. She has known metastatic lung CA, with mets to right shoulder. No IV access at this time. Will give Morphine IM, as she seems to have responded to it last night. As per RN, Surgeon will come to place central line today.
[2019-03-10] MEDS: Heparin VIAL(*) 5000 UNITS/ML VIAL (FIVE THOUSAND) SUBCUT SCH ×3 (16:34→16:43)
[2019-03-10] MEDS ORDERED: KCL 20 MEQ/100 ML IVPREMIX* 20 MEQ/100 ML BAG IV SCH (18:00)
[2019-03-11] MEDS: KCL 20 MEQ/100 ML IVPREMIX* 20 MEQ/100 ML BAG IV SCH ×2 (00:32→02:56)
[2019-03-11] MEDS: Insulin LISPRO* 1 UNITS UNIT SUBCUT SCH ×6 (00:39→21:57)
[2019-03-11] MEDS: metroNIDAZOLE IV 500 MG/100ML* 500 MG/100 ML BAG IVPB SCH ×4 (00:44→23:59)
[2019-03-11] MEDS: HYDROmorphone INJ1* 1 MG/ML SYRINGE IV PRN ×7 (01:24→23:56)
[2019-03-11] MEDS: Hydrocortisone INJ* 100 MG VIAL IV SCH (04:50)
[2019-03-11] MEDS: Heparin VIAL(*) 5000 UNITS/ML VIAL (FIVE THOUSAND) SUBCUT SCH ×2 (04:57→16:09)
[2019-03-11] MEDS: Vancomycin(*) 1,000 MG in NS 0.9% 250 ML* 250 ML IVPB SCH ×2 (06:30→17:48)
[2019-03-11 07:04] LABS: Hematocrit 28 % (35-47); Mean Corpuscular HGB Conc 32 g/dL (31-36); Mean Corpuscular Hemoglobin 24 pg (27-31); Mean Corpuscular Volume 75 fL (80-97); Mean Platelet Volume 9.5 fL (7.4-10.4); Platelet Count 105 10^3/uL (150-450); Red Blood Count 3.76 10^6 /uL (3.70-4.87); Red Cell Distribution Width 19 % (10-15); White Blood Count 19.2 10^3/uL (3.5-10.8)
[2019-03-11] MEDS: Levothyroxine INJ* 100 MCG/5 ML VIAL IV SCH (07:10)
[2019-03-11 07:17] LABS: Albumin/Globulin Ratio 0.8 (1-3); BUN/Creatinine Ratio 48.6 (8-20); Calcium 6.9 mg/dL (8.6-10.3); EGFR African American 204.9 (>60); EGFR Non-African American 169.3 (>60); Globulin 2.4 g/dL (2-4); Magnesium 2.1 mg/dL (1.9-2.7); Phosphorus 1.8 mg/dL (2.5-5.0); Potassium 3.8 mmol/L (3.5-5.0); Total Bilirubin 0.4 mg/dL (0.2-1.0); Total Protein 4.4 g/dL (6.4-8.9)
[2019-03-11] MEDS ORDERED: Potassium Phosphate IV* 15 MMOLE in NS 0.9% 250 ML* 250 ML IVPB ONE (08:29)
[2019-03-11] MEDS ORDERED: fentaNYL PATCH 37.5 MCG/HR(NF) PATCH.TD72 TRANSDERM SCH (09:00)
[2019-03-11] MEDS: Pantoprazole IV* 40 MG IV SCH (09:03)
[2019-03-11] MEDS: fentaNYL PATCH 25 MCG/HR TRANSDERM SCH (09:20)
[2019-03-11] MEDS: fentaNYL PATCH 12 MCG/HR TRANSDERM SCH (09:20)
[2019-03-11] MEDS: Lidocaine PATCH 5%* 1 PATCH TRANSDERM SCH (09:39)
--- NOTE | 2019-03-11 10:08 | PN ---
Progress Note - Progress Note Date of Service: 03/11/19 SOAP: Subjective: [She is in bed today, she is sedated but is in pain in exam this am. She is not moving and has been very weak. She wants to go home. Dextrose (Dextrose 50% Vial 50 Ml*) 25 ml IV PUSH .FOR FS < 60 - SS PRN PRN Reason: FS < 60 Fentanyl (Duragesic Patch 25 Mcg/Hr*) 25 mcg TRANSDERM Q72H [facility] Last Admin: 03/11/19 09:20 Dose: 25 mcg Fentanyl (Duragesic Patch 12 Mcg/Hr *) 12 mcg TRANSDERM Q72H [facility] Last Admin: 03/11/19 09:20 Dose: 12 mcg Heparin Sodium (Porcine) (Heparin Flush Picc/Ml/Cvc(*)) 1 - 3 ml FLUSH 0600, 1800 [facility]; Protocol Last Admin: 03/11/19 06:29 Dose: 2 ml Heparin Sodium (Porcine) (Heparin Vial(*)) 5,000 units SUBCUT Q12H [facility] Last Admin: 03/11/19 04:57 Dose: 5,000 units Hydrocortisone Sodium Succinate (Solu-Cortef*) 50 mg IV 0400,1600 [facility] Last Admin: 03/11/19 04:50 Dose: 50 mg Hydromorphone HCl (Dilaudid Inj1s*) 1 mg IV Q3H PRN PRN Reason: PAIN - MODERATE Last Admin: 03/11/19 08:47 Dose: 1 mg Metronidazole/Sodium Chloride (Flagyl 500 Mg Ivpb*) 500 mg in 100 mls @ 100 mls /hr IVPB Q8H [facility] Last Admin: 03/11/19 09:02 Dose: 100 mls/hr Ceftriaxone Sodium 1 gm/ (Sodium Chloride) 50 mls @ 100 mls/hr IVPB Q24H [facility] Last Admin: 03/10/19 22:13 Dose: 100 mls/hr Vancomycin HCl 1,000 mg/ (Sodium Chloride) 250 mls @ 166.667 mls/hr IVPB 0600, 1800 [facility]; Protocol Last Admin: 03/11/19 06:30 Dose: 166.667 mls/hr Potassium Phosphate 15 mmole/ (Sodium Chloride) 255 mls @ 42 mls/hr IVPB ONCE ONE Stop: 03/11/19 14:33 Last Admin: 03/11/19 09:25 Dose: 42 mls/hr Insulin Human Lispro (Humalog*) 0 units SUBCUT ACHS [facility]; Protocol Last Admin: 03/11/19 07:24 Dose: Not Given Levothyroxine Sodium (Synthroid Inj*) 25 mcg IV 0600 [facility] Last Admin: 03/11/19 07:10 Dose: 25 mcg Lidocaine (Lidoderm 5% Patch*) 1 patch TRANSDERM DAILY [facility] Last Admin: 03/11/19 09:39 Dose: 1 patch Metoprolol Tartrate (Lopressor Iv*) 5 mg IV Q6H PRN PRN Reason: for HR>90 or SBP>140 Last Admin: 03/07/19 19:37 Dose: 5 mg Miscellaneous (Ativan Pyxis Nunez) 1 ea N/A .ATIVAN IV NUNEZ PRN PRN Reason: PYXIS NUNEZ Ondansetron HCl (Zofran Inj*) 4 mg IV Q4H PRN PRN Reason: NAUSEA/VOMITING Last Admin: 03/09/19 10:06 Dose: 4 mg Pantoprazole Sodium (Protonix Iv*) 40 mg IV DAILY [facility] Last Admin: 03/11/19 09:03 Dose: 40 mg Pharmacy Consult (Vancomycin Per Pharmacy*) 1 note FOLLOW UP .VANC PER PHARMACY [facility]; Protocol Pharmacy Profile Note (Lidocaine Patch Remove*) 1 note N/A 2100 [facility] Pharmacy Profile Note (Fentanyl Patch Check Q Shift) 1 note FOLLOW UP 0700, 1900 [facility] ] Objective: [ Vital Signs Temp Pulse Resp BP Pulse Ox 98 F 114 18 122/67 97 03/11/19 07:53 03/11/19 07:53 03/11/19 09:20 03/11/19 07:53 03/11/19 07:53 ] Gen: No acute distress. HEENT: pale, OM dry, NTG ABD: There are some BS and has stool in colostomy bag Ext +2 CARE[facility] Neuro: very sedated today, is responding to questions. Assessment: []78 year old with stage IV lung cancer, on pain medication and steroids who presents with perforated diverticulitis. 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 She is now recovering from surgery, has BM. Primary complaint is sever pain. She is very weak but stable. Discussed with patient as much as she could and with her , Art Utter, about her prognosis. No therapy for cancer and I expect a short time to liver. Goal is to recover from surgery and control pain. Would like to get her home with family with hospice. Plan: []1. GI. Will continue to advance diet and work to discharge from hospital. - Titrate diet - Work on getting out of bed when pain is improved. 2. Pain - Morphine ER 30 mg po bid - Consider XRT to shoulder, short course. 2. FLY TIER disease. - Start tapering steroids 3.FEN. Replete K and Mg, Phos as needed. 4. Discussed with - Palliative are consultation Tuesday - Goal is D/C to family. face time 40 min with patient .
--- NOTE | 2019-03-11 10:29 | PN ---
Progress Note - Progress Note Date of Service: 03/11/19 SOAP: Subjective: Pt seen and examined. Wants to go home. Abdo pain, R shoulder pain. tolerating clears. no nausea Appreciate onc note Objective: Temp Pulse Resp BP Pulse Ox 98 F 114 18 122/67 97 03/11/19 07:53 03/11/19 07:53 03/11/19 10:08 03/11/19 07:53 03/11/19 07:53 a and o x3 abdo: soft/ ND/ incisional tenderness packing in place. no redness colostomy with stool output ext wnl; central line in place Assessment: POD 7 Dennis's Plan: clears OOB PT palliative care
--- NOTE | 2019-03-11 13:41 | PN ---
Subjective Date of Service: 03/11/19 Interval History: Patient seen today, awake, alert complains of pain right shoulder and wants to go home. NGT is out. diet as per surgery recommendations. Past Medical History: Unchanged from Admission Objective Active Medications: Dextrose (Dextrose 50% Vial 50 Ml*) 25 ml IV PUSH .FOR FS < 60 - SS PRN PRN Reason: FS < 60 Fentanyl (Duragesic Patch 25 Mcg/Hr*) 25 mcg TRANSDERM Q72H [facility]ID Last Admin: 03/11/19 09:20 Dose: 25 mcg Fentanyl (Duragesic Patch 12 Mcg/Hr *) 12 mcg TRANSDERM Q72H [facility] Last Admin: 03/11/19 09:20 Dose: 12 mcg Heparin Sodium (Porcine) (Heparin Flush Picc/Ml/Cvc(*)) 1 - 3 ml FLUSH 0600, 1800 [facility]; Protocol Last Admin: 03/11/19 10:49 Dose: 1 ml Heparin Sodium (Porcine) (Heparin Vial(*)) 5,000 units SUBCUT Q12H [facility] Last Admin: 03/11/19 04:57 Dose: 5,000 units Hydrocortisone Sodium Succinate (Solu-Cortef*) 50 mg IV 0400,1600 [facility] Last Admin: 03/11/19 04:50 Dose: 50 mg Hydromorphone HCl (Dilaudid Inj1s*) 1 mg IV Q3H PRN PRN Reason: PAIN - MODERATE Last Admin: 03/11/19 12:58 Dose: 1 mg Metronidazole/Sodium Chloride (Flagyl 500 Mg Ivpb*) 500 mg in 100 mls @ 100 mls /hr IVPB Q8H [facility] Last Admin: 03/11/19 09:02 Dose: 100 mls/hr Ceftriaxone Sodium 1 gm/ (Sodium Chloride) 50 mls @ 100 mls/hr IVPB Q24H [facility] Last Admin: 03/10/19 22:13 Dose: 100 mls/hr Vancomycin HCl 1,000 mg/ (Sodium Chloride) 250 mls @ 166.667 mls/hr IVPB 0600, 1800 [facility]; Protocol Last Admin: 03/11/19 06:30 Dose: 166.667 mls/hr Potassium Phosphate 15 mmole/ (Sodium Chloride) 255 mls @ 42 mls/hr IVPB ONCE ONE Stop: 03/11/19 14:33 Last Admin: 03/11/19 09:25 Dose: 42 mls/hr Insulin Human Lispro (Humalog*) 0 units SUBCUT ACHS [facility]; Protocol Last Admin: 03/11/19 12:01 Dose: Not Given Levothyroxine Sodium (Synthroid Inj*) 25 mcg IV 0600 [facility] Last Admin: 03/11/19 07:10 Dose: 25 mcg Lidocaine (Lidoderm 5% Patch*) 1 patch TRANSDERM DAILY [facility] Last Admin: 03/11/19 09:39 Dose: 1 patch Metoprolol Tartrate (Lopressor Iv*) 5 mg IV Q6H PRN PRN Reason: for HR>90 or SBP>140 Last Admin: 03/07/19 19:37 Dose: 5 mg Miscellaneous (Ativan Pyxis Nunez) 1 ea N/A .ATIVAN IV NUNEZ PRN PRN Reason: PYXIS NUNEZ Ondansetron HCl (Zofran Inj*) 4 mg IV Q4H PRN PRN Reason: NAUSEA/VOMITING Last Admin: 03/09/19 10:06 Dose: 4 mg Pantoprazole Sodium (Protonix Iv*) 40 mg IV DAILY [facility] Last Admin: 03/11/19 09:03 Dose: 40 mg Pharmacy Consult (Vancomycin Per Pharmacy*) 1 note FOLLOW UP .VANC PER PHARMACY [facility]; Protocol Pharmacy Profile Note (Lidocaine Patch Remove*) 1 note N/A 2100 [facility] Pharmacy Profile Note (Fentanyl Patch Check Q Shift) 1 note FOLLOW UP 0700, 1900 [facility] Vital Signs - 8 hr 03/11/19 03/11/19 03/11/19 06:00 07:53 08:00 Temperature 98 F Pulse Rate 114 Respiratory 16 20 18 Rate Blood Pressure 122/67 (mmHg) O2 Sat by Pulse 97 Oximetry 03/11/19 03/11/19 03/11/19 08:47 09:20 10:08 Temperature Pulse Rate Respiratory 20 18 18 Rate Blood Pressure (mmHg) O2 Sat by Pulse Oximetry 03/11/19 03/11/19 11:56 12:58 Temperature 97.9 F Pulse Rate 128 Respiratory 20 18 Rate Blood Pressure 99/54 (mmHg) O2 Sat by Pulse 98 Oximetry Oxygen Devices in Use Now: Nasal Cannula Appearance: Awake, alert no distress, emotionally upset Eyes: - - EOMI Ears/Nose/Mouth/Throat: - - most mucuous membrane. Neck: Trachea Midline, - - Left anterior chest wall central line Respiratory: Clear to Auscultation, - - diminished at bases Cardiovascular: NL Sounds; No Murmurs; No JVD Abdominal: NL Sounds; No Tenderness; No Distention Neurological: Alert and Oriented x 3 Result Diagrams: 03/11/19 06:20 03/11/19 06:20 Microbiology and Other Data: Microbiology 03/04/19 21:40 Anaerobic Culture - Final Wound 03/04/19 21:40 Skin and Soft Tissue MRSA/MSSA (PCR - Final Misc Source (See Comment) Mrsa Negative S.aureus Negative Gram Stain - Final Wound Culture - Final Escherichia Coli Proteus Mirabilis Enterococcus Faecalis Enterococcus Avium Anaerobic Gram Negative Bacill 03/04/19 00:47 Urine Culture - Final Urine Escherichia Coli 03/04/19 22:43 Nasal Screen MRSA (PCR) - Final Nasal Mrsa Not Detected Assess/Plan/Problems-Billing Assessment: 78 y/o female admitted on 03/03/19 for abdominal pain found to have perforated diverticulitis and peritonitis, Underwent Exp/Lap with s/p exlap/Dennis/SB bypass on 03/04/19 currently on TPN and broad spectrum antibiotics was found to have RLL pneumoniae, left DVT s/p IVC filter off anticoagulation due to hemoptysis - Patient Problems (1) Peritonitis and retroperitoneal infections Current Visit: Yes Status: Acute Code(s): K65.9 - PERITONITIS, UNSPECIFIED SNOMED Code(s): 62742337 Comment: - secondary to perforated diverticulitis - s/p s/p ex-lap/Dennis/SB bypass on 03/03/19 - Continue triple antibiotics coverage with Rocephin Day #6; Flagyl Day # 7; Vanco Day #4 - Surgery on board. Will discontinue TPN today as her picc-line is infiltrated, . Central line in place by Dr. Whitaker. Off TPN and will continue eletrolytes replacement - Pain control with dilaudid not adequate for her right shoulder pain. I did add fentanyl patch 37.5 mcg and lidocaine patch to right shoulder. Her CT abdomen/Pelvis/Chest from 03/09/19 reveals no evidence of collection or abscess. - Discharge home once cleared by surgery on diet as tolerated. (2) Perforated diverticulum of large intestine Current Visit: Yes Status: Acute Code(s): K57.20 - DVTRCLI OF LG INT W PERFORATION AND ABSCESS W/O BLEEDING SNOMED Code(s): 791235617 Comment: - secondary to perforated diverticulitis - s/p s/p ex-lap/Dennis/SB bypass on 03/03/19 - Continue triple antibiotics coverage with Rocephin Day #6; Flagyl Day # 7; Vanco Day #4 - Surgery on board. Will discontinue TPN today as her picc-line is infiltrated, . Central line in place by Dr. Whitaker. Off TPN and will continue eletrolytes replacement - Pain control with dilaudid not adequate for her right shoulder pain. I did add fentanyl patch 37.5 mcg and lidocaine patch to right shoulder. Her CT abdomen/Pelvis/Chest from 03/09/19 reveals no evidence of collection or abscess. - Discharge home once cleared by surgery on diet as tolerated. - Biopsy of bowel did not show any evidence of neoplasm (3) Adenocarcinoma of lung, stage 4 Current Visit: Yes Status: Acute Code(s): C34.90 - MALIGNANT NEOPLASM OF UNSP PART OF UNSP BRONCHUS OR LUNG SNOMED Code(s): 280129158 Comment: - Stage 4 adenocarcinoma and mets to bone and brain - DNR/DNI - Continue hydrocortisone 50 mg IV Q12hrs and resume po decadron once can take PO - Appreciate oncology note. prognosis poor. and recommended hospise once discharged home. (4) Dvt femoral (deep venous thrombosis) Current Visit: Yes Status: Acute Code(s): I82.419 - ACUTE EMBOLISM AND THROMBOSIS OF UNSPECIFIED FEMORAL VEIN SNOMED Code(s): 739144634 Comment: - Off anticoagulation due to hemoptysis while in ICU - S/p IVC filter - on SQ heparin for DVT prophylaxis as of 03/10/19, no reoccurence of hemoptysis so far, It it re-occur than will deem patient to have absolute contraindication for anticoagulations (5) RLL pneumonia Current Visit: Yes Status: Acute Code(s): J18.1 - LOBAR PNEUMONIA, UNSPECIFIED ORGANISM SNOMED Code(s): 933917420 Comment: - Continue triple antibiotic coverage Rocephin Day #6; Flagyl Day # 6; Vanco Day #4 - Follow up CT chest ordered today (6) Atrial fibrillation Current Visit: No Status: Acute Code(s): I48.91 - UNSPECIFIED ATRIAL FIBRILLATION SNOMED Code(s): 09687340 Comment: - On lopressor 5 mg IV Q6hrs. Change to PO lopressor once able to take PO - Off anticoagulation due to hemoptysis while in ICU - on SQ heparin for DVT prophylaxis as of 03/10/19, no reoccurence of hemoptysis so far, If it re-occur than will deem patient to have absolute contraindication for anticoagulations (7) HTN (hypertension) Current Visit: No Status: Acute Code(s): I10 - ESSENTIAL (PRIMARY) HYPERTENSION SNOMED Code(s): 43255539 Comment: - On lopressor 5 mg IV Q6hrs. Change to PO lopressor once able to take PO (8) Hypothyroid Current Visit: No Status: Acute Code(s): E03.9 - HYPOTHYROIDISM, UNSPECIFIED SNOMED Code(s): 44226808 Comment: Continue usual dose levothyroxine. TSH wnl 05/05/15. (9) DVT prophylaxis Current Visit: Yes Status: Acute Code(s): Z29.9 - ENCOUNTER FOR PROPHYLACTIC MEASURES, UNSPECIFIED SNOMED Code(s): 024901643 Comment: - Off anticoagulation due to hemoptysis while in ICU - S/p IVC filter - on SQ heparin for DVT prophylaxis as of 03/10/19, no reoccurence of hemoptysis so far, if it re-occur than will deem patient to have absolute contraindication for anticoagulations
--- NOTE | 2019-03-11 15:15 | OP ---
DATE OF OPERATION: 03/10/19 - ROOM #333 DATE OF : 42 SURGEON: Ed Whitaker MD MAITRE D': None. ANESTHESIA: Local anesthesia. PRE-OP DIAGNOSIS: No IV access. POST-OP DIAGNOSIS: No IV access. OPERATIVE PROCEDURE: Insertion of triple-lumen catheter. DESCRIPTION OF PROCEDURE: The patient lost IV access with a failed PICC line earlier today. She continues on IV antibiotics. She had been on TPN, but this was held after her diet was advanced. Without IV access, recommendation by the hospitalist service and this patient is also on surgical service felt that she needed a central catheter. I described to her the risks, benefits, and alternatives. The patient agreed to proceed, and the patient was placed in the Trendelenburg position in her hospital bed in her room. The left upper chest and neck were prepped and draped sterilely. A time-out was performed. The left subclavian vein was accessed and a wire inserted. This was then dilated and triple- lumen catheter was inserted appropriately. All 3 lumens were fleshed with sterile saline after aspiration of blood. It was sutured to the skin and sterile dressing applied. The patient tolerated the procedure well. [id number]/[facility] #: [id number] [facility]
[2019-03-11] MEDS: fentaNYL Patch Check Q Shift 1 NOTE FOLLOW UP SCH (19:11)
[2019-03-11] MEDS: cefTRIAXone(*) 1 GM in NS 0.9% 50 ML* 50 ML IVPB SCH (22:17)
[2019-03-11] MEDS: Dexamethasone TAB* 4 MG PO SCH (22:18)
[2019-03-11] MEDS: Lidocaine Patch REMOVE* 1 NOTE MISC SCH (22:22)
[2019-03-11] MEDS: Metoprolol Tartrate TAB* 25 MG PO SCH (23:55)
[2019-03-12] MEDS: HYDROmorphone INJ1* 1 MG/ML SYRINGE IV PRN ×5 (03:11→18:20)
[2019-03-12] MEDS: Heparin VIAL(*) 5000 UNITS/ML VIAL (FIVE THOUSAND) SUBCUT SCH (03:49)
[2019-03-12] MEDS: Levothyroxine TAB* 50 MCG TAB PO SCH (06:38)
[2019-03-12 06:50] LABS: Hematocrit 25 % (35-47); Hemoglobin 7.7 g/dL (12.0-16.0); Mean Corpuscular HGB Conc 32 g/dL (31-36); Mean Corpuscular Hemoglobin 24 pg (27-31); Mean Corpuscular Volume 76 fL (80-97); Mean Platelet Volume 9.6 fL (7.4-10.4); Platelet Count 128 10^3/uL (150-450); Red Blood Count 3.24 10^6 /uL (3.70-4.87); Red Cell Distribution Width 20 % (10-15); White Blood Count 21.9 10^3/uL (3.5-10.8)
[2019-03-12] MEDS: fentaNYL Patch Check Q Shift 1 NOTE FOLLOW UP SCH ×2 (06:57→18:46)
[2019-03-12 07:00] LABS: Calcium 7.1 mg/dL (8.6-10.3); EGFR African American 187.3 (>60); EGFR Non-African American 154.8 (>60); Magnesium 1.9 mg/dL (1.9-2.7); Phosphorus 1.8 mg/dL (2.5-5.0)
[2019-03-12 07:19] LABS: Vancomycin Trough 12.1 mcg/mL
[2019-03-12] MEDS: Vancomycin(*) 1,000 MG in NS 0.9% 250 ML* 250 ML IVPB SCH (07:36)
[2019-03-12] MEDS: Pantoprazole IV* 40 MG IV SCH (09:03)
[2019-03-12] MEDS: Dexamethasone TAB* 4 MG PO SCH ×2 (09:04→22:27)
[2019-03-12] MEDS: Lidocaine PATCH 5%* 1 PATCH TRANSDERM SCH ×2 (09:05→09:33)
[2019-03-12] MEDS: Insulin LISPRO* 1 UNITS UNIT SUBCUT SCH ×4 (09:05→22:27)
[2019-03-12] MEDS: metroNIDAZOLE IV 500 MG/100ML* 500 MG/100 ML BAG IVPB SCH ×2 (09:36→16:34)
[2019-03-12] MEDS: Metoprolol Tartrate TAB* 25 MG PO SCH ×2 (10:11→22:27)
--- NOTE | 2019-03-12 10:24 | PN ---
Progress Note - Progress Note Date of Service: 03/12/19 SOAP: Subjective:no abd pain;jason clears;c/o pain R shoulder and elbow [] Objective: Vital Signs Temp 98.6 F 03/12/19 07:44 Pulse 106 03/12/19 09:46 Resp 18 03/12/19 10:09 BP 103/48 03/12/19 09:46 Pulse Ox 95 03/12/19 09:46 Intake & Output 03/11/19 03/12/19 03/12/19 18:59 06:59 18:59 Intake Total 2014 280 Output Total 250 525 Balance 1765 -245 Intake: IV Fluids 130 NS 130 IVPB 640 ABX - FLAGYL 105 potassium phosphate 255 vancomycin 280 Medicated IV 210 Potassium 210 Oral 1035 280 Output: Garner 250 525 Laboratory Results - last 24 hr 03/11/19 03/11/19 03/11/19 06:39 11:59 16:10 WBC RBC Hgb Hct MCV MCH MCHC RDW Plt Count MPV Sodium Potassium Chloride Carbon Dioxide Anion Gap BUN Creatinine Est GFR ( Amer) Est GFR (Non-Af Amer) BUN/Creatinine Ratio Glucose POC Glucose (mg/dL) 105 H 120 H 133 H Calcium Phosphorus Magnesium Vancomycin Trough 03/11/19 03/12/19 03/12/19 21:53 06:20 06:20 WBC 21.9 H RBC 3.24 L Hgb 7.7 L Hct 25 L MCV 76 L MCH 24 L MCHC 32 RDW 20 H Plt Count 128 L MPV 9.6 Sodium 141 Potassium 4.0 Chloride 105 Carbon Dioxide 34 H Anion Gap 2 BUN 22 Creatinine 0.40 L Est GFR ( Amer) 187.3 Est GFR (Non-Af Amer) 154.8 BUN/Creatinine Ratio 55.0 H Glucose 137 H POC Glucose (mg/dL) 130 H Calcium 7.1 L Phosphorus 1.8 L Magnesium 1.9 Vancomycin Trough 12.1 03/12/19 08:04 WBC RBC Hgb Hct MCV MCH MCHC RDW Plt Count MPV Sodium Potassium Chloride Carbon Dioxide Anion Gap BUN Creatinine Est GFR ( Amer) Est GFR (Non-Af Amer) BUN/Creatinine Ratio Glucose POC Glucose (mg/dL) 161 H Calcium Phosphorus Magnesium Vancomycin Trough abd:+bs;soft,nondistended;nontender;midline incision intact with ciera and intermittent open and granulating areas that are repacked with 1/2" moist NS nugauze strips;no erythema or purulence;colostomy with black soft stool,?melena [] Assessment:POD#8 s/p Dennis's,SB bypass;no abdominal pain;stool looks like melena [] Plan:check stool for hemoccult;continue clear liquids; updated []
--- NOTE | 2019-03-12 11:02 | PN ---
Progress Note - Progress Note Date of Service: 03/12/19 SOAP: Subjective: []Wants to go home. Declined RT stating she doesn't think it will help and feels like she can deal with the pain. This is shortly followed by, "Can't you do something for the pain?" and son @ bedside trying to communicate and console patient who notably frustrated. Patient lives at home with , minimal family around. can not independently assist patient with repositioning. Medications: Dexamethasone (Decadron Tab*) 4 mg PO BID [facility] Last Admin: 03/12/19 09:04 Dose: 4 mg Dextrose (Dextrose 50% Vial 50 Ml*) 25 ml IV PUSH .FOR FS < 60 - SS PRN PRN Reason: FS < 60 Fentanyl (Duragesic Patch 25 Mcg/Hr*) 25 mcg TRANSDERM Q72H [facility] Last Admin: 03/11/19 09:20 Dose: 25 mcg Fentanyl (Duragesic Patch 12 Mcg/Hr *) 12 mcg TRANSDERM Q72H [facility] Last Admin: 03/11/19 09:20 Dose: 12 mcg Heparin Sodium (Porcine) (Heparin Flush Picc/Ml/Cvc(*)) 1 - 3 ml FLUSH 0600, 1800 [facility]; Protocol Last Admin: 03/12/19 06:25 Dose: 2 ml Hydromorphone HCl (Dilaudid Inj1s*) 1 mg IV Q2H PRN PRN Reason: PAIN - MODERATE Last Admin: 03/12/19 10:09 Dose: 1 mg Metronidazole/Sodium Chloride (Flagyl 500 Mg Ivpb*) 500 mg in 100 mls @ 100 mls /hr IVPB Q8H [facility] Last Admin: 03/12/19 09:36 Dose: 100 mls/hr Ceftriaxone Sodium 1 gm/ (Sodium Chloride) 50 mls @ 100 mls/hr IVPB Q24H [facility] Last Admin: 03/11/19 22:17 Dose: 100 mls/hr Vancomycin HCl 1,250 mg/ (Sodium Chloride) 250 mls @ 166.667 mls/hr IVPB Q12H [facility] Insulin Human Lispro (Humalog*) 0 units SUBCUT ACHS [facility]; Protocol Last Admin: 03/12/19 09:05 Dose: 3 units Levothyroxine Sodium (Synthroid Tab*) 50 mcg PO DAILY@0600 [facility] Last Admin: 03/12/19 06:38 Dose: 50 mcg Lidocaine (Lidoderm 5% Patch*) 1 patch TRANSDERM DAILY [facility] Last Admin: 03/12/19 09:33 Dose: 1 patch Metoprolol Tartrate (Lopressor Tab*) 25 mg PO BID [facility] Last Admin: 03/12/19 10:11 Dose: 25 mg Miscellaneous (Ativan Pyxis Nunez) 1 ea N/A .ATIVAN IV NUNEZ PRN PRN Reason: PYXIS NUNEZ Ondansetron HCl (Zofran Inj*) 4 mg IV Q4H PRN PRN Reason: NAUSEA/VOMITING Last Admin: 03/09/19 10:06 Dose: 4 mg Pantoprazole Sodium (Protonix Iv*) 40 mg IV DAILY [facility] Last Admin: 03/12/19 09:03 Dose: 40 mg Pharmacy Consult (Vancomycin Per Pharmacy*) 1 note FOLLOW UP .VANC PER PHARMACY [facility]; Protocol Pharmacy Profile Note (Lidocaine Patch Remove*) 1 note N/A 2100 [facility] Last Admin: 03/11/19 22:22 Dose: 1 note Pharmacy Profile Note (Fentanyl Patch Check Q Shift) 1 note FOLLOW UP 0700, 1900 [facility] Last Admin: 03/12/19 06:57 Dose: 1 note Pharmacy Profile Note (Vancomycin Trough Check) 1 note FOLLOW UP 0530 ONE Stop: 03/14/19 05:31 Objective: [] Vital Signs Temp Pulse Resp BP Pulse Ox 98.6 F 106 18 103/48 95 03/12/19 07:44 03/12/19 09:46 03/12/19 10:09 03/12/19 09:46 03/12/19 09:46 Alert, oriented, however confused at times with unrealistic understanding of her abilities HRR, S1S2 LS dim. +BS, midline incision dressing CDI Ostomy +melena Laboratory Results - last 24 hr 03/11/19 03/12/19 03/12/19 21:53 06:20 06:20 WBC 21.9 H RBC 3.24 L Hgb 7.7 L Hct 25 L MCV 76 L MCH 24 L MCHC 32 RDW 20 H Plt Count 128 L MPV 9.6 Sodium 141 Potassium 4.0 Chloride 105 Carbon Dioxide 34 H Anion Gap 2 BUN 22 Creatinine 0.40 L Est GFR ( Amer) 187.3 Est GFR (Non-Af Amer) 154.8 BUN/Creatinine Ratio 55.0 H Glucose 137 H POC Glucose (mg/dL) 130 H Calcium 7.1 L Phosphorus 1.8 L Magnesium 1.9 Vancomycin Trough 12.1 Assessment: []78 yo female admitted with GI perforation, POD 9, now with evidence for GI bleed. She has metastatic NSCLC with mets to Right shoulder and right humerous causing significant pain, however she has declined RT. Initial plan was for d/ c home with hospice, however I have significant concerns regarding her family's ability to provide 24 hour care. With active GI bleed and pt. unable to tolerate further interventions her prognosis is measured in one to two weeks at most, though I suspect she will decline rapidly. Corazon states understanding of this and remains adamant that she wants to go home. Plan: []- transfuse 1 unit PRBCs today, patient consented - hospice consult, she would be an excellent candidate for the residence as I suspect we will see a rapid decline - case management to review options with family as well (out of pocket costs of options) - Fentanyl patch started yesterday, recommend starting standing and PRN lorazepam to assist with pain management and agitation, add PO morphine to evaluate pt. response as we attempt to coordinate getting her out of the hospital DNR
[2019-03-12] MEDS ORDERED: Lorazepam PYXIS KEY PRN (11:12)
[2019-03-12] MEDS ORDERED: LORazepam INJ* 2 MG/ML 1 ML VIAL IV PUSH PRN (11:12)
[2019-03-12] MEDS: LORazepam INJ* 2 MG/ML 1 ML VIAL IV PUSH SCH ×2 (11:29→22:26)
--- NOTE | 2019-03-12 11:38 | PN ---
Hospitalist Progress Note Date of Service: 03/12/19 Patient seen evaluated, discussed case with oncology Gia Benson and will transfer/accept patient to the oncology service. Signed off the case
[2019-03-12] MEDS: Morphine ORAL CONCENTRATE* 5 MG/0.25 ML ORAL.SYRIN PO PRN ×3 (16:34→22:26)
--- NOTE | 2019-03-12 16:42 | RADMED ---
RADIATION ONCOLOGY INPATIENT CONSULTATION: DATE OF SERVICE: 03/12/19 DIAGNOSIS: Metastatic non-small cell lung cancer, AJCC stage 4. PERFORMANCE STATUS: ECOG 3. HISTORY OF PRESENT ILLNESS: Corazon Christensen is a 78-year-old woman with recent diagnosis of non-small cell lung cancer on biopsy performed on 12/29/18. Radiographic evaluation identified brain metastasis, and she did undergo radiosurgery treatment. She has had severe right shoulder pain related to metastatic involvement of the scapula and right humerus, and was on my schedule for palliative radiation oncology consultation. In the interval, she developed abdominal pain, perforated diverticulitis and small bowel obstruction, and underwent surgery on 03/05/19. She is making some progress in terms of healing and recovery from surgery for peritoneal abscess, and inpatient radiation oncology consultation is placed for consideration of palliative external beam radiation therapy for severe pain from bony metastasis in the right scapula and right humerus. PAST MEDICAL HISTORY: Lung cancer, as in the history of present illness; history of AFib, hypothyroidism; hypertension; dyslipidemia; arthritis; spinal stenosis. MEDICATIONS: As per the inpatient record. ALLERGIES: CARBAPENEM, CEPHALOSPORIN, PENICILLIN. FAMILY HISTORY: No history of malignancy reported in her first-degree relatives. SOCIAL HISTORY: She is accompanied by her who is quite supportive. She is a former smoker. PHYSICAL EXAM: Temperature 98.6, pulse rate 97, respiratory rate 18, oxygen saturation 98% on room air, blood pressure 101/62. General: She is awake, alert, in significant distress related to right shoulder pain. Normocephalic, atraumatic. Sclerae are anicteric. Neck: Supple. Full range of motion. Midline trachea. No masses palpable in the neck or thyroid. Musculoskeletal: Tenderness to palpation over the proximal right humerus as well as the scapula. Lungs: With coarse rhonchi scattered throughout. Cardiovascular: S1, S2 regular. Abdomen: Diffuse mild tenderness. ASSESSMENT AND PLAN: Corazon Christensen is a 78-year-old woman with recently diagnosed metastatic non-small cell lung cancer. She is recovering from recent abdominal surgery related to perforated diverticulitis and abscess. She has severe uncontrolled pain around the right shoulder related to bony metastasis in the right humerus and right scapula. I reviewed with the patient and her the logistics and rationale for consideration of palliative radiation therapy including risks, benefits, and alternatives as well as the acute and long-term frequent and uncommon toxicities. During our initial meeting, she is in severe distress, and agreed that she would like to proceed with any treatment that could improve pain. When I returned for further discussion and to have her sign consent for radiation therapy, she was better able to understand the potential treatment process, and clearly state that she does not want to undergo additional medical procedures. For palliative radiation, even single fraction, she would require CT simulation which is a 1-hour procedure as well as delivery of a single palliative fraction of radiation which would probably take approximately 30 to 45 minutes on the treatment table. When this was explained to the patient, she clearly indicates that she does not want to proceed with palliative radiation therapy at this point, and prefers to go home. No additional treatment is planned for her cancer at this point, and she understands the palliative nature of radiation therapy. On the other hand, uncontrolled shoulder pain has been a major symptomatic concern, and radiation therapy could provide some quality of life benefit even if she does not pursue additional anticancer treatment. I did discuss this with the patient and her , and for the time being she is declining to move forward with radiation therapy, but I did let them know that if she changes her mind, treatment can be arranged in short order. I invited them to contact me with additional questions or concerns. [id number]/[facility] #: [id number] ABILIO
[2019-03-12] MEDS: Vancomycin(*) 1,250 MG in NS 0.9% 250 ML* 250 ML IVPB SCH (17:49)
[2019-03-12] MEDS: cefTRIAXone(*) 1 GM in NS 0.9% 50 ML* 50 ML IVPB SCH (22:23)
[2019-03-12] MEDS: Lidocaine Patch REMOVE* 1 NOTE MISC SCH (22:28)
[2019-03-13] MEDS: metroNIDAZOLE IV 500 MG/100ML* 500 MG/100 ML BAG IVPB SCH ×3 (01:05→16:07)
[2019-03-13] MEDS: HYDROmorphone INJ1* 1 MG/ML SYRINGE IV PRN ×4 (02:26→18:48)
[2019-03-13 06:05] LABS: Hematocrit 27 % (35-47); Hemoglobin 8.6 g/dL (12.0-16.0); Mean Corpuscular HGB Conc 32 g/dL (31-36); Mean Corpuscular Hemoglobin 24 pg (27-31); Mean Corpuscular Volume 78 fL (80-97); Mean Platelet Volume 10.2 fL (7.4-10.4); Platelet Count 142 10^3/uL (150-450); Red Blood Count 3.51 10^6 /uL (3.70-4.87); Red Cell Distribution Width 20 % (10-15); White Blood Count 21.1 10^3/uL (3.5-10.8)
[2019-03-13] MEDS: Vancomycin(*) 1,250 MG in NS 0.9% 250 ML* 250 ML IVPB SCH ×2 (06:12→18:41)
[2019-03-13] MEDS: Levothyroxine TAB* 50 MCG TAB PO SCH (06:14)
[2019-03-13] MEDS: fentaNYL Patch Check Q Shift 1 NOTE FOLLOW UP SCH ×2 (07:06→19:25)
[2019-03-13] MEDS: Morphine ORAL CONCENTRATE* 5 MG/0.25 ML ORAL.SYRIN PO PRN ×3 (08:18→19:57)
[2019-03-13] MEDS: Pantoprazole IV* 40 MG IV SCH (09:44)
[2019-03-13] MEDS: Metoprolol Tartrate TAB* 25 MG PO SCH ×2 (09:44→21:44)
[2019-03-13] MEDS: Dexamethasone TAB* 4 MG PO SCH ×2 (09:44→21:43)
[2019-03-13] MEDS: Insulin LISPRO* 1 UNITS UNIT SUBCUT SCH ×4 (09:45→21:56)
[2019-03-13] MEDS: Lidocaine PATCH 5%* 1 PATCH TRANSDERM SCH (09:58)
[2019-03-13] MEDS: LORazepam INJ* 2 MG/ML 1 ML VIAL IV PUSH SCH ×2 (09:59→21:46)
--- NOTE | 2019-03-13 10:21 | PN ---
Progress Note - Progress Note Date of Service: 03/13/19 SOAP: Subjective: C/o shoulder pain. Wants to get OOB. No abd pain. Objective: Vital Signs Temp 97.5 F 03/13/19 07:31 Pulse 94 03/13/19 07:31 Resp 20 03/13/19 09:59 BP 109/60 03/13/19 07:31 Pulse Ox 93 03/13/19 07:31 Gen: NAD Abd: incision c/d; no erythema; ostomy with melena. Intake & Output 03/12/19 03/13/19 03/13/19 18:59 06:59 18:59 Intake Total 1606 850 890 Output Total 300 600 Balance 1306 250 890 Intake: IVPB 225 250 ABX - FLAGYL 225 vancomycin 250 Oral 1080 600 890 Packed Cells 301 Output: Urine 100 Garner 300 450 Colostomy 50 Laboratory Results - last 24 hr 03/12/19 03/12/19 03/12/19 06:20 12:50 17:15 WBC RBC Hgb Hct MCV MCH MCHC RDW Plt Count MPV POC Glucose (mg/dL) 157 H 158 H Blood Type O Positive Antibody Screen Negative Crossmatch See Detail 03/12/19 03/13/19 03/13/19 22:09 05:23 09:02 WBC 21.1 H RBC 3.51 L Hgb 8.6 L Hct 27 L MCV 78 L MCH 24 L MCHC 32 RDW 20 H Plt Count 142 L MPV 10.2 POC Glucose (mg/dL) 208 H 123 H Blood Type Antibody Screen Crossmatch Assessment: POD#9 s/p Dennis/J-J bypass. GIB s/p txfn. Metastatic Lung ca Plan: Stop wound packing. Optimize nutrition. Overall poor prognosis.
--- NOTE | 2019-03-13 11:35 | PN ---
Progress Note - Progress Note Date of Service: 03/13/19 SOAP: Subjective: []Feels well today. Is upright in chair. Pain 5/10, "that's OK. Denies questions. Medications: Dexamethasone (Decadron Tab*) 4 mg PO BID [facility] Last Admin: 03/13/19 09:44 Dose: 4 mg Dextrose (Dextrose 50% Vial 50 Ml*) 25 ml IV PUSH .FOR FS < 60 - SS PRN PRN Reason: FS < 60 Fentanyl (Duragesic Patch 25 Mcg/Hr*) 25 mcg TRANSDERM Q72H [facility] Last Admin: 03/11/19 09:20 Dose: 25 mcg Fentanyl (Duragesic Patch 12 Mcg/Hr *) 12 mcg TRANSDERM Q72H [facility] Last Admin: 03/11/19 09:20 Dose: 12 mcg Heparin Sodium (Porcine) (Heparin Flush Picc/Ml/Cvc(*)) 1 - 3 ml FLUSH 0600, 1800 [facility]; Protocol Last Admin: 03/13/19 06:57 Dose: Not Given Hydromorphone HCl (Dilaudid Inj1s*) 1 mg IV Q2H PRN PRN Reason: PAIN - MODERATE Last Admin: 03/13/19 09:44 Dose: 1 mg Metronidazole/Sodium Chloride (Flagyl 500 Mg Ivpb*) 500 mg in 100 mls @ 100 mls /hr IVPB Q8H [facility] Last Admin: 03/13/19 09:44 Dose: 100 mls/hr Ceftriaxone Sodium 1 gm/ (Sodium Chloride) 50 mls @ 100 mls/hr IVPB Q24H [facility] Last Admin: 03/12/19 22:23 Dose: 100 mls/hr Vancomycin HCl 1,250 mg/ (Sodium Chloride) 250 mls @ 166.667 mls/hr IVPB Q12H [facility] Last Admin: 03/13/19 06:12 Dose: 166.667 mls/hr Insulin Human Lispro (Humalog*) 0 units SUBCUT ACHS [facility]; Protocol Last Admin: 03/13/19 09:45 Dose: Not Given Levothyroxine Sodium (Synthroid Tab*) 50 mcg PO DAILY@0600 [facility] Last Admin: 03/13/19 06:14 Dose: 50 mcg Lidocaine (Lidoderm 5% Patch*) 1 patch TRANSDERM DAILY [facility] Last Admin: 03/13/19 09:58 Dose: 1 patch Lorazepam (Ativan Inj*) 0.5 mg IV PUSH Q4H PRN PRN Reason: agitation/anxiety Lorazepam (Ativan Inj*) 0.5 mg IV PUSH BID [facility] Last Admin: 03/13/19 09:59 Dose: 0.5 mg Metoprolol Tartrate (Lopressor Tab*) 25 mg PO BID [facility] Last Admin: 03/13/19 09:44 Dose: 25 mg Miscellaneous (Ativan Pyxis Nunez) 1 ea N/A .ATIVAN IV NUNEZ PRN PRN Reason: PYXIS NUNEZ Miscellaneous (Ativan Pyxis Nunez) 1 ea N/A .ATIVAN IV NUNEZ PRN PRN Reason: PYXIS NUNEZ Morphine Sulfate (Morphine Oral Concentrate*) 5 mg PO Q2H PRN PRN Reason: PAIN - SEVERE Last Admin: 03/13/19 08:18 Dose: 5 mg Ondansetron HCl (Zofran Inj*) 4 mg IV Q4H PRN PRN Reason: NAUSEA/VOMITING Last Admin: 03/09/19 10:06 Dose: 4 mg Pantoprazole Sodium (Protonix Iv*) 40 mg IV DAILY [facility] Last Admin: 03/13/19 09:44 Dose: 40 mg Pharmacy Consult (Vancomycin Per Pharmacy*) 1 note FOLLOW UP .VANC PER PHARMACY [facility]; Protocol Pharmacy Profile Note (Lidocaine Patch Remove*) 1 note N/A 2100 [facility] Last Admin: 03/12/19 22:28 Dose: 1 note Pharmacy Profile Note (Fentanyl Patch Check Q Shift) 1 note FOLLOW UP 0700, 1900 [facility] Last Admin: 03/13/19 07:06 Dose: 1 note Pharmacy Profile Note (Vancomycin Trough Check) 1 note FOLLOW UP 0530 ONE Stop: 03/14/19 05:31 Objective: [] Vital Signs Temp Pulse Resp BP Pulse Ox 97.4 F 112 20 111/58 96 03/13/19 11:24 03/13/19 11:24 03/13/19 11:24 03/13/19 11:24 03/13/19 11:24 A&O, forgetful HRR, S1S2 LS dim. bases with poor resp. effort, no audible wheeze or rhonchi +BS, abd. round Ostomy RLQ benign with melena appearing stool midline incision with partial dehiscence, not full depth, without exudate Laboratory Results - last 24 hr 03/12/19 03/13/19 03/13/19 22:09 05:23 09:02 WBC 21.1 H RBC 3.51 L Hgb 8.6 L Hct 27 L MCV 78 L MCH 24 L MCHC 32 RDW 20 H Plt Count 142 L MPV 10.2 POC Glucose (mg/dL) 208 H 123 H Blood Type Antibody Screen Crossmatch Assessment: []78 yo female admitted metastatic NSCLC (mets to [employer] SUPER[employer] and bone) with GI perforation, POD 9 s/p Dennis/J-J bypass (clarification: yesterday was POD8), with GI bleed s/p 1 unit of PRBCs yesterday and hmg stable @ 8.6 today. Mrs. Christensen appears less anxious today and her pain is better controlled, however she continues to have melena and a very poor performance status. At this time plan is for d/c to hospice in a nursing facility, location pending; she has deferred palliative RT which is appropriate as unfortunately she likely will not improve from her current condition. Plan: []1. GI Bleed: repeat CBC today @ 1400 - if hmg <8 will give 1 unit PRBCs - anticoagulation on hold indefinetly d/t multiple episodes of bleeding and transition to end of life care - on IV PPI while inpt. and suggest cont.'d PO PPI on d/c - not a candidate for further intervention 2. SBO with perforation and subsequent peritonitis s/p Abd. surgery: post-op management as per surgery - dry dressings - cont. clears - cont. IV Rocephin and Flagyl (day 8) will plan d/c on PO abx. Levaquin and Flagyl at least through D14 3. RLL PNA: persistent leukocytosis without fevers and no increased resp. distress - triplet abx. with Vanco coverage, will d/c vanco on discharge, PO abx. as above 4. DVT: IVC filter inplace - off anticoagulation as above 5. A.Fib & HTN: rate reasonably controlled at 90-120s with stable BP - cont. current meds for now 6. Hypothyroidism: cont. home dose levothyroxine DNR Disposition: awaiting placement
[2019-03-13 14:12] LABS: Hematocrit 25 % (35-47); Hemoglobin 7.7 g/dL (12.0-16.0); Mean Corpuscular HGB Conc 31 g/dL (31-36); Mean Corpuscular Hemoglobin 25 pg (27-31); Mean Corpuscular Volume 78 fL (80-97); Mean Platelet Volume 9.5 fL (7.4-10.4); Platelet Count 147 10^3/uL (150-450); Red Blood Count 3.14 10^6 /uL (3.70-4.87); Red Cell Distribution Width 20 % (10-15); White Blood Count 23.6 10^3/uL (3.5-10.8)
[2019-03-13 14:28] LABS: ABS Basophils 0.1 10^3/ul (0-0.2); ABS Lymphocytes 0.7 10^3/ul (1.0-4.8); ABS Neutrophils 21.7 10^3/ul (1.5-7.7); Eosinophil % 0.1 %; Lymphocyte % 3.1 %; Nucleated Red Blood Cells % 0.2
[2019-03-13] MEDS: cefTRIAXone(*) 1 GM in NS 0.9% 50 ML* 50 ML IVPB SCH (21:51)
[2019-03-13] MEDS: Lidocaine Patch REMOVE* 1 NOTE MISC SCH (22:48)
[2019-03-14] MEDS: metroNIDAZOLE IV 500 MG/100ML* 500 MG/100 ML BAG IVPB SCH ×3 (00:51→16:39)
[2019-03-14] MEDS: Morphine ORAL CONCENTRATE* 5 MG/0.25 ML ORAL.SYRIN PO PRN ×8 (02:12→22:43)
[2019-03-14] MEDS ORDERED: Vancomycin Trough Check NOTE FOLLOW UP ONE (05:30)
[2019-03-14 05:57] LABS: Hematocrit 30 % (35-47); Hemoglobin 9.6 g/dL (12.0-16.0); Mean Corpuscular HGB Conc 32 g/dL (31-36); Mean Corpuscular Hemoglobin 26 pg (27-31); Mean Corpuscular Volume 79 fL (80-97); Mean Platelet Volume 9.2 fL (7.4-10.4); Platelet Count 145 10^3/uL (150-450); Red Blood Count 3.76 10^6 /uL (3.70-4.87); Red Cell Distribution Width 20 % (10-15); White Blood Count 22.7 10^3/uL (3.5-10.8)
[2019-03-14 06:14] LABS: EGFR African American 192.8 (>60); EGFR Non-African American 159.4 (>60)
[2019-03-14] MEDS: Levothyroxine TAB* 50 MCG TAB PO SCH (06:29)
[2019-03-14 06:30] LABS: Vancomycin Trough 18.1 mcg/mL
[2019-03-14 06:35] LABS: ABS Basophils 0.1 10^3/ul (0-0.2); ABS Lymphocytes 0.7 10^3/ul (1.0-4.8); ABS Monocytes 1.3 10^3/ul (0-0.8); ABS Neutrophils 20.6 10^3/ul (1.5-7.7); ABS Nucleated RBC 0.1 10^3/ul; Eosinophil % 0.1 %; Lymphocyte % 3.1 %; Nucleated Red Blood Cells % 0.3
[2019-03-14] MEDS: fentaNYL Patch Check Q Shift 1 NOTE FOLLOW UP SCH ×3 (06:35→18:42)
[2019-03-14] MEDS: Vancomycin(*) 1,250 MG in NS 0.9% 250 ML* 250 ML IVPB SCH ×2 (06:56→17:49)
[2019-03-14] MEDS: Insulin LISPRO* 1 UNITS UNIT SUBCUT SCH ×2 (08:43→12:27)
[2019-03-14] MEDS: fentaNYL PATCH 12 MCG/HR TRANSDERM SCH (09:40)
[2019-03-14] MEDS: fentaNYL PATCH 25 MCG/HR TRANSDERM SCH (09:41)
[2019-03-14] MEDS: Dexamethasone TAB* 4 MG PO SCH ×2 (09:45→21:16)
[2019-03-14] MEDS: Metoprolol Tartrate TAB* 25 MG PO SCH ×2 (09:46→21:16)
[2019-03-14] MEDS: Lidocaine PATCH 5%* 1 PATCH TRANSDERM SCH (09:47)
[2019-03-14] MEDS: Pantoprazole IV* 40 MG IV SCH (09:49)
[2019-03-14] MEDS: LORazepam INJ* 2 MG/ML 1 ML VIAL IV PUSH SCH ×2 (09:49→21:17)
--- NOTE | 2019-03-14 11:11 | PN ---
Progress Note - Progress Note Date of Service: 03/14/19 SOAP: Subjective: []A little more restless this AM, however appears to be resting comfortable upon assessment. Does yell out intermittently. Arousable to voice. Denies pain. Medications: Dexamethasone (Decadron Tab*) 4 mg PO BID [facility] Last Admin: 03/14/19 09:45 Dose: 4 mg Dextrose (Dextrose 50% Vial 50 Ml*) 25 ml IV PUSH .FOR FS < 60 - SS PRN PRN Reason: FS < 60 Fentanyl (Duragesic Patch 25 Mcg/Hr*) 25 mcg TRANSDERM Q72H [facility] Last Admin: 03/14/19 09:41 Dose: 25 mcg Fentanyl (Duragesic Patch 12 Mcg/Hr *) 12 mcg TRANSDERM Q72H [facility] Last Admin: 03/14/19 09:40 Dose: 12 mcg Heparin Sodium (Porcine) (Heparin Flush Picc/Ml/Cvc(*)) 1 - 3 ml FLUSH 0600, 1800 [facility]; Protocol Last Admin: 03/14/19 10:34 Dose: 3 ml Hydromorphone HCl (Dilaudid Inj1s*) 1 mg IV Q2H PRN PRN Reason: PAIN - MODERATE Last Admin: 03/13/19 18:48 Dose: 1 mg Metronidazole/Sodium Chloride (Flagyl 500 Mg Ivpb*) 500 mg in 100 mls @ 100 mls /hr IVPB Q8H [facility] Last Admin: 03/14/19 08:43 Dose: 100 mls/hr Ceftriaxone Sodium 1 gm/ (Sodium Chloride) 50 mls @ 100 mls/hr IVPB Q24H [facility] Last Admin: 03/13/19 21:51 Dose: 100 mls/hr Vancomycin HCl 1,250 mg/ (Sodium Chloride) 250 mls @ 166.667 mls/hr IVPB Q12H [facility] Last Admin: 03/14/19 06:56 Dose: 166.667 mls/hr Insulin Human Lispro (Humalog*) 0 units SUBCUT ACHS [facility]; Protocol Last Admin: 03/14/19 08:43 Dose: 2 units Levothyroxine Sodium (Synthroid Tab*) 50 mcg PO DAILY@0600 [facility] Last Admin: 03/14/19 06:29 Dose: 50 mcg Lidocaine (Lidoderm 5% Patch*) 1 patch TRANSDERM DAILY [facility] Last Admin: 03/14/19 09:47 Dose: 1 patch Lorazepam (Ativan Inj*) 0.5 mg IV PUSH Q4H PRN PRN Reason: agitation/anxiety Lorazepam (Ativan Inj*) 0.5 mg IV PUSH BID [facility] Last Admin: 03/14/19 09:49 Dose: 0.5 mg Metoprolol Tartrate (Lopressor Tab*) 25 mg PO BID [facility] Last Admin: 03/14/19 09:46 Dose: 25 mg Miscellaneous (Ativan Pyxis Nunez) 1 ea N/A .ATIVAN IV NUNEZ PRN PRN Reason: PYXIS NUNEZ Miscellaneous (Ativan Pyxis Nunez) 1 ea N/A .ATIVAN IV NUNEZ PRN PRN Reason: PYXIS NUNEZ Morphine Sulfate (Morphine Oral Concentrate*) 5 mg PO Q2H PRN PRN Reason: PAIN - SEVERE Last Admin: 03/14/19 10:40 Dose: 5 mg Ondansetron HCl (Zofran Inj*) 4 mg IV Q4H PRN PRN Reason: NAUSEA/VOMITING Last Admin: 03/09/19 10:06 Dose: 4 mg Pantoprazole Sodium (Protonix Iv*) 40 mg IV DAILY [facility] Last Admin: 03/14/19 09:49 Dose: 40 mg Pharmacy Consult (Vancomycin Per Pharmacy*) 1 note FOLLOW UP .VANC PER PHARMACY [facility]; Protocol Pharmacy Profile Note (Lidocaine Patch Remove*) 1 note N/A 2100 [facility] Last Admin: 03/13/19 22:48 Dose: 1 note Pharmacy Profile Note (Fentanyl Patch Check Q Shift) 1 note FOLLOW UP 0700, 1900 [facility] Last Admin: 03/14/19 09:45 Dose: 1 note Objective: [] Vital Signs Temp Pulse Resp BP Pulse Ox 97.3 F 94 16 122/82 97 03/14/19 07:23 03/14/19 07:23 03/14/19 11:02 03/14/19 07:23 03/14/19 07:23 Alert, orientation not assessed due to comfort focus HRR, S1S2 LS dim., very short periods of end expiratory apnea +BS, ostomy with dark brown stool Midline incision dressing without drainage Laboratory Results - last 24 hr 03/12/19 03/13/19 03/13/19 06:20 11:59 13:55 WBC 23.6 H RBC 3.14 L Hgb 7.7 L Hct 25 L MCV 78 L MCH 25 L MCHC 31 RDW 20 H Plt Count 147 L MPV 9.5 Neut % (Auto) 92.3 Lymph % (Auto) 3.1 [place] % (Auto) 4.3 Eos % (Auto) 0.1 Baso % (Auto) 0.2 Absolute Neuts (auto) 21.7 H Absolute Lymphs (auto) 0.7 L Absolute Monos (auto) 1.0 H Absolute Eos (auto) 0.0 Absolute Basos (auto) 0.1 Absolute Nucleated RBC 0.0 Nucleated RBC % 0.2 BUN Creatinine Est GFR ( Amer) Est GFR (Non-Af Amer) POC Glucose (mg/dL) 170 H Vancomycin Trough Blood Type O Positive Antibody Screen Negative Crossmatch See Detail 03/13/19 03/13/19 03/14/19 16:39 21:18 05:30 WBC RBC Hgb Hct MCV MCH MCHC RDW Plt Count MPV Neut % (Auto) Lymph % (Auto) [place] % (Auto) Eos % (Auto) Baso % (Auto) Absolute Neuts (auto) Absolute Lymphs (auto) Absolute Monos (auto) Absolute Eos (auto) Absolute Basos (auto) Absolute Nucleated RBC Nucleated RBC % BUN 15 Creatinine 0.39 L Est GFR ( Amer) 192.8 Est GFR (Non-Af Amer) 159.4 POC Glucose (mg/dL) 171 H 212 H Vancomycin Trough 18.1 Blood Type Antibody Screen Crossmatch 03/14/19 05:30 WBC 22.7 H RBC 3.76 Hgb 9.6 L Hct 30 L MCV 79 L MCH 26 L MCHC 32 RDW 20 H Plt Count 145 L MPV 9.2 Neut % (Auto) 91.1 Lymph % (Auto) 3.1 [place] % (Auto) 5.5 Eos % (Auto) 0.1 Baso % (Auto) 0.2 Absolute Neuts (auto) 20.6 H Absolute Lymphs (auto) 0.7 L Absolute Monos (auto) 1.3 H Absolute Eos (auto) 0.0 Absolute Basos (auto) 0.1 Absolute Nucleated RBC 0.1 Nucleated RBC % 0.3 BUN Creatinine Est GFR ( Amer) Est GFR (Non-Af Amer) POC Glucose (mg/dL) Vancomycin Trough Blood Type Antibody Screen Crossmatch Assessment: []78 yo female admitted metastatic NSCLC (mets to [employer] SUPER[employer] and bone) with GI perforation, POD 9 s/p Dennis/J-J bypass (clarification: yesterday was POD8), with GI bleed s/p 1 unit of PRBCs yesterday and hmg stable @ 8.6 today. Mrs. Christensen appears less anxious today and her pain is better controlled, however she continues to have melena and a very poor performance status. At this time plan is for d/c to hospice in a facility with senior care, location pending; she has deferred palliative RT which is appropriate as unfortunately she likely will not improve from her current condition. Today she appears to be declining somewhat more rapidly than initially expected and we will start to scale back on interventions. For now I recommend continuing her abx. until discharge. Plan: []1. GI Bleed: s/p transfusion PRBCs on 03/12 & 03/13 with hmg now >9 - anticoagulation on hold indefinitely d/t multiple episodes of bleeding and transition to end of life care - on IV PPI while inpt. and suggest cont.'d PO PPI on d/c - not a candidate for further intervention - stop further blood draws 2. SBO with perforation and subsequent peritonitis s/p Abd. surgery: post-op management as per surgery - dry dressings - cont. clears - cont. IV Rocephin and Flagyl (day 8), initially planned d/c on PO abx. Levaquin and Flagyl at least through D14, however with decline may not be indicated, will assess on d/c day 3. RLL PNA: persistent leukocytosis without fevers and no increased resp. distress - triplet abx. with Vanco coverage, see above 4. DVT: IVC filter in place - off anticoagulation as above 5. A.Fib & HTN: rate reasonably controlled at 90-120s with stable BP - cont. current meds for now 6. Hypothyroidism: cont. home dose levothyroxine 7. Discontinue FS and sliding scale insulin with decreasing PO intake DNR Dispo: plan for d/c with hospice, requires skill nursing, awaiting bed offer
[2019-03-14] MEDS: Lidocaine Patch REMOVE* 1 NOTE MISC SCH (21:19)
[2019-03-14] MEDS: cefTRIAXone(*) 1 GM in NS 0.9% 50 ML* 50 ML IVPB SCH (21:22)
[2019-03-15] MEDS: HYDROmorphone INJ1* 1 MG/ML SYRINGE IV PRN ×2 (01:11→04:45)
[2019-03-15] MEDS: metroNIDAZOLE IV 500 MG/100ML* 500 MG/100 ML BAG IVPB SCH ×2 (01:12→09:05)
[2019-03-15] MEDS ORDERED: NS 0.9% 250 ML* 250 ML ONE (07:10)
[2019-03-15] MEDS: fentaNYL Patch Check Q Shift 1 NOTE FOLLOW UP SCH (07:18)
[2019-03-15] MEDS: Vancomycin(*) 1,250 MG in NS 0.9% 250 ML* 250 ML IVPB SCH (07:20)
[2019-03-15] MEDS: Levothyroxine TAB* 50 MCG TAB PO SCH (07:23)
[2019-03-15] MEDS: LORazepam INJ* 2 MG/ML 1 ML VIAL IV PUSH SCH (09:03)
[2019-03-15] MEDS: Dexamethasone TAB* 4 MG PO SCH (09:03)
[2019-03-15] MEDS: Metoprolol Tartrate TAB* 25 MG PO SCH (09:03)
[2019-03-15] MEDS: Pantoprazole IV* 40 MG IV SCH (09:04)
[2019-03-15] MEDS: Lidocaine PATCH 5%* 1 PATCH TRANSDERM SCH (09:05)
[2019-03-15] MEDS ORDERED: LORazepam TAB(*) 0.5 MG PO PRN (09:08)
--- NOTE | 2019-03-15 09:44 | DS ---
- Discharge Summary Admission Date: 03/04/19 Discharge Date: 03/15/19 Discharge Diagnosis: 1. Bowel perforation with peritonitis: POD 10, s/p Dennis/J-J bypass, day 11 abx., no further fevers 2. GI Bleed: s/p 2 units PRBCs, not a candidate for further interventions 3. RLL PNA: clinically improved 4. DVT, R femoral vein: IVC filter in place, anticoagulation contraindicated d/ t recurrent bleeding 5. Metastatic NSCLC: transition to hospice 6. A.Fib: rate controlled on beta lashell 7. HTN: BP controlled with beta lashell 8. Hypothyroidism: cont. Levothyroxine Discharge Medications: Medication Instructions Recorded Confirmed Type Dexamethasone TAB* [Decadron TAB*] 4 mg PO BID #60 tab 03/15/19 Rx LORazepam TAB(*) [Ativan 0.5 MG 0.5 mg PO BID #60 tab MDD 2 03/15/19 Rx TAB (*)] LORazepam TAB(*) [Ativan 0.5 MG 0.5 mg PO Q4H PRN #60 tab MDD 6 03/15/19 Rx TAB (*)] tabs Levothyroxine TAB* [Synthroid TAB*] 50 mcg PO DAILY@0600 #30 tab 03/15/19 Rx Lidocaine PATCH 5%* [Lidoderm 5% 1 patch TRANSDERM DAILY #30 patch 03/15/19 Rx Patch*] Metoprolol Tartrate TAB* 25 mg PO BID #60 tab 03/15/19 Rx [Lopressor TAB*] Morphine ORAL CONCENTRATE* 5 mg PO Q2H PRN #30 oral.syrin MDD 03/15/19 Rx 12 doses fentaNYL PATCH 12 MCG/HR * 12 mcg TRANSDERM Q72H #10 patch 03/15/19 Rx [Duragesic Patch 12 Mcg/Hr *] MDD 37 mcg fentaNYL PATCH 25 MCG/HR* 25 mcg TRANSDERM Q72H #10 patch 03/15/19 Rx [Duragesic PATCH 25 Mcg/Hr*] MDD 37 mcg Condition: Stable Disposition: SNF with hospice, [facility] Activity: OOB with full assist (recommend marc), turn and position [id number] Diet: Clear liquids Wound Care: dry, sterile dressing, ciera as per surgery Hospital Course: Please see admission note for full H&P, however, briefly, Mrs. 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 Mrs. Christensen presented to the ER via EMS in the evening of 03/03 with diffuse pain and constipation. A CT of the abd. and pelvis with contrast revealed perforation of the bowel with diverticulosis, abscess, and question of RLL lung mass vs. consolidation. An NG tube was placed and IV Cipro and Flagyl were initiated. She was admitted to the ICU on the AM of 03/04 with surgical consultation completed by Dr. Lara. On the evening of 03/04 she underwent Lapartomy with Dennis/J-J bypass and biopsy of an incidentally found small bowel mass. Blood cultures were negative, however abscess reveal E.coli, Proteus M., Enterococcus F., Enterococcus A., and Anaerobic gram neg. bacilli. To note urine on admission was also positive for E.Coli. On 03/05 she experienced A.Fib requiring Amiodarone drip and a transthoracic echo revealed normal EF. That afternoon she was extubated and off antiarrhythmic. On 03/06 the Cipro was changed to Cefepime due to hemoptysis and concern for recurrent PNA. Her anti-coagulation was stopped (to note she was off anti-coagulation for her A.Fib on admission d/t hemoptysis during her initial work-up and diagnosis of NSCLC). A doppler that afternoon of bilat. LEs was obtained for swelling and this revealed a L femoral DVT. An IVC filter was placed on 03/08. That day, Vancomycin was added to her regimen and the Cefepime was changed to Ceftriaxone. On the morning of 03/09 she was transferred out the ICU however she complained of increased abd. pain and repeat CT of showed no acute changes. On 03/10 the NG was removed and clears initiated. A Fentanyl patch was initiated on 03/11 and radiation therapy was consulted for persistent right shoulder pain felt r/t known bone met. This occurred on 03/12, however Mrs. Christensen declined with clear understanding of potential benefits vs. potential for limited improvement. On the morning of it was also noted that she had melena from her ostomy and stool guiac was positive for blood. The small bowel biopsy was negative for malignancy, however it was unclear if it was completely resected or if this represented bleeding at the surgical sites. She received 1 unit PRBCs. Anti-coagulation was once again discontinued and felt at this time to be contraindicated. She was not felt to be a candidate for further evaluation or intervention. Due to Mrs. Christensen's limited improvement in performance status and declination of RT, hospice was recommended. She was initially seen in consultation with palliative care on 03/07 at which time she wanted to pursue treatment for her cancer if she could. She had, however, appropriately, signed a DNR previously. Both she and her family stated understanding and evaluation for nursing home care and placement was initiated. Scheduled ativan was initiated for mild agitation. On 03/13 surgical services discontinued her abd. wound packing. She received a second unit of blood on 03/13 and plan was made to discontinue further blood draws. Mrs. Christensen has been feeling reasonably well and states her pain has been controlled. She is tolerating PO clears and her ostomy continues to have dark brown output. She has a anderson catheter in place and this is draining appropraite amounts of concentrated urine. Mrs. Christensen has been offered a bed at [facility] and while she would prefer to go home she hesitantly agrees to the need for 24 hour nursing care, she and her family have agreed to placement and she will be discharged this AM via ambulance. She will initiate hospice services one at the SNF. At this time Mrs. Christensen has completed 11 days of antibiotics and with a prognosis of weeks at most we have recommended stopping all antibiotics at this time. She has not had any fevers and her leukocytosis is secondary to steroids for [employer] mets. DNR/DNI Hospice sign on @ [facility], no follow-up required
[2019-03-15] MEDS: Morphine ORAL CONCENTRATE* 5 MG/0.25 ML ORAL.SYRIN PO PRN (10:52)
[2019-03-15 16:26] VITALS: BP 126/55
[2019-03-15] MEDS ORDERED: LORazepam TAB(*) 0.5 MG PO SCH (21:00)
[2019-03-16] MEDS ORDERED: Vancomycin Trough Check NOTE FOLLOW UP ONE (05:30)
== END 2019-03-15 12:10 | DRG 853 ==
LOC: ED 22:50 → MEDTELE 03-04 06:24 → ICU 03-04 22:23 → SSU 03-09 10:15 → MED 03-14 22:00
PROVIDERS: ADMIT Internal Medicine; ATTEND Internal Medicine Hematology & Oncology
PROC: 0D1 Gastrointestinal System, Bypass (ICD-10-PCS; 2019-03-04)
PROC: 0DBN0ZZ Excision of Sigmoid Colon, Open Approach (ICD-10-PCS; principal; 2019-03-04 18:30)
PROC: 0BH17EZ Insertion of Endotracheal Airway into Trachea, Via Natural or Artificial Opening (ICD-10-PCS; 2019-03-05)
PROC: 5A1935Z Respiratory Ventilation, Less than 24 Consecutive Hours (ICD-10-PCS; 2019-03-05)
PROC: 5A09357 Assistance with Respiratory Ventilation, Less than 24 Consecutive Hours, Continuous Positive Airway Pressure (ICD-10-PCS; 2019-03-06)
PROC: 05H633Z Insertion of Infusion Device into Left Subclavian Vein, Percutaneous Approach (ICD-10-PCS; 2019-03-10)
PROC: 30233N1 Transfusion of Nonautologous Red Blood Cells into Peripheral Vein, Percutaneous Approach (ICD-10-PCS; 2019-03-12)
PROC: 06H03DZ Insertion of Intraluminal Device into Inferior Vena Cava, Percutaneous Approach (ICD-10-PCS; 2019-03-13)
DX: A41.9 Sepsis, unspecified organism (principal); J18.1 Lobar pneumonia, unspecified organism; J96.01 Acute respiratory failure with hypoxia; K57.20 Diverticulitis of large intestine with perforation and abscess without bleeding; C34.90 Malignant neoplasm of unspecified part of unspecified bronchus or lung; C79.31 Secondary malignant neoplasm of brain; C79.51 Secondary malignant neoplasm of bone; J90 Pleural effusion, not elsewhere classified; I82.412 Acute embolism and thrombosis of left femoral vein; R04.2 Hemoptysis; Z68.41 Body mass index [BMI] 40.0-44.9, adult; K92.1 Melena; E03.9 Hypothyroidism, unspecified; I10 Essential (primary) hypertension; Z96.641 Presence of right artificial hip joint; F17.210 Nicotine dependence, cigarettes, uncomplicated; M48.00 Spinal stenosis, site unspecified; E66.9 Obesity, unspecified; K59.09 Other constipation; Z66 Do not resuscitate; I48.91 Unspecified atrial fibrillation; R59.0 Localized enlarged lymph nodes; E78.5 Hyperlipidemia, unspecified; M19.90 Unspecified osteoarthritis, unspecified site; Z88.1 Allergy status to other antibiotic agents; Z88.0 Allergy status to penicillin; Z88.8 Allergy status to other drugs, medicaments and biological substances; Z90.49 Acquired absence of other specified parts of digestive tract; Z90.710 Acquired absence of both cervix and uterus
CPT/HCPCS: 36415; 36600; 37191; 71045; 71260; 74177; 80048; 80053; 80076; 80202; 81003; 81015; 82272; 82565; 82803; 83605; 83690; 83735; 83880; 84100; 84145; 84478; 84484; 84520; 85025; 85027; 85610; 85730; 86140; 86850; 86900; 86901; 86922; 87070; 87073; 87077; 87086; 87186; 87205; 87640; 87641; 88112; 88307; 93005; 93306; 93970; 94002; 94003; 94640; 94660; 99232; 99233; 99239; 99284; A9270-GY; C1751; C1776; C1880; G8978-GP-CK; G8978-GP-CL; G8979-GP-CI; G8987-GO-CM; G8988-GO-CI; J0282; J0330; J0692; J0696; J0744; J1100; J1170; J1240; J1644; J1650; J1720; J1885; J1940; J2060; J2250; J2270; J2405; J2704; J2997; J3010; J3370; J3475; J3480; J3490; J8540; P9040; Q9967